=== PATIENT | female | born 1955 | race Caucasian/White ===

== ENCOUNTER 2018-03-11 10:48 | Outpatient (CLI) | payer MEDICAID, SELFPAY ==
[2018-03-11 13:22] LABS: ALT 48 U/L (12-78); AST 29 U/L (15-37); Albumin 3.9 g/dL (3.4-5.0); Alkaline Phosphatase 67 U/L (46-116); Anion Gap 8.2 mmol/L (3-11); BUN 26 mg/dL (7-18); CO2 27.8 mmol/L (21.0-32.0); CREATININE 0.97 mg/dL (0.55-1.02); Calcium 8.5 mg/dL (8.5-10.1); Chloride 104 mmol/L (98-107); Cholesterol 226 mg/dL (50-200); Estimated GFR 58.19 (mL/min/1.73m2); Glucose 86 mg/dL (70-100); HDL Cholesterol 65 mg/dL (40-60); LDL CHOLESTEROL 137 mg/dL (<100); Potassium 4.7 mmol/L (3.5-5.1); Sodium 140 mmol/L (136-145); TSH (W/Ref FT4) 4.64 uIU/mL (0.358-3.74); Total Protein 6.9 g/dL (6.4-8.2); Triglyceride 186 mg/dL (30-150)
[2018-03-11 14:02] LABS: Hemoglobin A1C 5.4 % (4.5-6.2)
== END 2018-03-11 11:08 ==
PROVIDERS: PCP Family Medicine; Visit Provider Family Medicine
DX: I10 Essential (primary) hypertension (principal); E03.9 Hypothyroidism, unspecified; E06.9 Thyroiditis, unspecified
CPT/HCPCS: 36415; 80053; 80061; 83721; 83036; 84439; 84443

== ENCOUNTER 2018-03-20 01:02 | Outpatient (CLI) | payer MEDICAID, SELFPAY ==
[2018-03-20 12:48] LABS: Abs Immature Grans 0.03 k/cumm (0.0-0.09); Absolute Basophil Count 0.07 k/cumm (0.0-0.2); Absolute Eosinophil Count 0.48 k/cumm (0.0-0.7); Absolute Lymphocyte Count 3.12 k/cumm (1.2-3.4); Absolute Monocyte Count 0.99 k/cumm (0.11-0.7); Absolute Neutrophil Count 4.12 k/cumm (1.2-6.7); Basophils % 0.8; Eosinophils % 5.4; HCT 42.8 % (36.0-46.0); HGB 14.1 g/dL (12.0-15.5); Immature Grans % 0.3; Lymphocytes % 35.4; Mean Corp. HGB Concentration 32.9 g/dL (32.0-36.0); Mean Corpuscular Hemoglobin 31.9 pg (27.0-33.0); Mean Corpuscular Volume 96.8 fL (80-95); Mean Platelet Volume 9.9 fL (8.0-11.0); Monocytes % 11.2; Neutrophils % 46.9; Platelet Count 279 x1000/uL (130-400); RBC 4.42 m/cumm (4.00-5.20); RBC Distribution Width 13.1 % (11.7-14.6); White Blood Cell Count 8.81 k/cumm (4.4-10.8)
[2018-03-20 13:14] LABS: ALT 40 U/L (12-78); AST 28 U/L (15-37); Albumin 3.7 g/dL (3.4-5.0); Alkaline Phosphatase 68 U/L (46-116); CREATININE 0.97 mg/dL (0.55-1.02); Cholesterol 192 mg/dL (50-200); Estimated GFR 58.19 (mL/min/1.73m2); HDL Cholesterol 60 mg/dL (40-60); LDL CHOLESTEROL 113 mg/dL (<100); Triglyceride 123 mg/dL (30-150)
[2018-03-20 13:33] LABS: C-Reactive Protein 1.27 mg/dL (0.0-0.3)
[2018-03-20 14:48] LABS: Anion Gap 13.1 mmol/L (3-11); BUN 27 mg/dL (7-18); Bilirubin, Total 0.5 mg/dL (0.2-1.0); CO2 22.9 mmol/L (21.0-32.0); Calcium 8.8 mg/dL (8.5-10.1); Chloride 106 mmol/L (98-107); Glucose 93 mg/dL (70-100); Potassium 4.4 mmol/L (3.5-5.1); Sodium 142 mmol/L (136-145); Total Protein 6.7 g/dL (6.4-8.2)
== END 2018-03-20 01:22 ==
PROVIDERS: PCP Family Medicine; Visit Provider Internal Medicine Rheumatology
DX: Z79.899 Other long term (current) drug therapy (principal); Z13.220 Encounter for screening for lipoid disorders; M06.9 Rheumatoid arthritis, unspecified; I10 Essential (primary) hypertension; M17.11 Unilateral primary osteoarthritis, right knee; Z01.812 Encounter for preprocedural laboratory examination
CPT/HCPCS: 36415; 80053; 80061; 83721; 82040; 82565; 84075; 84450; 84460; 85025; 86140

== ENCOUNTER 2018-03-20 12:56 | Outpatient (CLI) | payer MEDICAID, SELFPAY ==
--- NOTE | 2018-03-20 13:53 | W.PREOPHP ---
Assessment and Plan (1) Arthritis of right knee: Current visit: Yes Status: Chronic Plan: Used knee models to review surgery including surgical technique, pertinent anatomy, and recovery process. Benefits and risks including but not limited to risk of infection, damage to soft tissue/nerve/blood vessels were discussed with patient in detail. After discussion and understanding the associated risks of the procedure patient wishes to proceed with surgery. Patient had opportunity to have questions answered to her satisfaction. Patient had discontinued tocilizumab approximately 4 weeks ago as per pre-surgical recommendation from Dr. Vicente and Dr. Marie. Patient will contact office if any issues arise. She will be scheduled for right total knee replacement with Dr. Vicente. History of Present Illness Chief Complaint: Pre-op for my Right knee replacement Narrative: Ms. Koch is a 63-year-old female who presents to clinic for preoperative visit for right total knee replacement with Dr. Vicente. Patient reports she has been experiencing bilateral knee pain for greater than 10 years. Patient's left knee had been worse than her right until she had a left TKA done on July 31, 2017. Patient reports since she has had her left knee replaced her right knee pain has been more aggravated. Patient is able to identify right knee pain as located in the medial aspect with occasional pain surrounding the patella. Patient describes pain as feeling weak and achy with occasional muscle spasms. Prior to receiving her left TKA patient received bilateral knee injections which provided pain relief, following her left TKA patient received a right knee injection on October 29, 2017 which provided slight pain relief but lasted less than 1 month. Pain is aggravated by going up and especially down stairs, getting in and out of her 's truck, and with squatting to garden. Patient reports she is unable to do several activities she used to enjoy due to her knee pain including yoga, snowshoeing and volleyball. X-rays of her right knee from May 2017 reveal significantly decreased medial joint space with near [id number] articulation seen in weightbearing films, periarticular spurring and degenerative changes of the patellofemoral joint consistent with severe DJD of the right knee. Pertinent Surgical Information Past medical history of hypertension, environmental allergies with associated asthma, rheumatoid arthritis, hypothyroidism Patient reports she only experiences asthma when she has significant environmental allergies. Reports rare episodes of asthma attacks, reports symptoms resolved with an inhaler. She states maximum of 2 episodes in the past year. Denies past medical history of: stroke, cardiac issues, angina, COPD, sleep apnea, renal issues, liver issues, hepatitis, gastrointestinal issues, ulcers, hyperlipidemia, bleeding disorders, seizures, migraines, anxiety, depression, diabetes Denies prior complications from surgery or anesthesia. Review of Systems Constitutional Denies fever(s), Denies frequent falls and Denies headache(s) Eyes Denies change in vision ENT Denies headache(s), Denies epistaxis, Denies nasal congestion, Denies nasal discharge and Denies sore throat Cardiovascular Denies chest pain, Denies rapid heart rate, Denies irregular heart rhythm, Denies dyspnea, Denies dyspnea on exertion and Denies slow heart rate Respiratory Denies dyspnea, Denies dyspnea on exertion and Denies wheezing Gastrointestinal Denies abdominal pain, Denies melena, Denies hematochezia, Denies constipation, Denies diarrhea, Denies nausea and Denies vomiting Genitourinary Denies hematuria, Denies dysuria and Reports urinary urgency Comments: Has history of urinary urgency which is unchanged in recent months Musculoskeletal Reports as per HPI, Denies numbness and Denies tingling Neurologic Denies frequent falls, Denies headache(s), Denies numbness and Denies tingling Psychiatric Denies anxiety and Denies depression Allergic/Immunologic Denies wheezing PFSH Family History Mother Heart disease Osteoarthritis Father Stroke Brother Heart disease Brother No problems noted. Sister No problems noted. Sister No problems noted. Other Diabetes Family history of breast cancer Family history of colon cancer Personal history of malignant neoplasm Medical History Thrombophlebitis (Chronic 05/20/13) Rheumatoid arthritis (Chronic) Primary osteoarthritis of both knees (Chronic 05/15/17) Increased BMI (Chronic) Hypothyroidism (Chronic 03/20/11) Family history of breast cancer (Chronic 10/26/15) Essential hypertension (Chronic 03/14/13) Asthma due to environmental allergies (Chronic) Environmental allergies (Chronic) Hypertension Hypothyroidism Rheumatoid arthritis Social History marital status: current occupational status: other details: 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 replace frequency: 1-2 times per week duration: 15-30 minutes/day Smoking/Tobacco Use Status: Former Tobacco Use quit date: 01/13/14 how long ago did patient quit smokin YRS AGO 01/13/14 (former use: 1/2 ppd for 25 years) alcohol intake: current alcohol intake frequency: holidays/special occasions only Alcohol type: beer and wine substance use type: does not use seatbelt use: always Surgical History Presence of tooth-root and mandibular implants (Chronic) Colonoscopy - IV Sedation (02/09/16) Replacement of total knee joint Meds Home Medications Medication Instructions Recorded Confirmed Type hydroxychloroquine [Plaquenil] 400 mg PO HS 11/15/12 03/20/18 History methotrexate sodium 4 tab PO Q WEEK #36 11/15/12 03/20/18 History albuterol sulfate [Ventolin HFA] 2 puff INHALATION QID PRN #1 ea 05/11/15 03/20/18 History D-Mulsion 5 drp PO DAILY 01/09/17 03/20/18 History Thyrocson 1 cap PO DAILY 01/09/17 03/20/18 History Viracon 1 cap PO DAILY 01/09/17 03/20/18 History Zinc Ag 2 cap PO BID 01/09/17 03/20/18 History Ostinol 5x 1 tab PO DAILY 07/27/17 03/20/18 History levothyroxine 125 mcg PO DAILY #90 tab-cap 08/14/17 03/20/18 Rx aspirin 81 mg PO DAILY tab-cap 09/18/17 03/20/18 History tocilizumab [Actemra] 162 mg SQ qWeek 09/18/17 03/20/18 History atenolol 50 mg PO HS 03/20/18 03/20/18 History loratadine [Claritin] 10 mg PO DAILY PRN 03/20/18 03/20/18 History Allergies Allergy/AdvReac Type Severity Reaction Status Date / Time shellfish derived Allergy Severe Anaphylaxsi Unverified 03/20/18 18:18 s adalimumab [From Humira] AdvReac Intermediate Cold Unverified 03/20/18 18:18 sores/vomiting, lips swelled lisinopril AdvReac Intermediate ELEVATED Unverified 03/20/18 18:18 CREATINE SHRIMP Allergy Severe Anaphylaxsi Uncoded 03/20/18 18:18 s lobster Allergy Intermediate Nausea Uncoded 03/20/18 18:18 Exam Const General: cooperative and no acute distress HENMT Head: normal to inspection, normocephalic and atraumatic Ears: external ears normal General nose exam: external nose normal and no nasal discharge Face and sinus: face symmetric Mouth: oral mucosae normal, lip normal, tongue normal and moist mucous membranes Teeth and gingiva: dentition normal Throat: posterior oropharynx normal Eyes General: appearance normal, both eyes and all related structures Pupils: PERRL EOM: EOM intact bilaterally Neck Neck: trachea midline Carotids: normal carotid upstroke Lymphatic: no lymphadenopathy noted Resp Effort & Inspection: normal respiratory effort and able to speak in complete sentences Auscultation: clear to auscultation bilaterally, no rales, no rhonchi and no wheezes Cardio Heart Sounds: S1 normal, S2 normal, no murmurs, no rubs and no other Pulses: radial pulses present bilaterally GI Palpation: soft, no hepatosplenomegaly and nontender Auscultation: normal bowel sounds Skin General skin exam: no rashes or lesions noted Extrem Other: Right knee examination: Skin is intact without areas of erythema, edema, lesions or rashes. Tenderness to palpation along medial aspect of joint and slight tenderness at lateral aspect with palpation. Active range of motion reveals flexion contracture of approximately 5 degrees and has flexion of 110 degrees. Passive range of motion yields flexion of 120 degrees with pain elicited at end of range of motion. Knee is stable to valgus and varus stress with slight tenderness elicited along the medial aspect with knee stress. No patellar apprehension is noted. Muscle strength testing result resisted flexion and extension was 5 out of 5 and did not elicit pain. Results Labs : 03/20/18 13:30 03/20/18 13:30 Laboratory Results - last 24 hr 03/20/18 13:30 WBC 9.47 RBC 4.44 Hgb 14.3 Hct 42.8 MCV 96.4 H MCH 32.2 MCHC 33.4 RDW 13.0 Plt Count 267 MPV 9.3
== END 2018-03-20 13:16 ==
PROVIDERS: PCP Family Medicine; Visit Provider Student in an Organized Health Care Education/Training Program
DX: R69 Illness, unspecified (principal)
CPT/HCPCS: 36415; 80048; 85027; NC

== ENCOUNTER 2018-03-26 08:01 | Inpatient (IN) | payer MEDICAID, SELFPAY ==
[2018-03-26] VITALS (12 sets, daily range): BP systolic 93–148; BP diastolic 51–116; PULSE 56–74; RESP 13–21; TEMP 36.4–36.6; O2SAT 93–98
[2018-03-26] MEDS: Celecoxib 200 MG CAP 400 MG PO (09:11)
[2018-03-26] MEDS: Gabapentin 300 MG CAP PO ×2 (09:11→21:20)
[2018-03-26] MEDS: Acetaminophen 500 MG TAB 1000 MG PO ×3 (09:12→19:22)
[2018-03-26] MEDS: Lactated Ringers 1,000 ML 80 ML IV ×3 (09:13→23:07)
[2018-03-26] MEDS: oxyCODONE-CR 10 MG TABCR PO (09:13)
[2018-03-26] MEDS: Bupivacaine 0.25% Pres-Free 10 ML VIAL (10:15)
[2018-03-26] MEDS: Bupivacaine LIPOSOME/PF 133 MG/10 ML VIAL IJ ×2 (10:15→12:40)
[2018-03-26] MEDS: Bupivacaine 0.25% Pres-Free 30 ML VIAL (12:40)
[2018-03-26] MEDS: Ketorolac 30 MG/ML VIAL (12:40)
--- NOTE | 2018-03-26 15:01 | PT.INNT ---
Date of service: 03/26/18 Time of Service: 15:01 PT Notes PHYSICAL THERAPY NOTE 03/26/18 PT consult received, chart reviewed. Pt not yet on unit to be evaluated. Nina Nayak PT
--- NOTE | 2018-03-26 15:08 | PDOC.ANES ---
Note pt had intra op emesis coffee colored liquid while sedated under spinal anesthesia. Doubt pulmonary aspiration but observe for signs: dyspnea, congestion,fever, wheezing. See anesthesia record under comments. Suctioned mouth, no material found on deep suctioning. Lung sounds clear, saturation good, pt reactive. Quick exam with [place] scope showed no material at cords. In further discussion with patient in PACU, she has been having gastric issues with arthritis meds including vomiting what she thought was coffee. Dr. Vicente aware and has her on PPI.Advised her to follow up with her specialist regarding her gastric issues.
--- NOTE | 2018-03-26 15:11 | ANES_ITS ---
Note pt had intra op emesis coffee colored liquid while sedated under spinal anesthesia. Doubt pulmonary aspiration but observe for signs: dyspnea, congestion,fever, wheezing. See anesthesia record under comments. Suctioned mouth, no material found on deep suctioning. Lung sounds clear, saturation good , pt reactive. Quick exam with [place] scope showed no material at cords. In further discussion with patient in PACU, she has been having gastric issues with arthritis meds including vomiting what she thought was coffee. Dr. Vicente aware and has her on PPI.Advised her to follow up with her specialist regarding her gastric issues.
[2018-03-26] MEDS: Celecoxib 100 MG CAP 200 MG PO (19:22)
[2018-03-26] MEDS: Aspirin 81 MG CHEW PO (19:22)
[2018-03-26] MEDS: Atenolol 50 MG TAB PO (21:20)
[2018-03-26] MEDS: Hydroxychloroquine 200 MG TAB 400 MG PO (21:20)
[2018-03-27] MEDS: Levothyroxine 125 MCG TAB PO (05:56)
--- NOTE | 2018-03-27 06:39 | W.PM.OP ---
Date of service: 03/26/18 Time of Service: 12:39 Operative Note DATE OF PROCEDURE: 03/26/18 PRE-OP DIAGNOSIS: Right knee osteoarthritis POST-OP DIAGNOSIS: same PROCEDURE: Right Total Knee Replacement SURGEON: Sage Vicente PATIENT TRANSPORTATION DRIVER: Ubaldo Mead ANESTHESIA: regional and spinal ESTIMATED BLOOD LOSS: 300 PATHOLOGY: none sent TOURNIQUET TIME: 35 COMPLICATIONS: None Patient was transported to: PACU Patient's condition: stable Implants: 1. Depuy Attune Posterior Stabilized Femoral Component, Size 6 2. Depuy Attune Fixed Platform Tibial Component, Size 4 3. Depuy Attune 6 x 7 mm fixed, Stabilized Poly 4. Depuy Attune Patellar Component, Size 35 mm Indications: I have seen Ela in clinic for symptoms of RIGHT knee arthritis, confirmed with radiographic findings. Ela has exhausted nonoperative methods and was having significant limitations in daily function and desired better function and less pain. I discussed the technical details of a knee replacement. I explained the risks of the procedure to include, but not limited to, bleeding, infection, pain, stiffness, fracture, damage to nerves and vessels, damage to muscles and tendons, loosening, need for repeat procedure, blood clot and cardiopulmonary demise. Despite these risks, she elected to proceed. Findings: There was significant signs of arthritis throughout the knee. There is also significant synovitis seen throughout the knee which was debrided. Procedure Description: Ela was greeted in the preoperative holding area where the correct side was identified and marked. The consent was reviewed with the patient and signed. The history and physical was updated. All questions were answered. Preoperative mediacations were administered: Acetaminophen 1000mg, Celebrex 400mg, Gabapentin 300mg, and Oxycontin 10mg. An adductor canal block was then administered by the anesthesia team in the PACU. Ela was taken back to the operating room. A spinal anesthestic was then administered. The patient was placed into the supine position on the operating room table. A nonsterile tourniquet was placed high onto the leg but only used for cementing. Posts were placed for positioning during the procedure. All bony prominences were well padded. Prophylactic antibiotics in the form of cefazolin were administered. 1g of Tranxemic Acid was given intravenously within 30 minutes of incision. The right leg was then prepped with Chloraprep and draped in a standard fashion with impervious stockinette and extremity drape with Iodine impregnated skin protection. A timeout to confirm correct identity, side and site, procedure, allergies, anesthesia, and medical concerns was performed. With the knee in some flexion, a midline incision was made overlying the knee. Full thickness skin flaps were raised once the extensor mechanism was encountered. These were raised medially and laterally. Any bleeding was controlled with electrocautery. Once the extensor mechanism was fully exposed, a medial parapatellar arthrotomy was performed in a flexed position. All bleeding from the arthrotomy and the geniculate arteries was coagulated. A medial subperiosteal peel was performed with electrocautery to the midcoronal plane. Due to the significant varus deformity the entire medial tibial plateau was exposed. The fat pad was removed while keeping the patellar tendon protected. The anterior distal femur synovium was removed for later visualization. The ACL and PCL were resected and the anterior horn of the lateral meniscus was transected. The knee was then flexed with the patella everted. Large osteophytes from the tibia were removed. Large osteophytes from the femur were removed. Hypertrophic synovium from within the knee was also removed sharply. Using a step drill, and based on preoperative templating, the femoral canal was entered. This was done with a step drill without any difficulty. The intramedullary distal femoral cut guide was inserted, set to a 5 degree valgus cut and 10mm cut thickness. There was some hypoplasia of the lateral femoral condyle and any remnant cartilage of the medial femoral condyle was removed for appropriate thickness. The distal femoral cut guide was then held in position and pinned. With the soft tissues protected, the distal cut was performed. This was passed over a few times to ensure a planar cut. I then turned attention to the tibia. The extramedullary guide was placed onto the leg. The distal aspect was slid medial to adjust for position of center of ankle and stay in line with shaft of the tibia. Approximately 3-5 degrees of posterior slope was kept in the proximal cutting guide. The center of the guide was aligned with the PCL. The stylus was used to assess cut thickness. The medial side, most involved side, was set for a 4mm cut. This was then held in position and pinned into place with 2 additional pins and a cross pin for stability. The medial and lateral collateral ligaments were protected and the cut was performed. With this completed, it was assessed and noted to be of appropriate dimensions. The guide was removed. A spacer block was inserted and the knee was brought into extension. The 6mm spacer block provided full extension, without hyperextension and with stability of both the medial and lateral collateral ligaments was assessed. The pins from the femur and the tibia were then removed. The distal femur was then sized. The anterior stylus was placed onto the lateral ridge of the anterior femur. This indicated a size 6 femur. The external rotation of the guide was adjusted to 5 degrees to match the epicondylar axis, perpendicular to Iza?s line. The 4-in-1 cutting guide was the placed. The posterior medial femur cut was evaluated and appeared of good thickness. The spacer block was inserted underneath the cutting guide and stability was confirmed in 90 degrees of flexion. An hernandez wing was used to confirm appropriate position of the anterior cut to avoid notching. This cutting guide was ensured to be flush on the cut surface and then pinned into place with headed pins. While protecting the soft tissues, quad tendon, and collateral ligaments, the anterior and posterior cuts were performed with a saw. The central two pins were removed and the posterior and anterior chamfers were cut next. The notch-cutting guide was placed. This was pinned to lateralize the femoral component as much as possible while keeping it flush on the cut surface. This was then pinned into position. A reciprocating saw was used to make the notch cut. A rasp smoothed the cut surfaces. A trial posterior stabilized femoral component was then inserted, impacted down to the cut surfaces, and the lug holes were drilled. A provisional trial tibial component was placed and the knee was brought through range of motion. The polyethylene was trialed until there was good flexion and extension with excellent stability to the medial and lateral collaterals. The patella was tracking without thumbs. The tibial cut surface was fully exposed. The medial and lateral menisci were removed. The tibia was then sized as a 4. The tibia had been previously marked during trialing to correspond to the center of the tibial component to help with rotation. The trial was aligned to this ubaldo, approximately rotated to the medial 1/3rd of the tibial tubercle. The trial was pinned into place. The tibia was prepared with a reamer and a keel punch. The knee was then brought into extension and the patella was measured as 27 mm. Using the patellar clamp and cut guide, this was resected to a flat surface with at least 13mm of thickness remaining. The size 35 mm patella fit the best. This was oriented and then clamped into position. The lugs were drilled. The trial components were removed. The final components, except for the polyethylene were opened on the back table. The periosteal and capsular tissues, especially posteriorly, around the knee were then systematically injected with a periarticular cocktail consisting of 50cc 0.25% Marcaine, 30mg Ketorolac, 20cc of Exparal and 50cc of injectable saline. The tourniquet was then inflated to 275mmHg. The knee was thoroughly irrigated with a pulse lavage and dried. On the back table, with the implants opened, the cement was mixed. 2 batches of antibiotic laden cement were prepared with vacuum assistance. After the cement was ready a small amount was placed on to the back side of the tibial component at the keel. A small amount was placed onto the posterior flange of the femur. Cement was manual pressurized and impregnated into the cut surface of the tibia. The tibial component was then inserted into the cut surface and impacted into position. Excess cement was removed and the component was reimpacted. Again, excess cement was removed and our attention was then turned to the femur. The femoral cut surface was once again dried and cement was manually impacted into the cut surface. The femoral component was lined with the lug holes and impacted. Excess cement was removed. It was ensured to be down against the cut surface. The trial polyethylene was then inserted and the leg was brought out into full extension for the duration of the cement curing process, approximately 15min. Cement was lastly manually impacted into the cut surface of the patella and the patellar button was clamped into position and held. During this process attention was turned to the gutters of the knee and for all interfaces for any excess cement. After the cement had finally cured, approximately 15min, the clamp was removed from the patella and the knee was taken through range of motion. A size 7 mm polyethylene component provided the best range of motion and stability with less than 2mm gapping with medial and lateral stress and full extension without significant hyperextension. The patella was tracking with a no-thumbs technique. The trial poly was removed and once again the knee was checked for any loose, excess, or errant cement. The poly component was then inserted and impacted into position after cleaning and drying the tibial tray. The capsule was then reapproximated with a No. 1 Vicryl at multiple locations. The capsule was finally closed with a No. 2 Stratafix, barbed suture. The tourniquet was then released and the arthrotomy appeared watertight without significant bleeding. The second dosing of 1g TXA was started. Deep tissues were then reapproximated with 0 Vicryl and 2-0 Vicryl. The skin was closed with a running 3-0 Monocryl in a subcuticular fashion. This was reinforced with skin glue. A Mepilex silver dressing was applied along with a advv-wa-pioix DANIKA wrap. A CryoCuff was applied. Ela was transferred to the hospital bed without difficulty an suffering no apparent complication. Ela has a good prognosis. Physical therapy will start today and without restrictions, weight-bearing as tolerated. Aspirin 81mg BID will be used for DVT prophylaxis.
[2018-03-27 07:15] VITALS: BP 145/86; PULSE 63; RESP 18; TEMP 36.6; O2SAT 96
--- NOTE | 2018-03-27 08:04 | PDOC.CMIN ---
- If Service Date Differs Date of service: 03/27/18 Time of Service: 13:03 Care Management Initial Assess REASON FOR HOSPITALIZATION:: (R) Knee DJD PAST MEDICAL HISTORY/PAST SURGICAL HISTORY:: Thrombophlebitis (Chronic 05/20/13). Rheumatoid arthritis (Chronic). Primary osteoarthritis of both knees (Chronic 05/15/17). Increased BMI (Chronic). Hypothyroidism (Chronic 03/20/11). Family history of breast cancer (Chronic 10/26/15). Essential hypertension (Chronic 03/14/13). 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 Environmental allergies (Chronic). Hypertension. Hypothyroidism. Rheumatoid arthritis. Presence of tooth-root and mandibular implants (Chronic). Colonoscopy - IV Sedation (02/09/16). Replacement of total knee joint PREVIOUS FUNCTIONAL STATUS/SOCIAL/FAMILY SUPPORTS:: Ela resides with her [facility] in [facility] CURRENT FUNCTIONAL STATUS:: Currently Ela is sitting up in her recliner when this program writer visits this morning. She is pleasant and open to discussion. ADVANCE DIRECTIVES:: On file - [employer] Koch is agent. Son Fredo Koch is alternate Has patient been provided with information about the portal?: Yes Did the patient sign up for the portal?: No CODE STATUS:: Full Code INSURANCE COVERAGE / FINANCIAL ISSUES:: Medicaid CURRENT HOME/COMMUNITY SERVICES/EQUIPMENT:: Currently Ela has a cane and FWW at home. She has no home services. PRIMARY CARE PHYSICIAN:: Dr. Meredith POTENTIAL DISCHARGE NEEDS:: F/U appointment with Dr. Vicente PATIENT/FAMILY EDUCATION NEEDS:: Review DC instructions, any limitations, and ongoing DC planning discussion. Discuss Ask Me Three ANTICIPATED BARRIERS TO DISCHARGE:: None identified at this time TRANSPORTATION:: Via private vehicle with family PLAN:: Ela will return home with no services. She will F/U with Dr. Vicente and plan of care as prescribed. Ela's [employer] will transport when ready.
--- NOTE | 2018-03-27 08:07 | INITIAL_ITS ---
- If Service Date Differs Date of service: 03/27/18 Time of Service: 13:03 Care Management Initial Assess REASON FOR HOSPITALIZATION:: (R) Knee DJD PAST MEDICAL HISTORY/PAST SURGICAL HISTORY:: Thrombophlebitis (Chronic 05/20/13) . Rheumatoid arthritis (Chronic). Primary osteoarthritis of both knees ( Chronic 05/15/17). Increased BMI (Chronic). Hypothyroidism (Chronic 03/20/11) . Family history of breast cancer (Chronic 10/26/15). Essential hypertension ( Chronic 03/14/13). 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 Environmental allergies (Chronic). Hypertension. Hypothyroidism. Rheumatoid arthritis. Presence of tooth-root and mandibular implants (Chronic). Colonoscopy - IV Sedation (02/09/16). Replacement of total knee joint PREVIOUS FUNCTIONAL STATUS/SOCIAL/FAMILY SUPPORTS:: Ela resides with her [facility] in [facility] CURRENT FUNCTIONAL STATUS:: Currently Ela is sitting up in her recliner when this feature writer visits this morning. She is pleasant and open to discussion. ADVANCE DIRECTIVES:: On file - [facility] Koch is agent. Son Fredo Koch is alternate Has patient been provided with information about the portal?: Yes Did the patient sign up for the portal?: No CODE STATUS:: Full Code INSURANCE COVERAGE / FINANCIAL ISSUES:: Medicaid CURRENT HOME/COMMUNITY SERVICES/EQUIPMENT:: Currently Ela has a cane and FWW at home. She has no home services. PRIMARY CARE PHYSICIAN:: Dr. Meredith POTENTIAL DISCHARGE NEEDS:: F/U appointment with Dr. Vicente PATIENT/FAMILY EDUCATION NEEDS:: Review DC instructions, any limitations, and ongoing DC planning discussion. Discuss Ask Me Three ANTICIPATED BARRIERS TO DISCHARGE:: None identified at this time TRANSPORTATION:: Via private vehicle with family PLAN:: Ela will return home with no services. She will F/U with Dr. Vicente and plan of care as prescribed. Ela's [facility] will transport when ready.
[2018-03-27] MEDS: Celecoxib 100 MG CAP 200 MG PO (09:34)
[2018-03-27] MEDS: Acetaminophen 500 MG TAB 1000 MG PO ×2 (09:35→13:28)
[2018-03-27] MEDS: Aspirin 81 MG CHEW PO (09:35)
[2018-03-27] MEDS: Pantoprazole 40 MG TABCR PO (09:35)
--- NOTE | 2018-03-27 09:38 | IN_ITS ---
Date of service: 03/27/18 Time of Service: 09:30 PT Notes Date: 03/27/18 Referring Doctor: Sage Vicente PT Orders: Pt Consult: s/p R TKA Precautions: WBAT R LE PATIENT PROFILE/ADMITTING DIAGNOSIS: Pt is a 62 year old female s/p R TKA by Dr. Vicente on 03/27/18. PMHX: s/p L TKA by Dr. Vicente on 07/31/17, osteoarthritis B knees L>R, rheumatoid arthritis, hypertension, asthma, hypothyroidism Social History/Home Situation: Lives in a house with with 6 stairs with railing to enter. Baseline mobility independent with mobility and ADLs. Equipment owned/DME: cane, FWW SUBJECTIVE: Pt lying in bed, alert and agreeable to PT consult. States she feels good and is hoping to go home this afternoon. OBJECTIVE: General Observation: IV L UE, Ren catheter, cryocuff R LE Mental Status: A & O x3 Pain: no c/o pain BED MOBILITY/TRANSFERS: Supine-Sit: independent Sit-Stand: independent with FWW Bed-chair: independent with FWW Stand-Sit: independent GAIT: FWW WBAT R LE, independent 250ft step through gait pattern STAIRS: Pt able to ascend/descend 10 steps with left railing and cane, WBAT R LE independently THEREX: Performed ankle pumps, quad sets, glute sets 20 reps each- has issued home exercise program BALANCE: Static sitting: normal Dynamic Sitting: normal Static Standing: fair Dynamic Standing: fair Basic Mobility Short Form: aw score 20, standardized score 47.67 CMS score 35.83% CMS modifier CJ ASSESSMENT: Pt is a 62 year old female s/p L TKA by Dr. Vicente on 07/31/17 in setting of R TKA, osteoarthritis B knees L>R, rheumatoid arthritis, hypertension , asthma, hypothyroidism. Patient presents with the following impariment level findings: weakness right quad post operatively, decreased standing balance requiring FWW for gait stabiilty post op. Pt was independent with transfers this morning, independent with gait using FWW and independent on stairs. She is ready for discharge to home setting when medically cleared. GOALS not applicable PLAN OF CARE/TREATMENT PLAN: PT eval only- ready for discharge to home DISCHARGE RECOMMENDATIONS Home, has FWW TREATMENT TIME/MINUTES/CODES 26min 9:26 LIVE Nayak PT
--- NOTE | 2018-03-27 10:55 | DSE_ITS ---
Date of service: 03/27/18 Time of Service: 07:53 DS: Diagnosis Discharge Diagnosis (1) Arthritis of right knee: Status: Chronic Discharge Plan Disposition Patient Disposition: HOME Condition: Good Discharge Details Reason For Visit: RIGHT KNEE DJD Admit Date/Time: 03/26/18 08:01 Admit Provider: Sage Vicente Attending Provider: Sage Vicente Primary Care Provider: Deanne Meredith [facility] Course Hospital Course: Patient was admitted to the medical/surgical floor following the procedure. It was tolerated well without any notable medical, surgical, or anesthetic complications. Mobilization began postoperatively. The pelayo catheter was removed and voiding spontaneously. Vitals were stable. Physical therapy worked with the patient and was cleared for discharge home. No acute medical issues. Home Meds and New Rx's Prescriptions: New polyethylene glycol 3350 17 gram Powder In Packet 17 g PO BID PRN PRN (Reason: Constipation) Qty: 0 RF: 0 pantoprazole 40 mg Tablet,Delayed Release (Dr/Ec) 40 mg PO DAILY@0730 Qty: 30 RF: 1 docusate sodium [Colace] 100 mg Capsule 100 mg PO BID PRN PRN (Reason: Constipation) Qty: 0 RF: 0 gabapentin 300 mg Capsule 300 mg PO HS Qty: 7 RF: 0 celecoxib [Celebrex] 100 mg Capsule 100 mg PO BID Qty: 60 RF: 0 acetaminophen 500 mg capsule 1,000 mg PO Q8H PRN (Reason: pain) Qty: 90 RF: 0 oxycodone 5 mg tablet 5 mg PO Q4H Qty: 12 RF: 0 Continue methotrexate sodium 2.5 MG tablet 4 tab PO Q WEEK Qty: 36 RF: 4 hydroxychloroquine [Plaquenil] 200 MG tablet 400 mg PO HS RF: 0 albuterol sulfate [Ventolin HFA] 8 GM HFA aerosol inhaler 2 puff Inhalation QID PRNQty: 1 RF: 4 d-mulsion 5 drp PO DAILY RF: 0 thyrocson 1 cap PO DAILY RF: 0 viracon 1 cap PO DAILY RF: 0 zinc ag 2 cap PO BID RF: 0 levothyroxine 125 MCG tablet 125 mcg PO DAILY Qty: 90 RF: 12 Ostinol 5x 1 tab PO DAILY RF: 0 atenolol 50 MG tablet 50 mg PO HS RF: 0 loratadine [Claritin] 10 mg Tablet 10 mg PO DAILY PRNRF: 0 Changed aspirin 81 MG tablet,chewable 81 mg PO BID Qty: 80 RF: 0 tocilizumab [Actemra] 162 MG/0.9 ML syringe 162 mg subcut qWeek Qty: 0 RF: 0 Discharge Instructions Additional Instructions: Dr. Vicente?s Total Knee Discharge Instructions Activity: The most important activity is to walk. You should try to take short walks a few times a day. It is important that when resting you work on keeping the knee straight. Avoid putting a pillow behind the knee as this will encourage flexion. Work on range of motion exercises as provided by Physical Therapy. - Start outpatient physical therapy within 2 weeks. - You should wear the HEAVEN hose on both legs for 4 weeks. Dressing: Keep the surgical dressing in place for at least one week. After the first week it may be removed and replace with light gauze and tape or nothing. It may get wet after 3 days but avoid soaking the dressing. If it gets wet, just lightly pat dry. Medications: - You should take Tylenol and anti-inflammatory (Celebrex or Meloxicam) as your primary pain control medications - You have been prescribed a stronger pain medication (Oxycodone or Dilaudid) for breakthrough pain, take as needed as prescribed. - You will be taking Aspirin 81mg twice a day for DVT prevention unless instructed otherwise. - If you have constipation you should take Colace or Miralax (both over-the- counter). It takes most people 3-4 days to have a bowel movement. - You will take Protonix (Pantropazole) for stomach acid prevention Follow-up: 2 weeks Activity:: Activity as Tolerated Equipment/Supplies:: No Equipment Needed Diet:: Normal Diet Discharge Orders Discharge Orders: Discharge Order (Routine); Ordered 03/27/18 Ordered By: Sage Vicente DS: Data Vitals/I&O Vitals and I&O: Vital Signs Temperature 36.6 C 03/27/18 07:15 Temperature Source Tympanic 03/27/18 07:15 Pulse 63 03/27/18 07:15 Pulse Rhythm Regular 03/26/18 19:15 Respiratory Rate 18 03/27/18 07:15 Respiratory Effort 03/26/18 19:15 Respiratory Depth Normal 03/26/18 19:15 Respiratory Pattern Normal 03/26/18 19:15 Blood Pressure 145/86 H 03/27/18 07:15 Pulse Oximetry 96 03/27/18 07:15 Respiratory End-tidal CO2 38 03/26/18 14:15 Oxygen Delivery Method Room Air 03/27/18 07:15 Oxygen Flow Rate 0 03/27/18 07:15 Pain Level 2 03/27/18 09:35 Intake & Output 03/26/18 03/26/18 03/27/18 11:59 23:59 11:59 Intake Total 110 / 110 2031.333 / 2031.333 550 / 550 Output Total 500 / 500 3200 / 3200 Balance 110 / 110 1531.333 / 1531.333 -2650 / -2650 Weight 118 kg 118 kg Intake: IV 110 / 110 1791.333 / 1791.333 50 / 50 Oral 240 / 240 500 / 500 Output: Urine 200 / 200 3200 / 3200 Estimated Blood Loss 300 / 300 Other: Urine Color Yellow Yellow Pale Yellow Urine Appearance Clear Clear Clear Emesis Description None
[2018-03-27 11:05] VITALS: BP 123/69; PULSE 61; RESP 20; TEMP 36.6; O2SAT 93
--- NOTE | 2018-03-27 13:12 | PDOC.CMDIS ---
- If Service Date Differs Date of service: 03/27/18 Time of Service: 13:12 LACE Index Scoring Tool - Questions: Length of Stay (in days): 2 Acuity (Admit via E.D.?): No E.D. Visits: 0 - Answers: Total Score: 2 Risk of Readmission: Low Risk Care Management Discharge Reason for Hospitalization: (R) Knee DJD Discharge Plan: Ela will return home today with no services. She will F/U with Dr. Vicente and plan of care as prescribed. Ela's family will transport when ready. Patient/Family Education Needs: Review DC instructions, any limitations, and discuss Ask Me Three
== END 2018-03-27 13:33 | disposition home or self-care (01) | DRG 470 ==
LOC: PDS 08:04 → MS 15:45
PROVIDERS: Admitting Provider Student in an Organized Health Care Education/Training Program; PCP Family Medicine; Visit Provider Student in an Organized Health Care Education/Training Program
PROC: 0SRC0J9 Replacement of Right Knee Joint with Synthetic Substitute, Cemented, Open Approach (ICD-10-PCS; CPT 27447; principal; 2018-03-26 11:00)
DX: M17.11 Unilateral primary osteoarthritis, right knee (principal); K91.81 Other intraoperative complications of digestive system; Z96.651 Presence of right artificial knee joint; R11.10 Vomiting, unspecified; E03.9 Hypothyroidism, unspecified; I10 Essential (primary) hypertension; M06.9 Rheumatoid arthritis, unspecified; Z96.652 Presence of left artificial knee joint
CPT/HCPCS: 27447; 76942; 97161; NC; J0690; J1100; J1885; J2250; J2370; J2405; J8610

== ENCOUNTER 2018-04-10 10:10 | Outpatient (CLI) | payer MEDICAID, SELFPAY ==
--- NOTE | 2018-04-10 10:01 | DI.RAD_ITS ---
SYMPTOM/DIAGNOSIS: S/P RT TKA RIGHT KNEE AND LEG LENGTH STUDY: The left leg measures 89.5 cm. The right leg measures 89.3 cm. The patient is status post right and left TKR. The prostheses in good position. Surrounding bone intact. Images of the right knee reveal a right TKR. The prosthesis is intact and in good position. Surrounding bone well maintained.
== END 2018-04-10 10:30 ==
PROVIDERS: PCP Family Medicine; Visit Provider Student in an Organized Health Care Education/Training Program
DX: Z47.1 Aftercare following joint replacement surgery (principal); Z96.651 Presence of right artificial knee joint; Z96.652 Presence of left artificial knee joint
CPT/HCPCS: 73560; 77073

== ENCOUNTER 2018-07-24 02:03 | Outpatient (CLI) | payer MEDICAID, SELFPAY ==
[2018-07-24 12:43] LABS: Abs Immature Grans 0.01 k/cumm (0.0-0.09); Absolute Basophil Count 0.06 k/cumm (0.0-0.2); Absolute Eosinophil Count 0.33 k/cumm (0.0-0.7); Absolute Lymphocyte Count 2.59 k/cumm (1.2-3.4); Absolute Neutrophil Count 2.28 k/cumm (1.2-6.7); Eosinophils % 5.5; HCT 45.8 % (36.0-46.0); HGB 14.9 g/dL (12.0-15.5); Immature Grans % 0.2; Lymphocytes % 43.4; Mean Corp. HGB Concentration 32.5 g/dL (32.0-36.0); Mean Corpuscular Hemoglobin 30.8 pg (27.0-33.0); Mean Corpuscular Volume 94.8 fL (80-95); Mean Platelet Volume 10.7 fL (8.0-11.0); Monocytes % 11.7; Neutrophils % 38.2; Platelet Count 219 x1000/uL (130-400); RBC 4.83 m/cumm (4.00-5.20); White Blood Cell Count 5.97 k/cumm (4.4-10.8)
[2018-07-24 13:11] LABS: ALT 48 U/L (12-78); AST 30 U/L (15-37); Albumin 3.9 g/dL (3.4-5.0); Alkaline Phosphatase 68 U/L (46-116); BUN 21 mg/dL (7-18); C-Reactive Protein 0.05 mg/dL (0.0-0.3); CREATININE 1.09 mg/dL (0.55-1.02); Calcium 9.3 mg/dL (8.5-10.1); Chloride 106 mmol/L (98-107); Estimated GFR 50.86 (mL/min/1.73m2); Glucose 90 mg/dL (70-100); Potassium 4.5 mmol/L (3.5-5.1); Sodium 143 mmol/L (136-145); Total Protein 6.9 g/dL (6.4-8.2)
== END 2018-07-24 02:23 ==
PROVIDERS: PCP Family Medicine; Visit Provider Internal Medicine Rheumatology
DX: M06.9 Rheumatoid arthritis, unspecified (principal); Z79.899 Other long term (current) drug therapy
CPT/HCPCS: 36415; 80053; 85025; 86140

== ENCOUNTER 2018-09-10 11:16 | Outpatient (CLI) | payer MEDICAID, SELFPAY ==
[2018-09-10 15:13] LABS: TSH (W/Ref FT4) 2.09 uIU/mL (0.358-3.74)
== END 2018-09-10 11:36 ==
PROVIDERS: PCP Family Medicine; Visit Provider Family Medicine
DX: E03.9 Hypothyroidism, unspecified (principal)
CPT/HCPCS: 36415; 84443

== ENCOUNTER 2018-11-27 01:14 | Outpatient (CLI) | payer MEDICAID, SELFPAY ==
[2018-11-27 10:46] LABS: Abs Immature Grans 0.01 k/cumm (0.0-0.09); Absolute Basophil Count 0.09 k/cumm (0.0-0.2); Absolute Eosinophil Count 0.29 k/cumm (0.0-0.7); Absolute Lymphocyte Count 2.57 k/cumm (1.2-3.4); Absolute Monocyte Count 0.55 k/cumm (0.11-0.7); Absolute Neutrophil Count 1.92 k/cumm (1.2-6.7); Basophils % 1.7; Eosinophils % 5.3; HGB 14.7 g/dL (12.0-15.5); Immature Grans % 0.2; Lymphocytes % 47.3; Mean Corp. HGB Concentration 33.4 g/dL (32.0-36.0); Mean Corpuscular Volume 95.9 fL (80-95); Mean Platelet Volume 9.9 fL (8.0-11.0); Monocytes % 10.1; Neutrophils % 35.4; Platelet Count 177 x1000/uL (130-400); RBC 4.59 m/cumm (4.00-5.20); RBC Distribution Width 13.6 % (11.7-14.6); White Blood Cell Count 5.43 k/cumm (4.4-10.8)
[2018-11-27 11:07] LABS: ALT 44 U/L (12-78); AST 32 U/L (15-37); Albumin 3.7 g/dL (3.4-5.0); Alkaline Phosphatase 79 U/L (46-116); Anion Gap 9.1 mmol/L (3-11); BUN 24 mg/dL (7-18); Bilirubin, Total 0.7 mg/dL (0.2-1.0); C-Reactive Protein 0.07 mg/dL (0.0-0.3); CO2 25.9 mmol/L (21.0-32.0); CREATININE 0.78 mg/dL (0.55-1.02); Calcium 8.9 mg/dL (8.5-10.1); Chloride 107 mmol/L (98-107); Glucose 86 mg/dL (70-100); Potassium 5.1 mmol/L (3.5-5.1); Sodium 142 mmol/L (136-145); Total Protein 6.4 g/dL (6.4-8.2)
== END 2018-11-27 01:34 ==
PROVIDERS: PCP Family Medicine; Visit Provider Internal Medicine Rheumatology
DX: M06.9 Rheumatoid arthritis, unspecified (principal); Z79.899 Other long term (current) drug therapy
CPT/HCPCS: 36415; 80053; 85025; 86140

== ENCOUNTER 2018-12-03 12:20 | Outpatient (REF) | payer MEDICAID, SELFPAY ==
--- NOTE | 2018-12-03 11:00 | PAPFT_PTH ---
PATIENT: Ela Koch LOC: [facility] U#:[id number] AGE/SX: 63/F ROOM: RE12/03/[address]: JEANNETTE Wagner : 1955 BED: DIS: 12/03/2018 SPEC #: [id number] RECD: 12/03/18 12:53 STATUS: GT REAmena #: [id number] VANDANA: 12/03/18 11:[address]: Saira Joaquin DEPT: REPLACED BY [facility] Cytology RECD BY: Naomi Nolan ENTERED: 12/03/18 12:53 SP TYPE: PAPFT OTHR DR: Deanne Meredith MD, DC Tissues: 1 - CX/ENDOCX FOR PAP SMEARS Procedures: PAP THIN PREP/UVM Screening HPV DNA PROBE Comments: [id number]
== END 2018-12-03 12:40 ==
LOC: LBN 12:20
PROVIDERS: PCP Family Medicine; Visit Provider Nurse Practitioner Family
DX: Z12.4 Encounter for screening for malignant neoplasm of cervix (principal); Z11.51 Encounter for screening for human papillomavirus (HPV)
CPT/HCPCS: 88142; 87624

== ENCOUNTER 2018-12-10 01:11 | Outpatient (CLI) | payer MEDICAID, SELFPAY ==
--- NOTE | 2018-12-10 12:30 | DI.MAMMO_ITS ---
SYMPTOMS/DIAGNOSIS: SCREENING, Z12.31 MAMMOGRAM: Mammograms were interpreted according to the usual protocol including computer analysis with CAD system, tomosynthesis and C view imaging. Comparison is made with exams from 2012 through 2017. The breasts are composed of scattered fibroglandular densities, breast density Category B. No suspicious masses or suspicious microcalcifications are seen. There has been no significant change. IMPRESSION: Category I, negative mammogram. Yearly screening mammography is recommended. [facility] ASSESSMENT OF FINDINGS: Negative. Category 1. Patient will receive a letter notifying them of these results. BI-RADS category B. There are scattered areas of fibroglandular density.
== END 2018-12-10 01:31 ==
PROVIDERS: PCP Family Medicine; Visit Provider Nurse Practitioner Family
DX: Z12.31 Encounter for screening mammogram for malignant neoplasm of breast (principal)
CPT/HCPCS: 77063; 77067

== ENCOUNTER 2019-03-27 09:08 | Outpatient (CLI) | payer MEDICAID, SELFPAY ==
--- NOTE | 2019-03-27 08:49 | DI.RAD_ITS ---
EXAM: XR KNEE RT 2V AP,LAT INDICATION: ANNUAL F/U. COMPARISON: XR knee RT 1V from 04/10/2018 TECHNIQUE: 2D digital imaging was performed. FINDINGS: Has been no change in the total knee prosthesis or surrounding bone.. IMPRESSION:
--- NOTE | 2019-03-27 09:20 | DI.RAD_ITS ---
EXAM: XR LUMBAR SPINE AP, LAT INDICATION: ?spinal stenosis;b ankle pain;numb posterior thigh. COMPARISON: No exams were available for comparison TECHNIQUE: 2D digital imaging was performed. FINDINGS: No compression fractures are seen. There are small endplate osteophytes throughout. There is moder ate to severe narrowing of the L5-S1 disc space. The remaining disc spaces are well maintained. The re are prominent facet degenerative changes at L L3-4 through L5-S1. There are no spondylolysis. Th ere is mild mild spondylolisthesis at L4-5 secondary to facet degenerative changes. There is no scol iosis. There are degenerative changes of the left SI joint. IMPRESSION: . Degenerative disc changes at L5-S1. Prominent facet degenerative changes of the lower lumbar spin e.
== END 2019-03-27 09:28 ==
PROVIDERS: PCP Family Medicine; Visit Provider Student in an Organized Health Care Education/Training Program
DX: Z96.659 Presence of unspecified artificial knee joint; M25.571 Pain in right ankle and joints of right foot; M25.572 Pain in left ankle and joints of left foot; R20.0 Anesthesia of skin; M51.17 Intervertebral disc disorders with radiculopathy, lumbosacral region; M47.27 Other spondylosis with radiculopathy, lumbosacral region; Z47.1 Aftercare following joint replacement surgery
CPT/HCPCS: 72100; 73560

== ENCOUNTER 2019-04-03 00:56 | Outpatient (CLI) | payer MEDICAID, SELFPAY ==
--- NOTE | 2019-04-03 13:44 | DI.MRI_ITS ---
EXAM: MR LUMBAR SPINE WO CLINICAL HISTORY: spinal stenosis; bilateral ankle pain/swelling; M48.00, SPINAL STENOSIS. TECHNIQUE: Multiplanar multisequence MRI was performed. MR examination lumbosacral spine was perfor med according to the usual protocol. COMPARISON: No exams were available for comparison FINDINGS: There is loss of disc height and disc signal at L5-S1 consistent with disc degeneration. Peridiscal vertebral signal changes also noted at this level. Moderate multilevel loss of disc signal also seen throughout the visualized region consistent with disc degeneration. There are severe hypertrophic degenerative changes involving the facet joints at L3-4, L4-5, and L5-S 1 bilaterally. Moderate hypertrophic degenerative changes of the upper lumbar facet joints noted as well. There is a moderate disc bulge at L5-S1. Slight right lateral disc herniation may be present, this i s a questionable finding. There is bilateral neural foraminal narrowing noted at L5-S1. No significant findings at L4-5 apart from facet hypertrophy. No significant findings at L2-3 or L3-4 levels apart from facet hypertrophy. IMPRESSION: Severe multilevel facet arthropathy. No focal disc lesion aside from questioned slight right lateral disc herniation at L5-S1.
== END 2019-04-03 01:16 ==
PROVIDERS: PCP Family Medicine; Visit Provider Physician Assistant
DX: M48.061 Spinal stenosis, lumbar region without neurogenic claudication (principal); M25.571 Pain in right ankle and joints of right foot; M25.572 Pain in left ankle and joints of left foot; M79.89 Other specified soft tissue disorders; M51.37 Other intervertebral disc degeneration, lumbosacral region; M51.27 Other intervertebral disc displacement, lumbosacral region
CPT/HCPCS: 72148

== ENCOUNTER 2019-04-09 02:29 | Outpatient (CLI) | payer MEDICAID, SELFPAY ==
[2019-04-09 12:38] LABS: Abs Immature Grans 0.06 k/cumm (0.0-0.09); Absolute Basophil Count 0.08 k/cumm (0.0-0.2); Absolute Eosinophil Count 0.42 k/cumm (0.0-0.7); Absolute Lymphocyte Count 2.68 k/cumm (1.2-3.4); Absolute Monocyte Count 0.69 k/cumm (0.11-0.7); Absolute Neutrophil Count 2.83 k/cumm (1.2-6.7); Basophils % 1.2; Eosinophils % 6.2; HCT 43.5 % (36.0-46.0); HGB 14.2 g/dL (12.0-15.5); Immature Grans % 0.9; Lymphocytes % 39.6; Mean Corp. HGB Concentration 32.6 g/dL (32.0-36.0); Mean Corpuscular Hemoglobin 31.2 pg (27.0-33.0); Mean Corpuscular Volume 95.6 fL (80-95); Mean Platelet Volume 9.8 fL (8.0-11.0); Monocytes % 10.2; Neutrophils % 41.9; Platelet Count 244 x1000/uL (130-400); RBC 4.55 m/cumm (4.00-5.20); RBC Distribution Width 13.5 % (11.7-14.6); White Blood Cell Count 6.76 k/cumm (4.4-10.8)
[2019-04-09 13:30] LABS: ALT 41 U/L (14-59); AST 27 U/L (15-37); Albumin 4.1 g/dL (3.4-5.0); Alkaline Phosphatase 69 U/L (46-116); Anion Gap 9.7 mmol/L (3-11); BUN 18 mg/dL (7-18); Bilirubin, Total 0.8 mg/dL (0.2-1.0); C-Reactive Protein < 0.05 mg/dL (0.0-0.3); CO2 25.3 mmol/L (21.0-32.0); CREATININE 0.96 mg/dL (0.55-1.02); Calcium 8.8 mg/dL (8.5-10.1); Chloride 105 mmol/L (98-107); Glucose 88 mg/dL (70-100); Potassium 4.3 mmol/L (3.5-5.1); Sodium 140 mmol/L (136-145); Total Protein 6.8 g/dL (6.4-8.2)
[2019-04-10 11:34] LABS: Hepatitis C Ab w Rflx HCV PCR Negative (NEGAT)
== END 2019-04-09 02:49 ==
PROVIDERS: PCP Family Medicine; Visit Provider Internal Medicine Rheumatology
DX: E03.9 Hypothyroidism, unspecified (principal); Z11.59 Encounter for screening for other viral diseases; M06.9 Rheumatoid arthritis, unspecified; Z79.899 Other long term (current) drug therapy; Z00.00 Encounter for general adult medical examination without abnormal findings
CPT/HCPCS: 36415; 80053; 86803; 84443; 85025; 86140

== ENCOUNTER 2019-07-29 02:24 | Outpatient (CLI) | payer MEDICAID, SELFPAY ==
[2019-07-29 10:46] LABS: Abs Immature Grans 0.01 k/cumm (0.0-0.09); Absolute Basophil Count 0.04 k/cumm (0.0-0.2); Absolute Eosinophil Count 0.23 k/cumm (0.0-0.7); Absolute Monocyte Count 0.54 k/cumm (0.11-0.7); Absolute Neutrophil Count 2.64 k/cumm (1.2-6.7); Basophils % 0.8; Eosinophils % 4.5; HCT 44.6 % (36.0-46.0); HGB 14.6 g/dL (12.0-15.5); Immature Grans % 0.2 %; Lymphocytes % 32.9; Mean Corp. HGB Concentration 32.7 g/dL (32.0-36.0); Mean Corpuscular Hemoglobin 31.1 pg (27.0-33.0); Mean Corpuscular Volume 94.9 fL (80-95); Mean Platelet Volume 9.7 fL (8.0-11.0); Monocytes % 10.5; Neutrophils % 51.1; Platelet Count 238 x1000/uL (130-400); RBC Distribution Width 13.2 % (11.7-14.6); White Blood Cell Count 5.16 k/cumm (4.4-10.8)
[2019-07-29 10:56] LABS: ALT 37 U/L (14-59); AST 27 U/L (15-37); Albumin 3.9 g/dL (3.4-5.0); Alkaline Phosphatase 63 U/L (46-116); Anion Gap 10.1 mmol/L (3-11); BUN 16 mg/dL (7-18); CO2 24.9 mmol/L (21.0-32.0); CREATININE 0.95 mg/dL (0.55-1.02); Calcium 8.5 mg/dL (8.5-10.1); Chloride 108 mmol/L (98-107); Estimated GFR 59.41 (mL/min/1.73m2); Glucose 94 mg/dL (74-106); Potassium 4.5 mmol/L (3.5-5.1); Sodium 143 mmol/L (136-145); Total Protein 6.3 g/dL (6.4-8.2)
[2019-07-29 10:57] LABS: C-Reactive Protein < 0.05 mg/dL (0.0-0.3)
== END 2019-07-29 02:44 ==
PROVIDERS: PCP Family Medicine; Visit Provider Internal Medicine Rheumatology
DX: M06.9 Rheumatoid arthritis, unspecified (principal); Z79.899 Other long term (current) drug therapy
CPT/HCPCS: 36415; 80053; 85025; 86140

== ENCOUNTER 2020-04-01 02:23 | Outpatient (CLI) | payer BC, SELFPAY ==
--- NOTE | 2020-04-01 07:15 | DI.US_ITS ---
EXAM: US SOFT TISSUE HEAD OR NECK CLINICAL HISTORY: r neck mass - 1.5 yr,r22.1. TECHNIQUE: Ultrasound was performed using standard protocol. COMPARISON: No exams were available for comparison FINDINGS: Sonographic assessment utilizing grayscale and color Doppler imaging was performed and targeted to th e area of clinical concern. The palpable abnormality corresponds to a lymph node measuring 1.6 by 0.7 x 0.7 cm. Other smaller ly mph nodes are also seen. There are no suspicious findings. IMPRESSION: 1.6 centimeter lymph node corresponds to palpable abnormality in the right side of the neck. DATA REPOSITORY:
--- NOTE | 2020-04-01 11:30 | DI.MAMMO_ITS ---
EXAM: MAMMO SCREENING CLINICAL HISTORY: screening,z12.39 TECHNIQUE: Mammograms were interpreted according to the usual protocol including computer analysis w [employer] XO CAD system, tomosynthesis and C-view imaging. COMPARISON: 2010 through 2018 FINDINGS: The breasts are composed of scattered fibroglandular densities, Breast Density category B. No suspicious masses or suspicious microcalcifications are seen. Vascular calcifications are inciden tally noted. No skin thickening or abnormal axillary lymph nodes are seen. There has been no significant change from prior exams. IMPRESSION: BI-RADS Category 1, Negative mammogram Yearly screening mammography is recommended. Breast Density - Category B, scattered fibroglandular densities. A negative radiographic report should not delay biopsy if a dominant or clinically suspicious mass is present. Up to ten percent of cancers are not identified on mammography. A negative report may reinforce clinical impression. Adenosis and dense breasts may obscure an underlying neoplasm. False positive reports average 6 to 10%. Patient will receive a letter notifying them of these results.
== END 2020-04-01 02:43 ==
PROVIDERS: PCP Family Medicine; Visit Provider Family Medicine
DX: Z12.31 Encounter for screening mammogram for malignant neoplasm of breast (principal); R22.1 Localized swelling, mass and lump, neck
CPT/HCPCS: 76536; 77063; 77067

== ENCOUNTER 2020-05-03 03:52 | Outpatient (CLI) | payer BC, MEDICAID, SELFPAY ==
[2020-05-03 12:38] LABS: HCT 44.2 % (36.0-46.0); HGB 14.4 g/dL (11.2-15.7); MCH 31.2 pg (27.0-33.0); MCHC 32.6 % (32.0-36.0); MCV 95.7 fL (80-95); MPV 10.2 fL (8.0-11.0); Platelet Count 213 10^3/uL (130-400); RBC 4.62 10^6/uL (3.93-5.22); RDW 12.8 % (11.7-14.6); RDW-SD 45.1 fL; WBC 6.64 10^3/uL (4.4-10.8)
[2020-05-03 14:17] LABS: ALT 36 U/L (14-59); AST 26 U/L (15-37); Alkaline Phosphatase 72 U/L (46-116); Anion Gap 8.4 mmol/L (3-11); BUN 20 mg/dL (7-18); Bilirubin, Total 0.9 mg/dL (0.2-1.0); CO2 24.6 mmol/L (21.0-32.0); CREATININE 0.92 mg/dL (0.55-1.02); Calcium 8.6 mg/dL (8.5-10.1); Chloride 107 mmol/L (98-107); Glucose 90 mg/dL (74-106); Potassium 4.6 mmol/L (3.5-5.1); Sodium 140 mmol/L (136-145); TSH (W/Ref FT4) 1.42 uIU/mL (0.36-3.74); Total Protein 6.7 g/dL (6.4-8.2)
[2020-05-03 14:27] LABS: C-Reactive Protein < 0.05 mg/dL (0.0-0.3)
== END 2020-05-03 04:12 ==
PROVIDERS: PCP Family Medicine; Visit Provider Internal Medicine Rheumatology
DX: Z00.00 Encounter for general adult medical examination without abnormal findings (principal); E03.9 Hypothyroidism, unspecified; M06.9 Rheumatoid arthritis, unspecified; Z79.899 Other long term (current) drug therapy
CPT/HCPCS: 36415; 80053; 85027; 84443; 86140

== ENCOUNTER 2020-05-10 00:27 | Outpatient (CLI) | payer BC, MEDICAID, SELFPAY ==
[2020-05-10] MEDS: Normal Saline - Diluent 50 ML VIAL IV (14:01)
[2020-05-10] MEDS: Omnipaque 350 MG/ML 100 ML BTL IJ (14:02)
--- NOTE | 2020-05-10 14:10 | DI.CT_ITS ---
EXAM: CT NECK W CLINICAL HISTORY: NECK MASS, R22.1 TECHNIQUE: COMPARISON: No exams were available for comparison FINDINGS: CT examination of the cervical region was performed with intravenous infusion of 100 cc of Omnipaque 350. The lung apices are clear. 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 No other significant vascular abnorma lity identified in the cervical region. Patient reportedly has question of a right sided neck mass at mid to lower cervical level. No soft t issue mass is identified on the right. The thyroid is unremarkable in appearance. The tracheal jenny ngeal structures appear intact. There is no cervical adenopathy. The salivary glands are unremarkab le in appearance. There is asymmetric fat in the thoraco cervical junction region with increased fat to the left of the trachea as compared to the right, the findings could represent a left lipoma in a paratracheal locat ion at the thoracic inlet, transverse measurements of this lipomatous region measure about 42 x 26 mi llimeters in transaxial dimensions and about 70 millimeters in height.. The trachea is deviated mild ly to the right which could produce the affect of a an apparent right cervical mass. There is no maximino dence of enhancement in this region. Visualized intracranial structures appear intact. The orbital and temporal bone structures are unrem arkable. Paranasal sinuses and visualized mastoid air cells are appear clear. 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 Please correlate clinic ally. If additional evaluation is clinically appropriate, an MRI of cervical and upper thoracic vishal on could confirm that this is a lipoma. RADIATION DOSE DELIVERED: 597.39mGy.cm Total DLP
== END 2020-05-10 00:47 ==
PROVIDERS: PCP Family Medicine; Visit Provider Otolaryngology Otolaryngology/Facial Plastic Surgery
DX: D17.79 Benign lipomatous neoplasm of other sites (principal)
CPT/HCPCS: 70491; J3490

== ENCOUNTER 2020-06-07 01:16 | Outpatient (CLI) | payer BC, MEDICAID, SELFPAY ==
--- NOTE | 2020-06-07 | DI.MRI_ITS ---
EXAM: MR ORBIT FACIAL NECK WO/W CLINICAL HISTORY: NECK MASS, RHEUMATOID ARTHRITIS, R22.1, M06.9 TECHNIQUE: Multiplanar multisequence MRI was performed. CONTRAST MATERIAL: IV Contrast: 20 mL of Magnevist contrast administered. COMPARISON: CT CT NECK W from 05/10/2020 FINDINGS: The exam is somewhat limited by motion and patient body habitus. The fatty attenuation lesion seen at the left thoracic inlet follows fatty signal by MRI. There are no abnormal areas of enhancement. 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 Again causes mild de viation of the trachea toward the right. No additional masses are identified. 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 Parotids/submandibular/thyroid gland: Normal. Lymphadenopathy: There is scattered lymph nodes seen along the level one to level three all measurin g less than 8 mm in short axis diameter which are physiologic in nature. . . IMPRESSION: Lesion seen at the left thoracic inlet on CT is consistent with a simple lipoma by MRI. No additiona l masses are seen. DATA REPOSITORY:
[2020-06-07] MEDS: Normal Saline Flush 10 ML SYR IVP (09:24)
[2020-06-07] MEDS: Gadoterate meglumine 20 ML VIAL IVP (09:25)
== END 2020-06-07 01:36 ==
PROVIDERS: PCP Family Medicine; Visit Provider Physician Assistant
DX: R22.1 Localized swelling, mass and lump, neck (principal); M06.9 Rheumatoid arthritis, unspecified
CPT/HCPCS: 70543

== ENCOUNTER 2020-12-31 02:16 | Outpatient (CLI) | payer MEDICARE, SELFPAY ==
[2020-12-31 12:43] LABS: Abs Immature Grans 0.01 10^3/uL (0.0-0.06); Absolute Basophil Count 0.06 10^3/uL (0.0-0.2); Absolute Lymphocyte Count 2.18 10^3/uL (1.2-3.4); Absolute Monocyte Count 0.71 10^3/uL (0.1-0.8); Basophils % 1.2; Eosinophils % 5.8; HCT 43.8 % (36.0-46.0); HGB 14.4 g/dL (11.2-15.7); Immature Grans % 0.2; Lymphocytes % 42.2; MCH 30.6 pg (27.0-33.0); MCHC 32.9 % (32.0-36.0); MPV 10.5 fL (8.0-11.0); Monocytes % 13.8; Neutrophils % 36.8; Nucleated RBC 0 %; Platelet Count 215 10^3/uL (130-400); RBC 4.71 10^6/uL (3.93-5.22); RDW 12.5 % (11.7-14.6); WBC 5.16 10^3/uL (4.4-10.8)
[2020-12-31 13:27] LABS: ALT 36 U/L (14-59); AST 30 U/L (15-37); Albumin 4.1 g/dL (3.4-5.0); Alkaline Phosphatase 63 U/L (46-116); BUN 30 mg/dL (7-18); Calcium 9.1 mg/dL (8.5-10.1); Calculated LDL 130 mg/dL (<100); Chloride 103 mmol/L (98-107); Cholesterol 205 mg/dL (<200); Estimated GFR 55.82 (mL/min/1.73m2); Glucose 102 mg/dL (74-106); HDL Cholesterol 64 mg/dL (40-60); Potassium 3.3 mmol/L (3.5-5.1); Sodium 142 mmol/L (136-145); TSH (W/Ref FT4) 0.42 uIU/mL (0.36-3.74); Total Protein 6.7 g/dL (6.4-8.2); Triglyceride 55 mg/dL (<150)
[2021-01-03 05:05] LABS: Vitamin D 25 Total 29.9 ng/mL (30-100)
== END 2020-12-31 02:17 | disposition home or self-care (01) ==
LOC: LOS 02:16
PROVIDERS: PCP Family Medicine; Visit Provider Family Medicine
DX: Z00.00 Encounter for general adult medical examination without abnormal findings (principal); I10 Essential (primary) hypertension; E03.9 Hypothyroidism, unspecified; M06.9 Rheumatoid arthritis, unspecified; R63.8 Other symptoms and signs concerning food and fluid intake; E55.9 Vitamin D deficiency, unspecified
CPT/HCPCS: 36415; 80053; 80061; 82306; 84443; 85025

== ENCOUNTER 2021-01-10 01:55 | Outpatient (RCR) | payer MEDICARE, SELFPAY ==
[2021-01-10] MEDS: Normal Saline Flush 10 ML SYR IVP (13:02)
== END 2021-02-08 23:59 | disposition home or self-care (01) ==
LOC: INF 01:55
PROVIDERS: PCP Family Medicine; Visit Provider Internal Medicine
DX: M05.9 Rheumatoid arthritis with rheumatoid factor, unspecified (principal)
CPT/HCPCS: 96365; J3262

== ENCOUNTER 2021-04-04 01:07 | Outpatient (CLI) | payer MEDICARE, SELFPAY ==
[2021-04-04 12:23] LABS: Abs Immature Grans 0.02 10^3/uL (0.0-0.06); Absolute Basophil Count 0.08 10^3/uL (0.0-0.2); Absolute Eosinophil Count 0.43 10^3/uL (0.0-0.7); Absolute Lymphocyte Count 2.36 10^3/uL (1.2-3.4); Absolute Monocyte Count 0.53 10^3/uL (0.1-0.8); Absolute Neutrophil Count 3.12 10^3/uL (1.2-6.7); Basophils % 1.2; Eosinophils % 6.6; HCT 45.9 % (36.0-46.0); HGB 14.6 g/dL (11.2-15.7); Immature Grans % 0.3; Lymphocytes % 36.1; MCH 30.4 pg (27.0-33.0); MCHC 31.8 % (32.0-36.0); MCV 95.6 fL (80-95); MPV 10.3 fL (8.0-11.0); Monocytes % 8.1; Neutrophils % 47.7; Nucleated RBC 0 %; Platelet Count 246 10^3/uL (130-400); RDW 13.1 % (11.7-14.6); RDW-SD 46.2 fL; WBC 6.54 10^3/uL (4.4-10.8)
[2021-04-04 12:51] LABS: ALT 37 U/L (14-59); AST 26 U/L (15-37); Albumin 3.8 g/dL (3.4-5.0); Alkaline Phosphatase 80 U/L (46-116); Anion Gap 7.9 mmol/L (3-11); BUN 17 mg/dL (7-18); Bilirubin, Total 0.9 mg/dL (0.2-1.0); CO2 28.1 mmol/L (21.0-32.0); Calcium 8.8 mg/dL (8.5-10.1); Chloride 108 mmol/L (98-107); Estimated GFR 55.64 (mL/min/1.73m2); Glucose 95 mg/dL (74-106); Potassium 4.3 mmol/L (3.5-5.1); Sodium 144 mmol/L (136-145); Total Protein 6.5 g/dL (6.4-8.2)
[2021-04-04 12:53] LABS: C-Reactive Protein < 0.05 mg/dL (0.0-0.3)
== END 2021-04-04 01:08 | disposition home or self-care (01) ==
LOC: LOS 01:08
PROVIDERS: PCP Family Medicine; Visit Provider Internal Medicine Rheumatology
DX: M06.09 Rheumatoid arthritis without rheumatoid factor, multiple sites (principal); Z79.899 Other long term (current) drug therapy
CPT/HCPCS: 36415; 80053; 85025; 86140

== ENCOUNTER 2021-04-06 09:31 | Outpatient (CLI) | payer MEDICARE, SELFPAY ==
--- NOTE | 2021-04-06 09:00 | DI.US_ITS ---
Exam(s) US LOWER EXTREMITY VENOUS LT EXAM: US LOWER EXTREMITY VENOUS LT CLINICAL HISTORY: l leg swelling, M79.89 TECHNIQUE: Grayscale, color, and doppler imaging of the deep venous system of the lower extremity w as performed. COMPARISON: US US SOFT TISSUE HEAD OR NECK from 04/01/2020 FINDINGS: Images are submitted for interpretation There is no evidence of intraluminal thrombus and there is normal compression and augmentation demons trated within the common femoral vein, femoral vein, and popliteal vein. In the ipsilateral calf the interrogated veins also exhibit normal compression/ augmentation properti es. There is thrombus in the greater saphenous vein extends for distance of approximately 18 cm. IMPRESSION: 1. No evidence of DVT in the left lower extremity. 2. However, there is extensive thrombus in the left greater saphenous vein. DATA REPOSITORY:
--- NOTE | 2021-04-06 09:00 | DI.RAD_ITS ---
Exam(s) XR CHEST 2V PA LATERAL EXAM: XR CHEST 2V PA LATERAL CLINICAL HISTORY: cough, R05.9. TECHNIQUE: 2D digital imaging was performed. COMPARISON: No exams were available for comparison FINDINGS: Heart size is normal. The mediastinum is not widened. Lungs are clear. No infiltrates nor pleural effusions. IMPRESSION: No acute pulmonary findings.No significant change compared to 06/17/2015 DATA REPOSITORY: RADIATION DOSE DELIVERED:
--- NOTE | 2021-04-06 09:00 | DI.CT_ITS ---
Exam(s) CT SINUS WO EXAM: CT SINUS WO CLINICAL HISTORY: r side sinusitis J32.9. TECHNIQUE: Imaging Protocol: Axial computed tomography images with coronal and sagittal reformatted images were created and reviewed. No IV Contrast COMPARISON: CT HEAD WITHOUT CONTRAST from 04/02/2015 FINDINGS: MAXILLARY SINUSES: No significant mucosal thickening nor fluid levels. There is no evidence of bone dehiscence. OSTIOMEATAL UNITS: Patent bilaterally ETHMOIDAL AIR CELLS: Well aerated. No mucosal thickening nor fluid levels. SPHENOID SINUSES: Well aerated. No mucosal thickening nor fluid levels. FRONTAL SINUSES: Well aerated. No mucosal thickening nor fluid levels. NASAL SEPTUM AND TURBINATES:Nasal septum slightly deviated towards the right side. There is no promi nent nasal septal spur. There is no evidence of susan bullosa. Visualized orbits appear unremarkable. IMPRESSION: 1. No significant focal findings in the paranasal sinuses. 2. Nasal septum is slightly deviated towards the right side. RADIATION DOSE DELIVERED: 115.62mGy.cm Total DLP DATA REPOSITORY: All CT scans at this facility are submitted to the National Radiology Data Registry (NRDR) Dose Index Registry (DIR) with the [employer] ([employer]). RADIATION OPTIMIZATION: All CT scans at this facility use at least one of these dose optimization te chniques: automated exposure control; mA and/or kV adjustment per patient size (includes targeted exa ms where dose is matched to clinical indication); or iterative reconstruction.
--- NOTE | 2021-04-06 18:14 | DI.VRAD_ITS ---
PROCEDURE INFORMATION: Exam: US Duplex Left Lower Extremity Veins, Limited Exam date and time: 04/06/2021 3:05 PM Age: 66 years old Clinical indication: Swelling (edema) of limb; Lower extremity, left TECHNIQUE: Imaging protocol: Real-time Duplex ultrasound of the Left Lower Extremity with 2-D denson scale, color Doppler flow and spectral waveform analysis with image documentation. Limited exam focused on the left lower extremity veins. COMPARISON: No relevant prior studies available. FINDINGS: Left deep veins: The visualized common femoral, deep femoral, femoral, and popliteal veins are patent without thrombus. Normal compressibility and waveforms. No thrombus in the visualized posterior tibial vein. Left superficial veins: There is occlusive and nonocclusive thrombus seen in the greater saphenous vein extending approximately 18 cm. Soft tissues: Unremarkable. IMPRESSION: 1. No evidence of DVT in the left lower extremity. 2. Thrombus in the left greater saphenous vein. Dictated and Authenticated by: Juan Amos MD. Ordering:LEONEL Alicea MD
== END 2021-04-06 09:51 ==
PROVIDERS: PCP Family Medicine; Visit Provider Family Medicine
DX: R05.8 Other specified cough (principal); J32.9 Chronic sinusitis, unspecified; M79.89 Other specified soft tissue disorders; I82.812 Embolism and thrombosis of superficial veins of left lower extremity; J34.2 Deviated nasal septum
CPT/HCPCS: 70486; 71046; 93971

== ENCOUNTER 2021-06-07 18:55 | Outpatient (REF) | payer MEDICARE, SELFPAY ==
[2021-06-09 16:16] LABS: COVID-19 RT-PCR UVMMC Result Negative (Negative)
== END 2021-06-07 18:56 | disposition home or self-care (01) ==
LOC: LBN 18:55
PROVIDERS: PCP Family Medicine; Visit Provider Family Medicine
DX: N39.0 Urinary tract infection, site not specified (principal); R05.9 Cough, unspecified; Z20.822 Contact with and (suspected) exposure to COVID-19
CPT/HCPCS: 87077; U0003; 87086; 87186

== ENCOUNTER 2021-06-28 16:27 | Outpatient (REF) | payer MEDICARE, SELFPAY ==
[2021-06-28 22:13] LABS: Bilirubin Negative (Negative); Blood Trace-intact (Negative); Clarity Sl Cloudy (Clear); Glucose Negative (Negative); Ketones Negative (Negative); Leukocyte Esterase Small (Negative); Nitrite Negative (Negative); Specific Gravity 1.025 (1.005-1.025); Urobilinogen 0.2 EU/dL (Up TO 0.2); pH 5.5 (5-8)
[2021-06-28 22:19] LABS: Epithelial Cells Negative HPF (Negative); RBC Negative HPF (0-2); WBC >50 HPF (0-5)
[2021-06-28 22:20] LABS: Bacteria Many HPF (Negative); C & S Indicated? Yes; Casts Negative LPF (Negative); Crystals Negative HPF (Negative); Mucus Negative (Negative)
== END 2021-06-28 16:28 | disposition home or self-care (01) ==
LOC: LBN 16:27
PROVIDERS: PCP Family Medicine; Visit Provider Family Medicine
DX: R35.0 Frequency of micturition (principal); R39.89 Other symptoms and signs involving the genitourinary system
CPT/HCPCS: 87077; 81003; 81015; 87086; 87186

== ENCOUNTER 2021-07-07 01:08 | Outpatient (CLI) | payer MEDICARE, SELFPAY ==
--- NOTE | 2021-07-07 08:15 | DI.MAMMO_ITS ---
Exam(s) MAMMO SCREENING EXAM: MAMMO SCREENING CLINICAL HISTORY: screening,z12.39 TECHNIQUE: Bilateral full field digital CC and MLO mammographic images were obtained with 3D tomosyn thesis and utilizing computer aided detection (CAD). COMPARISON: Available for comparison. FINDINGS: Masses/Architectural Distortion: None seen. Microcalcifications: No suspicious pleomorphic-type are seen. Skin Thickening/Nipple Retraction: None. IMPRESSION: 1. No significant interval change with no specific features of malignancy noted. 2. Unless there is more urgent need, screening mammography is recommended, as per [employer] guidelines. BI-RADS Category 1 - Negative Breast Density - Category B - Scattered areas of fibroglandular density Breast density category C or D implies that the patient has dense breast tissue. Dense breast tissue is very common and is not abnormal but dense breast tissue can make it harder to find cancer on a ma mmogram. Also, dense breast tissue may increase their breast cancer risk. This information about the result of the mammogram report was provided to the patient to raise their awareness. Use this report when you speak with the patient about their risks for breast cancer, which includes their family hist ory. At that time, you may recommend for more screening tests (Ultrasound or MRI) as they might be us eful based on their risk. A negative radiographic report should not delay biopsy if a dominant or clinically suspicious mass is present. Up to ten percent of cancers are not identified on mammography. A negative report may reinforce clinical impression. Adenosis and dense breasts may obscure an underlying neoplasm. False positive reports average 6 to 10%. Patient will receive a letter notifying them of these results.
--- NOTE | 2021-07-07 08:27 | DI.DEXA_ITS ---
Exam(s) XR DEXA BONE DENSITY W/WO YUVAL EXAM: XR DEXA BONE DENSITY W/WO YUVAL CLINICAL HISTORY: osteoporosis,m81.0 TECHNIQUE: COMPARISON: No exams were available for comparison FINDINGS: Lateral Spine Image: Unremarkable. No compression deformities identified. Left hip: Total T-Score: -0.7. The T-score in the femoral neck is -2.7 consistent with osteoporosis. Total Z-Score: 0.5 T- and Z-scores: Osteoporosis in the left femoral neck. Lumbar Spine: Total T-Score: 0.8 Total Z-Score: 2.5 T- and Z-scores: Within normal limits. IMPRESSION: Osteoporosis in the left femoral neck.
== END 2021-07-07 01:28 ==
PROVIDERS: PCP Family Medicine; Visit Provider Family Medicine
DX: Z12.31 Encounter for screening mammogram for malignant neoplasm of breast (principal); M81.0 Age-related osteoporosis without current pathological fracture
CPT/HCPCS: 77063; 77067; 77080

== ENCOUNTER 2021-07-27 02:14 | Outpatient (RCR) | payer MEDICARE, SELFPAY ==
[2021-07-27] MEDS: Normal Saline Flush 10 ML SYR IVP (07:36)
== END 2021-08-08 23:59 | disposition home or self-care (01) ==
LOC: INF 02:14
PROVIDERS: PCP Family Medicine; Visit Provider Nurse Practitioner Acute Care
DX: M05.9 Rheumatoid arthritis with rheumatoid factor, unspecified (principal)
CPT/HCPCS: 96365; J3262

== ENCOUNTER 2021-10-10 13:28 | Outpatient (REF) | payer MEDICARE, SELFPAY ==
--- NOTE | 2021-10-10 13:10 | PAPFT_PTH ---
PATIENT: Ela Koch LOC: [facility] U#:[id number] AGE/SX: 66/F ROOM: RE10/10/[address]: JEANNETTE Wagner : 1955 BED: DIS: 10/10/2021 SPEC #: [id number] RECD: 10/10/21 17:52 STATUS: GT REQ #: [id number] VANDANA: 10/10/21 13:[address]: Saira Joaquin DEPT: [facility] Cytology RECD BY: Naomi Nolan ENTERED: 10/10/21 17:53 SP TYPE: PAPFT OTHR DR: Deanne Meredith MD, DC Tissues: 1 - CX/ENDOCX FOR PAP SMEARS Procedures: PAP THIN PREP/UVM Screening HPV DNA PROBE Comments: [id number]
== END 2021-10-10 13:29 | disposition home or self-care (01) ==
LOC: LBN 13:28
PROVIDERS: PCP Family Medicine; Visit Provider Nurse Practitioner Family
DX: R30.0 Dysuria (principal); Z12.4 Encounter for screening for malignant neoplasm of cervix; Z11.51 Encounter for screening for human papillomavirus (HPV)
CPT/HCPCS: 88142; 87086; 87624

== ENCOUNTER 2021-10-18 02:11 | Outpatient (CLI) | payer MEDICARE, SELFPAY ==
[2021-10-18 12:51] LABS: ALT 37 U/L (14-59); AST 29 U/L (15-37); Albumin 4.3 g/dL (3.4-5.0); Alkaline Phosphatase 76 U/L (46-116); Anion Gap 10.4 mmol/L (3-11); BUN 34 mg/dL (7-18); CO2 25.6 mmol/L (21.0-32.0); CREATININE 1.2 mg/dL (0.55-1.02); Calcium 8.8 mg/dL (8.5-10.1); Chloride 107 mmol/L (98-107); Estimated GFR 45.09 (mL/min/1.73m2); Glucose 90 mg/dL (74-106); Potassium 4.4 mmol/L (3.5-5.1); Sodium 143 mmol/L (136-145); Total Protein 6.8 g/dL (6.4-8.2)
[2021-10-18 13:01] LABS: Hemoglobin A1C 5.6 % (<5.7)
== END 2021-10-18 02:12 | disposition home or self-care (01) ==
LOC: LOS 02:11
PROVIDERS: PCP Family Medicine; Visit Provider Family Medicine
DX: I10 Essential (primary) hypertension (principal); E11.9 Type 2 diabetes mellitus without complications
CPT/HCPCS: 36415; 80053; 83036

== ENCOUNTER 2021-10-28 18:45 | Outpatient (REF) | payer MEDICARE, SELFPAY ==
[2021-10-30 14:34] LABS: COVID-19 RT-PCR UVMMC Result Negative (Negative)
== END 2021-10-28 18:46 | disposition home or self-care (01) ==
LOC: LBN 18:45
PROVIDERS: PCP Family Medicine; Visit Provider Family Medicine
DX: Z20.822 Contact with and (suspected) exposure to COVID-19 (principal); R09.89 Other specified symptoms and signs involving the circulatory and respiratory systems
CPT/HCPCS: U0003

== ENCOUNTER 2021-11-16 03:18 | Outpatient (RCR) | payer MEDICARE, SELFPAY ==
[2021-11-16] MEDS: TOCILIZUMAB 800 MG in Normal Saline 60 ML 100 MG IVPB (11:35)
[2021-11-16] MEDS: Normal Saline Flush 10 ML SYR IVP (11:35)
== END 2021-12-08 23:59 | disposition home or self-care (01) ==
LOC: INF 03:18
PROVIDERS: PCP Family Medicine; Visit Provider Nurse Practitioner Family
DX: M05.9 Rheumatoid arthritis with rheumatoid factor, unspecified (principal)
CPT/HCPCS: 96365; J3262

== ENCOUNTER 2021-12-15 02:48 | Outpatient (RCR) | payer MEDICARE, SELFPAY ==
[2021-12-15] MEDS: TOCILIZUMAB 800 MG in Normal Saline 60 ML 100 MG IVPB (07:54)
[2021-12-15] MEDS: Normal Saline Flush 10 ML SYR IVP (07:55)
== END 2022-01-08 23:59 | disposition home or self-care (01) ==
LOC: INF 02:48
PROVIDERS: PCP Family Medicine; Visit Provider Nurse Practitioner Family
DX: M05.9 Rheumatoid arthritis with rheumatoid factor, unspecified (principal)
CPT/HCPCS: 96365; J3262

== ENCOUNTER 2022-01-06 01:05 | Outpatient (CLI) | payer MEDICARE, SELFPAY ==
[2022-01-06 13:02] LABS: ALT 39 U/L (14-59); AST 28 U/L (15-37); Albumin 4.1 g/dL (3.4-5.0); Alkaline Phosphatase 66 U/L (46-116); Anion Gap 9.4 mmol/L (3-11); BUN 27 mg/dL (7-18); Bilirubin, Total 1.2 mg/dL (0.2-1.0); CO2 26.6 mmol/L (21.0-32.0); COMMENT (LAB VIEW ONLY) 124.16 mg/dL; CREATININE 1.2 mg/dL (0.55-1.02); Calcium 8.8 mg/dL (8.5-10.1); Chloride 104 mmol/L (98-107); Estimated GFR 44.95 (mL/min/1.73m2); Glucose 93 mg/dL (74-106); Microalb ug/mg Crea 4.3 ug/mg Cr; Potassium 4.3 mmol/L (3.5-5.1); Sodium 140 mmol/L (136-145); Total Protein 6.8 g/dL (6.4-8.2)
== END 2022-01-06 01:06 | disposition home or self-care (01) ==
LOC: LOS 01:06
PROVIDERS: PCP Family Medicine; Visit Provider Family Medicine
DX: E11.9 Type 2 diabetes mellitus without complications (principal); R79.89 Other specified abnormal findings of blood chemistry
CPT/HCPCS: 36415; 80053; 82043; 82570

== ENCOUNTER 2022-01-12 02:42 | Outpatient (RCR) | payer MEDICARE, SELFPAY ==
[2022-01-12 07:49] VITALS: BP 113/75; PULSE 53; RESP 16; TEMP 36.5; O2SAT 94
[2022-01-12] MEDS: Normal Saline Flush 10 ML SYR IVP (07:53)
[2022-01-12] MEDS: TOCILIZUMAB 800 MG in Normal Saline 60 ML 100 MG IVPB (07:54)
== END 2022-02-08 23:59 | disposition home or self-care (01) ==
LOC: INF 02:42
PROVIDERS: PCP Family Medicine; Visit Provider Nurse Practitioner Family
DX: M05.9 Rheumatoid arthritis with rheumatoid factor, unspecified (principal)
CPT/HCPCS: 96365; J3262

== ENCOUNTER 2022-03-09 03:53 | Outpatient (RCR) | payer MEDICARE, SELFPAY ==
[2022-02-09 00:03] VITALS: BP 113/75; PULSE 53; RESP 16; TEMP 36.5
[2022-02-09] MEDS: Normal Saline Flush 10 ML SYR IVP (07:47)
[2022-02-09] MEDS: TOCILIZUMAB 800 MG in Normal Saline 60 ML 100 MG IVPB (07:55)
[2022-02-09 08:07] LABS: Abs Immature Grans 0.02 10^3/uL (0.0-0.06); Absolute Basophil Count 0.06 10^3/uL (0.0-0.2); Absolute Eosinophil Count 0.55 10^3/uL (0.0-0.7); Absolute Lymphocyte Count 2.35 10^3/uL (1.2-3.4); Absolute Monocyte Count 0.75 10^3/uL (0.1-0.8); Absolute Neutrophil Count 2.98 10^3/uL (1.2-6.7); Basophils % 0.9; Eosinophils % 8.2; HCT 43.1 % (36.0-46.0); HGB 14.6 g/dL (11.2-15.7); Immature Grans % 0.3; MCH 31.3 pg (27.0-33.0); MCHC 33.9 % (32.0-36.0); MCV 92 fL (80-95); Monocytes % 11.2; Neutrophils % 44.4; Platelet Count 232 10^3/uL (130-400); RBC 4.67 10^6/uL (3.93-5.22); RDW 13.3 % (11.7-14.6); RDW-SD 45.4 fL; WBC 6.71 10^3/uL (4.4-10.8)
[2022-02-09 08:14] LABS: ALT 40 U/L (14-59); AST 27 U/L (15-37); Albumin 3.9 g/dL (3.4-5.0); Alkaline Phosphatase 65 U/L (46-116); Anion Gap 8.4 mmol/L (3-11); BUN 27 mg/dL (7-18); Bilirubin, Total 0.9 mg/dL (0.2-1.0); CO2 25.6 mmol/L (21.0-32.0); CREATININE 1.1 mg/dL (0.55-1.02); Calcium 8.5 mg/dL (8.5-10.1); Chloride 105 mmol/L (98-107); Estimated GFR 55.42 (mL/min/1.73m2); Glucose 112 mg/dL (74-106); Potassium 4.1 mmol/L (3.5-5.1); Sodium 139 mmol/L (136-145); Total Protein 6.9 g/dL (6.4-8.2)
[2022-02-09 08:15] LABS: C-Reactive Protein < 0.05 mg/dL (0.0-0.3)
[2022-03-09] MEDS: TOCILIZUMAB 800 MG in Normal Saline 60 ML 100 MG IVPB (07:47)
[2022-03-09] MEDS: Normal Saline Flush 10 ML SYR IVP (07:52)
== END 2022-03-10 23:59 | disposition home or self-care (01) ==
LOC: INF 03:53
PROVIDERS: PCP Family Medicine; Visit Provider Nurse Practitioner Family
DX: M05.9 Rheumatoid arthritis with rheumatoid factor, unspecified (principal)
CPT/HCPCS: 80053; 96365; 85025; 86140; J3262

== ENCOUNTER 2022-04-06 03:41 | Outpatient (RCR) | payer MEDICARE, SELFPAY ==
[2022-03-11 00:04] VITALS: BP 113/75; PULSE 53; RESP 16; TEMP 36.5
[2022-04-06] MEDS: Normal Saline Flush 10 ML SYR IVP (07:37)
[2022-04-06] MEDS: TOCILIZUMAB 800 MG in Normal Saline 60 ML 100 MG IVPB (07:46)
== END 2022-04-10 23:59 | disposition home or self-care (01) ==
LOC: INF 03:41
PROVIDERS: PCP Family Medicine; Visit Provider Nurse Practitioner Family
DX: M05.9 Rheumatoid arthritis with rheumatoid factor, unspecified (principal)
CPT/HCPCS: 96365; J3262

== ENCOUNTER 2022-05-03 02:22 | Outpatient (RCR) | payer MEDICARE, SELFPAY ==
[2022-04-11 00:03] VITALS: BP 113/75; PULSE 53; RESP 16; TEMP 36.5
[2022-05-03 07:37] VITALS: BP 120/82; PULSE 64; RESP 16; TEMP 36.6; O2SAT 96
[2022-05-03] MEDS: Normal Saline Flush 10 ML SYR IVP (07:40)
[2022-05-03] MEDS: TOCILIZUMAB 800 MG in Normal Saline 60 ML 100 MG IVPB (07:46)
== END 2022-05-10 23:59 | disposition home or self-care (01) ==
LOC: INF 02:22
PROVIDERS: PCP Family Medicine; Visit Provider Nurse Practitioner Family
DX: M05.9 Rheumatoid arthritis with rheumatoid factor, unspecified (principal)
CPT/HCPCS: 96365; J3262

== ENCOUNTER 2022-05-11 03:41 | Outpatient (CLI) | payer MEDICARE, SELFPAY ==
[2022-05-11 13:18] LABS: ALT 35 U/L (14-59); AST 26 U/L (15-37); Albumin 4.2 g/dL (3.4-5.0); Alkaline Phosphatase 67 U/L (46-116); Anion Gap 8.5 mmol/L (3-11); BUN 27 mg/dL (7-18); CO2 28.5 mmol/L (21.0-32.0); CREATININE 1.1 mg/dL (0.55-1.02); Calcium 9.2 mg/dL (8.5-10.1); Calculated LDL 142 mg/dL (<100); Chloride 103 mmol/L (98-107); Cholesterol 236 mg/dL (<200); Estimated GFR 55.42 (mL/min/1.73m2); Glucose 89 mg/dL (74-106); HDL Cholesterol 71 mg/dL (40-60); Potassium 4.3 mmol/L (3.5-5.1); Sodium 140 mmol/L (136-145); Total Protein 7.1 g/dL (6.4-8.2); Triglyceride 116 mg/dL (<150)
== END 2022-05-11 03:42 | disposition home or self-care (01) ==
LOC: LOS 03:41
PROVIDERS: PCP Family Medicine; Visit Provider Family Medicine
DX: E03.9 Hypothyroidism, unspecified (principal); I10 Essential (primary) hypertension; M06.9 Rheumatoid arthritis, unspecified; R79.89 Other specified abnormal findings of blood chemistry
CPT/HCPCS: 36415; 80053; 80061; 84443

== ENCOUNTER → 2022-05-24 01:01 | Outpatient (CLI) | payer MEDICARE, SELFPAY ==
--- NOTE | 2022-05-24 07:15 | DI.US_ITS ---
Exam(s) US LOWER EXTREMITY VENOUS LT EXAM: US LOWER EXTREMITY VENOUS LT CLINICAL HISTORY: left saphanoeus vs thrombus,elevated creatinine,r79.89,i82.90 TECHNIQUE: Left lower extremity venous ultrasound performed using grayscale, color-flow, and spectra l Doppler analysis. COMPARISON: US US LOWER EXTREMITY VENOUS LT from 04/06/2021 FINDINGS: The left common femoral, femoral and popliteal veins demonstrate normal compressibility, augmentation , and color Doppler. The posterior tibial veins are patent. The saphenofemoral junction is unremarka ble. The greater saphenous vein is patent. There is no evidence of a Dominguez cyst. The soft tissues are unremarkable. IMPRESSION: No evidence of a left lower extremity DVT or superficial thrombophlebitis. DATA REPOSITORY:
== END ==
PROVIDERS: PCP Family Medicine; Visit Provider Family Medicine
DX: R79.89 Other specified abnormal findings of blood chemistry
CPT/HCPCS: 93971

== ENCOUNTER 2022-06-01 02:03 | Outpatient (RCR) | payer MEDICARE, SELFPAY ==
[2022-05-11 00:13] VITALS: BP 120/82; PULSE 64; RESP 16; TEMP 36.6
[2022-06-01] MEDS: TOCILIZUMAB 800 MG in Normal Saline 60 ML 100 MG IVPB (08:04)
[2022-06-01] MEDS: Normal Saline Flush 10 ML SYR IVP (08:04)
== END 2022-06-10 23:59 | disposition home or self-care (01) ==
LOC: INF 02:03
PROVIDERS: PCP Family Medicine; Visit Provider Nurse Practitioner Family
DX: M05.9 Rheumatoid arthritis with rheumatoid factor, unspecified (principal)
CPT/HCPCS: 96365; J3262

== ENCOUNTER 2022-06-29 03:48 | Outpatient (RCR) | payer MEDICARE, SELFPAY ==
[2022-06-11 00:20] VITALS: BP 120/82; PULSE 64; RESP 16; TEMP 36.6
[2022-06-29] MEDS: TOCILIZUMAB 800 MG in Normal Saline 60 ML 100 MG IVPB (07:52)
[2022-06-29] MEDS: Normal Saline Flush 10 ML SYR IVP (07:56)
[2022-06-29 08:01] LABS: Abs Immature Grans 0.02 10^3/uL (0.0-0.06); Absolute Basophil Count 0.12 10^3/uL (0.0-0.2); Absolute Eosinophil Count 0.58 10^3/uL (0.0-0.7); Absolute Lymphocyte Count 3.33 10^3/uL (1.2-3.4); Absolute Monocyte Count 0.69 10^3/uL (0.1-0.8); Absolute Neutrophil Count 2.74 10^3/uL (1.2-6.7); Basophils % 1.6; Eosinophils % 7.8; HCT 46.6 % (36.0-46.0); HGB 15.2 g/dL (11.2-15.7); Immature Grans % 0.3; Lymphocytes % 44.5; MCH 30.8 pg (27.0-33.0); MCHC 32.6 % (32.0-36.0); MCV 95 fL (80-95); MPV 9.4 fL (8.0-11.0); Monocytes % 9.2; Neutrophils % 36.6; Platelet Count 251 10^3/uL (130-400); RBC 4.93 10^6/uL (3.93-5.22); RDW 12.6 % (11.7-14.6); RDW-SD 44.1 fL; WBC 7.48 10^3/uL (4.4-10.8)
[2022-06-29 08:11] LABS: ALT 33 U/L (14-59); AST 24 U/L (15-37); Albumin 4.2 g/dL (3.4-5.0); Alkaline Phosphatase 67 U/L (46-116); Anion Gap 8.9 mmol/L (3-11); BUN 24 mg/dL (7-18); Bilirubin, Total 1.2 mg/dL (0.2-1.0); CO2 28.1 mmol/L (21.0-32.0); CREATININE 1.1 mg/dL (0.55-1.02); Calcium 9.1 mg/dL (8.5-10.1); Chloride 103 mmol/L (98-107); Estimated GFR 55.42 (mL/min/1.73m2); Glucose 98 mg/dL (74-106); Potassium 4.1 mmol/L (3.5-5.1); Sodium 140 mmol/L (136-145); Total Protein 7.4 g/dL (6.4-8.2)
[2022-06-29 08:12] LABS: C-Reactive Protein < 0.05 mg/dL (0.0-0.3)
== END 2022-07-11 23:59 | disposition home or self-care (01) ==
LOC: INF 03:48
PROVIDERS: PCP Family Medicine; Visit Provider Nurse Practitioner Family
DX: M05.9 Rheumatoid arthritis with rheumatoid factor, unspecified (principal)
CPT/HCPCS: 36415; 80053; 96365; 85025; 86140; J3262

== ENCOUNTER 2022-07-27 01:23 | Outpatient (RCR) | payer MEDICARE, SELFPAY ==
[2022-07-12 00:17] VITALS: BP 120/82; PULSE 64; RESP 16; TEMP 36.6
[2022-07-27] MEDS: Normal Saline Flush 10 ML SYR IVP (07:52)
[2022-07-27] MEDS: TOCILIZUMAB 800 MG in Normal Saline 60 ML 100 MG IVPB (07:52)
== END 2022-08-08 23:59 | disposition home or self-care (01) ==
LOC: INF 01:23
PROVIDERS: PCP Family Medicine; Visit Provider Nurse Practitioner Family
DX: M05.9 Rheumatoid arthritis with rheumatoid factor, unspecified (principal)
CPT/HCPCS: 96365; J3262

== ENCOUNTER 2022-08-04 12:44 | Outpatient (CLI) | payer MEDICARE, SELFPAY ==
[2022-08-04 13:05] LABS: Hemoglobin A1C 5.3 % (<5.7)
[2022-08-04 13:47] LABS: Vitamin B12 1164 pg/mL (193-986)
== END 2022-08-04 12:45 | disposition home or self-care (01) ==
LOC: LOS 12:45
PROVIDERS: PCP Family Medicine; Visit Provider Family Medicine
DX: E11.9 Type 2 diabetes mellitus without complications (principal); E53.8 Deficiency of other specified B group vitamins; G57.92 Unspecified mononeuropathy of left lower limb
CPT/HCPCS: 36415; 82607; 83036

== ENCOUNTER 2022-08-24 01:41 | Outpatient (RCR) | payer MEDICARE, SELFPAY ==
[2022-08-09 00:15] VITALS: BP 120/82; PULSE 64; RESP 16; TEMP 36.6
[2022-08-24] MEDS: TOCILIZUMAB 800 MG in Normal Saline 60 ML 100 MG IVPB (07:54)
[2022-08-24] MEDS: Normal Saline Flush 10 ML SYR IVP (09:04)
== END 2022-09-08 23:59 | disposition home or self-care (01) ==
LOC: INF 01:41
PROVIDERS: PCP Family Medicine; Visit Provider Nurse Practitioner Family
DX: M05.9 Rheumatoid arthritis with rheumatoid factor, unspecified (principal)
CPT/HCPCS: 96365; J3262

== ENCOUNTER → 2022-09-05 08:13 | Outpatient (BNVA) | payer MEDICARE, SELFPAY | PROVIDERS: PCP Family Medicine; Referring Provider Family Medicine; Visit Provider Psychiatry & Neurology Neurology | DX: M79.671 Pain in right foot (principal); M79.672 Pain in left foot | CPT/HCPCS: 99214 ==

== ENCOUNTER 2022-09-21 01:15 | Outpatient (RCR) | payer MEDICARE, SELFPAY ==
[2022-09-09 00:08] VITALS: BP 120/82; PULSE 64; RESP 16; TEMP 36.6
[2022-09-21] MEDS: TOCILIZUMAB 800 MG in Normal Saline 60 ML 100 MG IVPB (07:50)
[2022-09-21] MEDS: Normal Saline Flush 10 ML SYR IVP (08:33)
== END 2022-10-08 23:59 | disposition home or self-care (01) ==
LOC: INF 01:15
PROVIDERS: PCP Family Medicine; Visit Provider Nurse Practitioner Family
DX: M05.9 Rheumatoid arthritis with rheumatoid factor, unspecified (principal)
CPT/HCPCS: 96365; J3262

== ENCOUNTER 2022-10-06 00:20 | Outpatient (CLI) | payer MEDICARE, SELFPAY ==
--- NOTE | 2022-10-06 08:10 | DI.RAD_ITS ---
Exam(s) XR CHEST 2V PA LATERAL EXAM: XR CHEST 2V PA LATERAL CLINICAL HISTORY: cough,R05.9 TECHNIQUE: 2D digital imaging was performed. COMPARISON: 06 April 2021 FINDINGS: HEART: Normal size. Aorta: Not dilated. PULMONARY VASCULATURE: Normal. LUNGS: Clear. PLEURAL SPACE: No pleural effusion or pneumothorax. BONE:Unremarkable for age. IMPRESSION: No acute abnormality. DATA REPOSITORY: RADIATION DOSE DELIVERED:
== END 2022-10-06 00:40 ==
LOC: DI 00:21
PROVIDERS: PCP Family Medicine; Visit Provider Family Medicine
DX: R05.9 Cough, unspecified (principal)
CPT/HCPCS: 71046

== ENCOUNTER 2022-10-19 01:08 | Outpatient (CLI) | payer MEDICARE, SELFPAY ==
--- NOTE | 2022-10-19 07:30 | DI.CT_ITS ---
Exam(s) CT NECK W EXAM: CT NECK W INDICATION: neck mass, dysphagia,COUGH,R05.9,R22.1. COMPARISON: CT CT NECK W from 05/10/2020 TECHNIQUE: FINDINGS: VISUALIZED PARANASAL SINUSES: Unremarkable. NASOPHARYNX: Unremarkable ORODENTAL: Difficult to assess because of abundant beam hardening artifact from dental fillings. No obvious findings. OROPHARYNX: Calcified tonsilliths but no evidence of tonsillar abscess. No prevertebral swelling in the retropharyngeal space. HYPOPHARYNX: Unremarkable. Valleculae and epiglottis and aryepiglottic folds appear normal. VOCAL CORDS: Unremarkable. No masses evident. Subglottic airway appears unremarkable. THYROID GLAND: Both lobes are miniscule SALIVARY GLANDS: Unremarkable. No significant findings in the parotid and submandibular glands. LYMPH NODES: There is no adenopathy evident in the neck and supraclavicular regions. OTHER: There is variant anatomy of the aortic arch. There is an aberrant right subclavian artery. T his is attains the right-side bypassing between the posterior wall of the esophagus and the adjacent thoracic vertebral body VISUALIZED LUNG APICES: No significant findings. VASCULAR: There is some calcified plaque at the origin of both internal carotid arteries. No critica l stenosis. IMPRESSION: 1. No evidence of significant mass nor lymphadenopathy in the neck. 2. Some calcified plaque is noted in the proximal internal carotid arteries on both sides the neck. If clinically indicated further study with Doppler ultrasound can be performed. 3. Both thyroid lobes are small. RADIATION DOSE DELIVERED: 511.97mGy.cm Total DLP DATA REPOSITORY: All CT scans at this facility are submitted to the National Radiology Data Registry (NRDR) Dose Index Registry (DIR) with the [employer] ([employer]). RADIATION OPTIMIZATION: All CT scans at this facility use at least one of these dose optimization te chniques: automated exposure control; mA and/or kV adjustment per patient size (includes targeted exa ms where dose is matched to clinical indication); or iterative reconstruction.
[2022-10-19] MEDS: Omnipaque 350 MG/ML 500 ML BTL-Imaging package IJ (10:33)
[2022-10-19] MEDS: Normal Saline - Diluent 50 ML VIAL IJ (10:36)
== END 2022-10-19 01:28 ==
LOC: DI 01:09
PROVIDERS: PCP Family Medicine; Visit Provider Family Medicine
DX: R22.1 Localized swelling, mass and lump, neck (principal); R05.1 Acute cough
CPT/HCPCS: 36415; 70491; 80053; 96365; 85025; 86140; J3262

== ENCOUNTER 2022-10-19 02:15 | Outpatient (RCR) | payer MEDICARE, SELFPAY ==
[2022-10-09 00:05] VITALS: BP 120/82; PULSE 64; RESP 16; TEMP 36.6
[2022-10-19 07:57] LABS: Abs Immature Grans 0.04 10^3/uL (0.0-0.06); Absolute Basophil Count 0.09 10^3/uL (0.0-0.2); Absolute Eosinophil Count 0.68 10^3/uL (0.0-0.7); Absolute Lymphocyte Count 2.29 10^3/uL (1.2-3.4); Absolute Monocyte Count 0.82 10^3/uL (0.1-0.8); Absolute Neutrophil Count 2.61 10^3/uL (1.2-6.7); Basophils % 1.4; Eosinophils % 10.4; HCT 45.3 % (36.0-46.0); Immature Grans % 0.6; Lymphocytes % 35.1; MCH 31.2 pg (27.0-33.0); MCHC 33.1 % (32.0-36.0); MCV 94 fL (80-95); MPV 9.5 fL (8.0-11.0); Monocytes % 12.6; Neutrophils % 39.9; Platelet Count 228 10^3/uL (130-400); RBC 4.81 10^6/uL (3.93-5.22); RDW 13.2 % (11.7-14.6); RDW-SD 45.4 fL; WBC 6.53 10^3/uL (4.4-10.8)
[2022-10-19] MEDS: Normal Saline Flush 10 ML SYR IVP (07:57)
[2022-10-19] MEDS: TOCILIZUMAB 800 MG in Normal Saline 60 ML 100 MG IVPB (07:57)
[2022-10-19 08:13] LABS: ALT 39 U/L (14-59); AST 29 U/L (15-37); Albumin 3.9 g/dL (3.4-5.0); Alkaline Phosphatase 66 U/L (46-116); Anion Gap 7.3 mmol/L (3-11); BUN 23 mg/dL (7-18); Bilirubin, Total 0.8 mg/dL (0.2-1.0); CO2 26.7 mmol/L (21.0-32.0); CREATININE 1.1 mg/dL (0.55-1.02); Calcium 9.1 mg/dL (8.5-10.1); Chloride 105 mmol/L (98-107); Estimated GFR 55.42 (mL/min/1.73m2); Glucose 103 mg/dL (74-106); Sodium 139 mmol/L (136-145); Total Protein 6.7 g/dL (6.4-8.2)
[2022-10-19 08:15] LABS: C-Reactive Protein < 0.05 mg/dL (0.0-0.3)
== END 2022-11-08 23:59 | disposition home or self-care (01) ==
LOC: INF 02:15
PROVIDERS: PCP Family Medicine; Visit Provider Nurse Practitioner Family
DX: M05.9 Rheumatoid arthritis with rheumatoid factor, unspecified (principal)
CPT/HCPCS: 36415; 80053; 96365; 85025; 86140; J3262

== ENCOUNTER 2022-11-16 02:46 | Outpatient (RCR) | payer MEDICARE, SELFPAY ==
[2022-11-09 00:04] VITALS: BP 120/82; PULSE 64; RESP 16; TEMP 36.6
[2022-11-16] MEDS: Normal Saline Flush 10 ML SYR IVP (07:46)
[2022-11-16] MEDS: TOCILIZUMAB 800 MG in Normal Saline 60 ML 100 MG IVPB (07:46)
== END 2022-12-08 23:59 | disposition home or self-care (01) ==
LOC: INF 02:46
PROVIDERS: PCP Family Medicine; Visit Provider Nurse Practitioner Family
DX: M05.9 Rheumatoid arthritis with rheumatoid factor, unspecified (principal)
CPT/HCPCS: 96365; J3262

== ENCOUNTER 2022-12-11 02:57 | Outpatient (CLI) | payer MEDICARE, SELFPAY ==
[2022-12-12 10:55] LABS: Lyme Ab w Rflx to Lyme Confirm Negative (Negative)
[2022-12-16 17:19] LABS: Anaplasma phagocytophilum Negative (Negative); B. miyamotoi PCR Negative (Negative); Babesia divergens/MO-1 Negative (Negative); Babesia duncani Negative (Negative); Babesia microti Negative (Negative); Ehrlichia chaffeensis Negative (Negative); Ehrlichia ewingii/canis Negative (Negative); Ehrlichia muris eauclairensis Negative (Negative)
== END 2022-12-11 02:58 | disposition home or self-care (01) ==
LOC: LOS 02:57
PROVIDERS: PCP Family Medicine; Visit Provider Physician Assistant
DX: T14.8XXA Other injury of unspecified body region, initial encounter (principal); W57.XXXA Bitten or stung by nonvenomous insect and other nonvenomous arthropods, initial encounter
CPT/HCPCS: 36415; 87798; 86618

== ENCOUNTER 2022-12-13 02:18 | Outpatient (RCR) | payer MEDICARE, SELFPAY ==
[2022-12-09 00:13] VITALS: BP 120/82; PULSE 64; RESP 16; TEMP 36.6
[2022-12-13] MEDS: TOCILIZUMAB 800 MG in Normal Saline 60 ML 100 MG IVPB (08:00)
[2022-12-13] MEDS: Normal Saline Flush 10 ML SYR IVP (08:01)
== END 2023-01-08 23:59 | disposition home or self-care (01) ==
LOC: INF 02:18
PROVIDERS: PCP Family Medicine; Visit Provider Nurse Practitioner Family
DX: M05.9 Rheumatoid arthritis with rheumatoid factor, unspecified (principal)
CPT/HCPCS: 96365; J3262

== ENCOUNTER 2023-02-07 01:24 | Outpatient (RCR) | payer MEDICARE, SELFPAY ==
[2023-01-09 00:05] VITALS: BP 120/82; PULSE 64; RESP 16; TEMP 36.6
[2023-01-10] MEDS: Normal Saline Flush 10 ML SYR IVP (07:51)
[2023-01-10] MEDS: TOCILIZUMAB 800 MG in Normal Saline 60 ML 100 MG IVPB (07:51)
[2023-02-07] MEDS: Normal Saline Flush 10 ML SYR IVP (08:03)
[2023-02-07] MEDS: TOCILIZUMAB 800 MG in Normal Saline 60 ML 100 MG IVPB (08:03)
== END 2023-02-08 23:59 | disposition home or self-care (01) ==
LOC: INF 01:24
PROVIDERS: PCP Family Medicine; Visit Provider Nurse Practitioner Family
DX: M05.9 Rheumatoid arthritis with rheumatoid factor, unspecified (principal)
CPT/HCPCS: 96365; J3262

== ENCOUNTER 2023-02-27 03:54 | Outpatient (CLI) | payer MEDICARE, SELFPAY ==
[2023-02-27] MEDS: Methacholine 100 MG VIAL IH (14:58)
[2023-02-27] MEDS: Inhaler, Assist Device 1 EACH MC (14:59)
[2023-02-27] MEDS: Albuterol HFA 18 GM 200 PUFF INH IH (14:59)
--- NOTE | 2023-03-01 07:18 | PFT_ITS ---
Date of service: 02/27/23 Time of Service: 13:22 Pulmonary Function Test Result Indications: Chronic cough Interpretation Spirometry: There is no airflow limitation at baseline. There was a 22% decrease in FEV1 wi th administration of 1.0mg/mL methacholine. Lung Volumes: Normal lung volumes Diffusion Capacity: Normal diffusion Airway Pressure: Normal airways resistance Impression Normal pulmonary function testing with a positive methacholine challenge Clinical Correlation therefore is recommended.
== END 2023-02-27 03:55 | disposition home or self-care (01) ==
PROVIDERS: PCP Family Medicine; Visit Provider Student in an Organized Health Care Education/Training Program
DX: R05.3 Chronic cough (principal)
CPT/HCPCS: 94060; 94070; 94726; 94729; 94010; J7674

== ENCOUNTER 2023-03-07 01:59 | Outpatient (RCR) | payer MEDICARE, SELFPAY ==
[2023-02-09 00:15] VITALS: BP 120/82; PULSE 64; RESP 16; TEMP 36.6
[2023-03-07] MEDS: Normal Saline Flush 10 ML SYR IVP (08:00)
[2023-03-07] MEDS: TOCILIZUMAB 800 MG in Normal Saline 60 ML 100 MG IVPB (08:00)
[2023-03-07 08:02] LABS: Abs Immature Grans 0.02 10^3/uL (0.0-0.06); Absolute Eosinophil Count 0.33 10^3/uL (0.0-0.7); Absolute Lymphocyte Count 2.23 10^3/uL (1.2-3.4); Absolute Monocyte Count 0.67 10^3/uL (0.1-0.8); Basophils % 1.8; Eosinophils % 5.8; HCT 43.2 % (36.0-46.0); HGB 14.5 g/dL (11.2-15.7); Immature Grans % 0.4; Lymphocytes % 39.5; MCH 31.5 pg (27.0-33.0); MCHC 33.6 % (32.0-36.0); MCV 94 fL (80-95); MPV 9.7 fL (8.0-11.0); Monocytes % 11.9; Neutrophils % 40.6; Platelet Count 207 10^3/uL (130-400); RDW 12.9 % (11.7-14.6); RDW-SD 44.4 fL; WBC 5.65 10^3/uL (4.4-10.8)
[2023-03-07 08:21] LABS: ALT 31 U/L (14-59); AST 27 U/L (15-37); Albumin 3.9 g/dL (3.4-5.0); Alkaline Phosphatase 70 U/L (46-116); Anion Gap 10.7 mmol/L (3-11); BUN 28 mg/dL (7-18); Bilirubin, Total 1.2 mg/dL (0.2-1.0); C-Reactive Protein 0.11 mg/dL (0.0-0.3); CO2 25.3 mmol/L (21.0-32.0); Calcium 9.1 mg/dL (8.5-10.1); Chloride 104 mmol/L (98-107); Estimated GFR 61.75 (mL/min/1.73m2); Glucose 98 mg/dL (74-106); Potassium 3.7 mmol/L (3.5-5.1); Sodium 140 mmol/L (136-145); Total Protein 6.9 g/dL (6.4-8.2)
== END 2023-03-10 23:59 | disposition home or self-care (01) ==
LOC: INF 01:59
PROVIDERS: PCP Family Medicine; Visit Provider Nurse Practitioner Family
DX: M05.9 Rheumatoid arthritis with rheumatoid factor, unspecified (principal)
CPT/HCPCS: 36415; 80053; 96365; 85025; 86140; J3262

== ENCOUNTER 2023-04-04 03:17 | Outpatient (RCR) | payer MEDICARE, SELFPAY ==
[2023-03-11 00:15] VITALS: BP 120/82; PULSE 64; RESP 16; TEMP 36.6
[2023-04-04] MEDS: TOCILIZUMAB 800 MG in Normal Saline 60 ML 100 MG IVPB (08:03)
[2023-04-04] MEDS: Normal Saline Flush 10 ML SYR IVP (08:03)
== END 2023-04-10 23:59 | disposition home or self-care (01) ==
LOC: INF 03:17
PROVIDERS: PCP Family Medicine; Visit Provider Nurse Practitioner Family
DX: M06.9 Rheumatoid arthritis, unspecified (principal)
CPT/HCPCS: 96365; J3262

== ENCOUNTER 2023-04-19 12:51 | Outpatient (CLI) | payer MEDICARE, SELFPAY ==
[2023-04-19 11:10] LABS: Calculated LDL 164 mg/dL (<100); Cholesterol 262 mg/dL (<200); HDL Cholesterol 76 mg/dL (40-60); TSH (W/Ref FT4) 2.25 uIU/mL (0.36-3.74); Triglyceride 110 mg/dL (<150)
[2023-04-19 12:24] LABS: Hemoglobin A1C 5.3 % (<5.7)
== END 2023-04-19 12:52 | disposition home or self-care (01) ==
LOC: LBO 12:51
PROVIDERS: PCP Family Medicine; Visit Provider Family Medicine
DX: E03.9 Hypothyroidism, unspecified (principal); I10 Essential (primary) hypertension; E11.9 Type 2 diabetes mellitus without complications
CPT/HCPCS: 36415; 80061; 83036; 84443

== ENCOUNTER 2023-05-02 03:11 | Outpatient (RCR) | payer MEDICARE, SELFPAY ==
[2023-04-11 00:20] VITALS: BP 120/82; PULSE 64; RESP 16; TEMP 36.6
[2023-05-02] MEDS: TOCILIZUMAB 800 MG in Normal Saline 60 ML 100 MG IVPB (08:03)
== END 2023-05-10 23:59 | disposition home or self-care (01) ==
LOC: INF 03:11
PROVIDERS: PCP Family Medicine; Visit Provider Nurse Practitioner Family
DX: M05.9 Rheumatoid arthritis with rheumatoid factor, unspecified (principal)
CPT/HCPCS: 96365; J3262

== ENCOUNTER → 2023-05-17 09:48 | Outpatient (BNVA) | payer MEDICARE, SELFPAY | PROVIDERS: PCP Family Medicine; Referring Provider Family Medicine; Visit Provider Physician Assistant Surgical | DX: R05.9 Cough, unspecified (principal); Z87.891 Personal history of nicotine dependence | CPT/HCPCS: 99213 ==

== ENCOUNTER 2023-05-30 03:46 | Outpatient (RCR) | payer MEDICARE, SELFPAY ==
[2023-05-11 00:24] VITALS: BP 120/82; PULSE 64; RESP 16; TEMP 36.6
[2023-05-30] MEDS: TOCILIZUMAB 800 MG in Normal Saline 60 ML 100 MG IVPB (10:28)
[2023-05-30] MEDS: Normal Saline Flush 10 ML SYR IVP (10:28)
== END 2023-06-10 23:59 | disposition home or self-care (01) ==
LOC: INF 03:46
PROVIDERS: PCP Family Medicine; Visit Provider Nurse Practitioner Family
DX: M05.9 Rheumatoid arthritis with rheumatoid factor, unspecified (principal)
CPT/HCPCS: 96365; J3262

== ENCOUNTER 2023-06-27 02:32 | Outpatient (RCR) | payer MEDICARE, SELFPAY ==
[2023-06-11 00:23] VITALS: BP 120/82; PULSE 64; RESP 16; TEMP 36.6
[2023-06-27] MEDS: TOCILIZUMAB 800 MG in Normal Saline 60 ML 100 MG IVPB (07:48)
[2023-06-27] MEDS: Normal Saline Flush 10 ML SYR IVP (07:48)
[2023-06-27 07:55] LABS: Abs Immature Grans 0.03 10^3/uL (0.0-0.06); Absolute Lymphocyte Count 2.23 10^3/uL (1.2-3.4); Absolute Monocyte Count 0.55 10^3/uL (0.1-0.8); Absolute Neutrophil Count 2.36 10^3/uL (1.2-6.7); Basophils % 1.7; Eosinophils % 10.2; HCT 42.4 % (36.0-46.0); HGB 14.1 g/dL (11.2-15.7); Immature Grans % 0.5; MCH 31.1 pg (27.0-33.0); MCHC 33.3 % (32.0-36.0); MCV 93 fL (80-95); MPV 9.5 fL (8.0-11.0); Monocytes % 9.4; Neutrophils % 40.2; Platelet Count 232 10^3/uL (130-400); RBC 4.54 10^6/uL (3.93-5.22); RDW 13.1 % (11.7-14.6); RDW-SD 45.1 fL; WBC 5.87 10^3/uL (4.4-10.8)
[2023-06-27 08:10] LABS: ALT 33 U/L (14-59); AST 22 U/L (15-37); Albumin 3.7 g/dL (3.4-5.0); Alkaline Phosphatase 61 U/L (46-116); BUN 21 mg/dL (7-18); Bilirubin, Total 0.8 mg/dL (0.2-1.0); CREATININE 1.1 mg/dL (0.55-1.02); Calcium 8.9 mg/dL (8.5-10.1); Chloride 106 mmol/L (98-107); Estimated GFR 55.07 (mL/min/1.73m2); Glucose 102 mg/dL (74-106); Potassium 3.9 mmol/L (3.5-5.1); Sodium 138 mmol/L (136-145); Total Protein 6.5 g/dL (6.4-8.2)
== END 2023-07-11 23:59 | disposition home or self-care (01) ==
LOC: INF 02:32
PROVIDERS: PCP Family Medicine; Visit Provider Nurse Practitioner Family
DX: M05.9 Rheumatoid arthritis with rheumatoid factor, unspecified (principal)
CPT/HCPCS: 36415; 80053; 96365; 85025; J3262

== ENCOUNTER 2023-07-25 02:25 | Outpatient (RCR) | payer MEDICARE, SELFPAY ==
[2023-07-12 00:26] VITALS: BP 120/82; PULSE 64; RESP 16; TEMP 36.6
[2023-07-25] MEDS: TOCILIZUMAB 800 MG in Normal Saline 60 ML 100 MG IVPB (08:40)
[2023-07-25] MEDS: Normal Saline Flush 10 ML SYR IVP (08:40)
== END 2023-08-09 23:59 | disposition home or self-care (01) ==
LOC: INF 02:25
PROVIDERS: PCP Family Medicine; Visit Provider Nurse Practitioner Family
DX: M05.9 Rheumatoid arthritis with rheumatoid factor, unspecified (principal)
CPT/HCPCS: 96365; J3262

== ENCOUNTER → 2023-07-30 01:26 | Outpatient (CLI) | payer MEDICARE, SELFPAY ==
--- NOTE | 2023-07-30 07:30 | DI.MAMMO_ITS ---
Exam(s) MAMMO SCREENING EXAM: MAMMO SCREENING CLINICAL HISTORY: screening,z12.39 TECHNIQUE: Bilateral full field digital CC and MLO mammographic images were obtained with 3D tomosyn thesis and utilizing computer aided detection (CAD). COMPARISON: Available for comparison. FINDINGS: Masses/Architectural Distortion: None seen. Microcalcifications: No suspicious pleomorphic-type are seen. Skin Thickening/Nipple Retraction: None. IMPRESSION: 1. No significant interval change with no specific features of malignancy noted. 2. Unless there is more urgent need, screening mammography is recommended, as per [place] guidelines. BI-RADS Category 1 - Negative Breast Density - Category B - Scattered areas of fibroglandular density Breast density category C or D implies that the patient has dense breast tissue. Dense breast tissue is very common and is not abnormal but dense breast tissue can make it harder to find cancer on a ma mmogram. Also, dense breast tissue may increase their breast cancer risk. This information about the result of the mammogram report was provided to the patient to raise their awareness. Use this report when you speak with the patient about their risks for breast cancer, which includes their family hist ory. At that time, you may recommend for more screening tests (Ultrasound or MRI) as they might be us eful based on their risk. A negative radiographic report should not delay biopsy if a dominant or clinically suspicious mass is present. Up to ten percent of cancers are not identified on mammography. A negative report may reinforce clinical impression. Adenosis and dense breasts may obscure an underlying neoplasm. False positive reports average 6 to 10%. Patient will receive a letter notifying them of these results.
== END ==
PROVIDERS: PCP Family Medicine; Visit Provider Family Medicine
DX: Z12.31 Encounter for screening mammogram for malignant neoplasm of breast (principal)
CPT/HCPCS: 77063; 77067

== ENCOUNTER → 2023-08-17 09:09 | Outpatient (BNVA) | payer MEDICARE, SELFPAY | PROVIDERS: PCP Family Medicine; Referring Provider Family Medicine; Visit Provider Student in an Organized Health Care Education/Training Program | DX: J45.909 Unspecified asthma, uncomplicated (principal) | CPT/HCPCS: 99214 ==

== ENCOUNTER 2023-08-22 03:38 | Outpatient (RCR) | payer MEDICARE, SELFPAY ==
[2023-08-10 00:24] VITALS: BP 120/82; PULSE 64; RESP 16; TEMP 36.6
[2023-08-22] MEDS: TOCILIZUMAB 800 MG in Normal Saline 60 ML 100 MG IVPB (07:57)
[2023-08-22] MEDS: Normal Saline Flush 10 ML SYR IVP (07:57)
== END 2023-09-09 23:59 | disposition home or self-care (01) ==
LOC: INF 03:38
PROVIDERS: PCP Family Medicine; Visit Provider Nurse Practitioner Family
DX: M05.9 Rheumatoid arthritis with rheumatoid factor, unspecified (principal)
CPT/HCPCS: 96365; J3262

== ENCOUNTER → 2023-08-28 08:27 | Outpatient (BNVA) | payer MEDICARE, SELFPAY | PROVIDERS: PCP Family Medicine; Referring Provider Family Medicine; Visit Provider Podiatrist | DX: M67.472 Ganglion, left ankle and foot (principal); L72.9 Follicular cyst of the skin and subcutaneous tissue, unspecified; M79.672 Pain in left foot; D17.9 Benign lipomatous neoplasm, unspecified | CPT/HCPCS: 20550; 99214; J0702 ==

== ENCOUNTER 2023-09-19 05:25 | Outpatient (RCR) | payer MEDICARE, SELFPAY ==
[2023-09-10 00:20] VITALS: BP 120/82; PULSE 64; RESP 16; TEMP 36.6
[2023-09-19] MEDS: TOCILIZUMAB 800 MG in Normal Saline 60 ML 100 MG IVPB (08:02)
[2023-09-19] MEDS: Normal Saline Flush 10 ML SYR IVP (08:07)
== END 2023-10-09 23:59 | disposition home or self-care (01) ==
LOC: INF 05:25
PROVIDERS: PCP Family Medicine; Visit Provider Nurse Practitioner Family
DX: M05.9 Rheumatoid arthritis with rheumatoid factor, unspecified (principal)
CPT/HCPCS: 96365; J3262

== ENCOUNTER → 2023-09-25 08:45 | Outpatient (BNVA) | payer MEDICARE, SELFPAY | PROVIDERS: PCP Family Medicine; Referring Provider Family Medicine; Visit Provider Podiatrist | DX: M67.472 Ganglion, left ankle and foot; L72.9 Follicular cyst of the skin and subcutaneous tissue, unspecified; M79.672 Pain in left foot; D17.9 Benign lipomatous neoplasm, unspecified; I87.2 Venous insufficiency (chronic) (peripheral) | CPT/HCPCS: 99212 ==

== ENCOUNTER 2023-10-17 05:03 | Outpatient (RCR) | payer MEDICARE, SELFPAY ==
[2023-10-10 00:10] VITALS: BP 120/82; PULSE 64; RESP 16; TEMP 36.6
[2023-10-17] MEDS: TOCILIZUMAB 800 MG in Normal Saline 60 ML 100 MG IVPB (07:48)
[2023-10-17] MEDS: Normal Saline Flush 10 ML SYR IVP (07:48)
[2023-10-17 08:12] LABS: Abs Immature Grans 0.02 10^3/uL (0.0-0.06); Absolute Basophil Count 0.11 10^3/uL (0.0-0.2); Absolute Eosinophil Count 0.57 10^3/uL (0.0-0.7); Absolute Lymphocyte Count 2.06 10^3/uL (1.2-3.4); Absolute Monocyte Count 0.62 10^3/uL (0.1-0.8); Absolute Neutrophil Count 2.03 10^3/uL (1.2-6.7); Eosinophils % 10.5 %; HCT 43.8 % (36.0-46.0); HGB 14.9 g/dL (11.2-15.7); Immature Grans % 0.4 %; Lymphocytes % 38.1 %; MCH 31.6 pg (27.0-33.0); MCV 93 fL (80-95); Monocytes % 11.5 %; Neutrophils % 37.5 %; Platelet Count 228 10^3/uL (130-400); RBC 4.72 10^6/uL (3.93-5.22); RDW 12.8 % (11.7-14.6); WBC 5.41 10^3/uL (4.4-10.8)
[2023-10-17 08:30] LABS: ALT 37 U/L (14-59); AST 29 U/L (15-37); Albumin 3.9 g/dL (3.4-5.0); Alkaline Phosphatase 59 U/L (46-116); Anion Gap 11.1 mmol/L (3-11); BUN 25 mg/dL (7-18); Bilirubin, Total 1.5 mg/dL (0.2-1.0); CO2 26.9 mmol/L (21.0-32.0); CREATININE 1.1 mg/dL (0.55-1.02); Calcium 8.7 mg/dL (8.5-10.1); Chloride 107 mmol/L (98-107); Estimated GFR 55.07 (mL/min/1.73m2); Glucose 100 mg/dL (74-106); Potassium 3.7 mmol/L (3.5-5.1); Sodium 145 mmol/L (136-145); Total Protein 6.5 g/dL (6.4-8.2)
[2023-10-17 08:31] LABS: C-Reactive Protein < 0.50 mg/dL (<or=0.5)
== END 2023-11-09 23:59 | disposition home or self-care (01) ==
LOC: INF 05:03
PROVIDERS: Nurse Practitioner Family; PCP Family Medicine; Visit Provider Family Medicine
DX: M05.9 Rheumatoid arthritis with rheumatoid factor, unspecified (principal)
CPT/HCPCS: 36415; 80053; 96365; 85025; 86140; J3262

== ENCOUNTER 2023-11-14 05:10 | Outpatient (RCR) | payer MEDICARE, SELFPAY ==
[2023-11-10 00:21] VITALS: BP 120/82; PULSE 64; RESP 16; TEMP 36.6
[2023-11-14] MEDS: TOCILIZUMAB 800 MG in Normal Saline 60 ML 100 MG IVPB (07:57)
[2023-11-14] MEDS: Normal Saline Flush 10 ML SYR IVP (07:57)
== END 2023-12-09 23:59 | disposition home or self-care (01) ==
LOC: INF 05:10
PROVIDERS: PCP Family Medicine; Visit Provider Family Medicine
DX: M05.79 Rheumatoid arthritis with rheumatoid factor of multiple sites without organ or systems involvement (principal)
CPT/HCPCS: 96365; J3262

== ENCOUNTER → 2023-11-26 02:13 | Outpatient (CLI) | payer MEDICARE, SELFPAY ==
--- NOTE | 2023-11-26 06:15 | DI.US_ITS ---
Exam(s) US ABDOMEN EXAM: US ABDOMEN CLINICAL HISTORY: elevated bilirubin,unspecified jaundice,r17 TECHNIQUE: Ultrasound abdomen performed using standard protocol. COMPARISON: No exams were available for comparison FINDINGS: LIVER: Normal size. Mildly increased echogenicity could moderate steatosis. No focal liver lesions are seen. GALLBLADDER: No evidence of cholelithiasis. No evidence of wall thickening. No pericholecystic fluid identified. ROBERSON'S SIGN: Negative. BILIARY SYSTEM: No intrahepatic or extrahepatic biliary ductal dilation. KIDNEYS: Kidneys are symmetric in size. No evidence of renal calculi. No evidence of hydronephrosis. No renal mass or cyst identified. PANCREAS: Normal where visualized. SPLEEN: Not enlarged. ABDOMINAL AORTA AND IVC: Visualized portions normal caliber. ASCITES: None seen. IMPRESSION: Mild hepatic steatosis. No gallstones or biliary dilatation. DATA REPOSITORY:
== END ==
PROVIDERS: PCP Family Medicine; Visit Provider Family Medicine
DX: K76.0 Fatty (change of) liver, not elsewhere classified (principal)
CPT/HCPCS: 76700

== ENCOUNTER 2024-01-09 01:36 | Outpatient (RCR) | payer MEDICARE, SELFPAY ==
[2023-12-10 00:23] VITALS: BP 120/82; PULSE 64; RESP 16; TEMP 36.6
[2023-12-12] MEDS: TOCILIZUMAB 800 MG in Normal Saline 60 ML 100 MG IVPB (07:59)
[2023-12-12] MEDS: Normal Saline Flush 10 ML SYR IVP (07:59)
[2024-01-09] MEDS: TOCILIZUMAB 800 MG in Normal Saline 60 ML 100 MG IVPB (08:03)
[2024-01-09] MEDS: Normal Saline Flush 10 ML SYR IVP (08:03)
== END 2024-01-09 23:59 | disposition home or self-care (01) ==
LOC: INF 01:36
PROVIDERS: PCP Family Medicine; Visit Provider Family Medicine
DX: M06.9 Rheumatoid arthritis, unspecified (principal)
CPT/HCPCS: 96365; J3262

== ENCOUNTER 2024-02-07 03:17 | Outpatient (RCR) | payer MEDICARE, SELFPAY ==
[2024-01-10 00:14] VITALS: BP 120/82; PULSE 64; RESP 16; TEMP 36.6
[2024-02-07] MEDS: TOCILIZUMAB 800 MG in Normal Saline 60 ML 100 MG IVPB (08:09)
[2024-02-07] MEDS: Normal Saline Flush 10 ML SYR IVP (08:10)
[2024-02-07 08:20] LABS: Abs Immature Grans 0.02 10^3/uL (0.0-0.06); Absolute Basophil Count 0.09 10^3/uL (0.0-0.2); Absolute Lymphocyte Count 2.13 10^3/uL (1.2-3.4); Absolute Monocyte Count 0.64 10^3/uL (0.1-0.8); Basophils % 1.5 %; Eosinophils % 6.8 %; HCT 42.7 % (36.0-46.0); HGB 14.5 g/dL (11.2-15.7); Immature Grans % 0.3 %; Lymphocytes % 36.2 %; MCH 31.7 pg (27.0-33.0); MCV 93 fL (80-95); MPV 9.7 fL (8.0-11.0); Monocytes % 10.9 %; Neutrophils % 44.3 %; Platelet Count 211 10^3/uL (130-400); RBC 4.57 10^6/uL (3.93-5.22); RDW 13.2 % (11.7-14.6); RDW-SD 45.2 fL; WBC 5.88 10^3/uL (4.4-10.8)
[2024-02-07 08:55] LABS: ALT 33 U/L (14-59); AST 24 U/L (15-37); Albumin 3.8 g/dL (3.4-5.0); Alkaline Phosphatase 71 U/L (46-116); Anion Gap 10.2 mmol/L (3-11); BUN 19 mg/dL (7-18); Bilirubin, Total 0.79 mg/dL (0.2-1.0); CO2 25.8 mmol/L (21.0-32.0); CREATININE 1.1 mg/dL (0.55-1.02); Calcium 9.4 mg/dL (8.5-10.1); Chloride 104 mmol/L (98-107); Estimated GFR 54.73 (mL/min/1.73m2); Glucose 93 mg/dL (74-106); Potassium 3.9 mmol/L (3.5-5.1); Sodium 140 mmol/L (136-145); Total Protein 6.7 g/dL (6.4-8.2)
[2024-02-07 08:56] LABS: C-Reactive Protein < 0.50 mg/dL (<or=0.5)
== END 2024-02-09 23:59 | disposition home or self-care (01) ==
LOC: INF 03:17
PROVIDERS: PCP Family Medicine; Visit Provider Family Medicine
DX: M05.79 Rheumatoid arthritis with rheumatoid factor of multiple sites without organ or systems involvement (principal)
CPT/HCPCS: 80053; 96365; 85025; 86140; J3262

== ENCOUNTER → 2024-02-14 09:11 | Outpatient (BNVA) | payer MEDICARE, SELFPAY | PROVIDERS: PCP Family Medicine; Referring Provider Family Medicine; Visit Provider Physician Assistant Surgical | DX: J45.909 Unspecified asthma, uncomplicated (principal) | CPT/HCPCS: 99214 ==

== ENCOUNTER 2024-03-05 02:15 | Outpatient (RCR) | payer MEDICARE, SELFPAY ==
[2024-02-10 00:24] VITALS: BP 120/82; PULSE 64; RESP 16; TEMP 36.6
[2024-03-05] MEDS: TOCILIZUMAB 800 MG in Normal Saline 60 ML 100 MG IVPB (08:11)
[2024-03-05] MEDS: Normal Saline Flush 10 ML SYR IVP (08:12)
== END 2024-03-10 23:59 | disposition home or self-care (01) ==
LOC: INF 02:15
PROVIDERS: PCP Family Medicine; Visit Provider Family Medicine
DX: M05.79 Rheumatoid arthritis with rheumatoid factor of multiple sites without organ or systems involvement (principal)
CPT/HCPCS: 96365; J3262

== ENCOUNTER 2024-04-02 03:13 | Outpatient (RCR) | payer MEDICARE, SELFPAY ==
[2024-03-11 00:12] VITALS: BP 120/82; PULSE 64; RESP 16; TEMP 36.6
[2024-04-02] MEDS: Normal Saline Flush 10 ML SYR IVP (07:59)
[2024-04-02] MEDS: TOCILIZUMAB 800 MG in Normal Saline 60 ML 100 MG IVPB (07:59)
== END 2024-04-10 23:59 | disposition home or self-care (01) ==
LOC: INF 03:13
PROVIDERS: PCP Family Medicine; Visit Provider Family Medicine
DX: M05.79 Rheumatoid arthritis with rheumatoid factor of multiple sites without organ or systems involvement (principal)
CPT/HCPCS: 96365; J3262

== ENCOUNTER 2024-04-30 02:10 | Outpatient (RCR) | payer MEDICARE, SELFPAY ==
[2024-04-11 00:08] VITALS: BP 120/82; PULSE 64; RESP 16; TEMP 36.6
[2024-04-30] MEDS: Normal Saline Flush 10 ML SYR IVP (07:58)
[2024-04-30] MEDS: TOCILIZUMAB 800 MG in Normal Saline 60 ML 100 MG IVPB (07:58)
== END 2024-05-10 23:59 | disposition home or self-care (01) ==
LOC: INF 02:10
PROVIDERS: PCP Family Medicine; Visit Provider Family Medicine
DX: M05.79 Rheumatoid arthritis with rheumatoid factor of multiple sites without organ or systems involvement (principal)
CPT/HCPCS: 20600; 96365; J3262

== ENCOUNTER → 2024-04-30 10:16 | Outpatient (BNVA) | payer MEDICARE, SELFPAY | PROVIDERS: PCP Family Medicine; Referring Provider Family Medicine; Visit Provider Podiatrist | DX: M67.472 Ganglion, left ankle and foot (principal); L72.9 Follicular cyst of the skin and subcutaneous tissue, unspecified; M79.672 Pain in left foot; D17.39 Benign lipomatous neoplasm of skin and subcutaneous tissue of other sites; I87.2 Venous insufficiency (chronic) (peripheral); G57.92 Unspecified mononeuropathy of left lower limb | CPT/HCPCS: 20600; 96365; J0702; J1100; J3262 ==

== ENCOUNTER 2024-05-28 04:06 | Outpatient (RCR) | payer MEDICARE, SELFPAY ==
[2024-05-11 00:20] VITALS: BP 120/82; PULSE 64; RESP 16; TEMP 36.6
[2024-05-28] MEDS: Normal Saline Flush 10 ML SYR IVP (08:14)
[2024-05-28] MEDS: TOCILIZUMAB 800 MG in Normal Saline 60 ML 100 MG IVPB (08:14)
[2024-05-28 08:17] LABS: Abs Immature Grans 0.03 10^3/uL (0.0-0.06); Absolute Basophil Count 0.09 10^3/uL (0.0-0.2); Absolute Eosinophil Count 0.37 10^3/uL (0.0-0.7); Absolute Lymphocyte Count 1.93 10^3/uL (1.2-3.4); Absolute Monocyte Count 0.57 10^3/uL (0.1-0.8); Absolute Neutrophil Count 2.75 10^3/uL (1.2-6.7); Basophils % 1.6 %; Eosinophils % 6.4 %; HGB 14.9 g/dL (11.2-15.7); Immature Grans % 0.5 %; Lymphocytes % 33.6 %; MCH 31.4 pg (27.0-33.0); MCHC 33.1 % (32.0-36.0); MCV 95 fL (80-95); MPV 9.5 fL (8.0-11.0); Monocytes % 9.9 %; Platelet Count 218 10^3/uL (130-400); RBC 4.75 10^6/uL (3.93-5.22); RDW 12.9 % (11.7-14.6); RDW-SD 45.5 fL; WBC 5.74 10^3/uL (4.4-10.8)
[2024-05-28 08:37] LABS: ALT 31 U/L (14-59); AST 23 U/L (15-37); Albumin 3.8 g/dL (3.4-5.0); Alkaline Phosphatase 81 U/L (46-116); BUN 23 mg/dL (7-18); Bilirubin, Total 1.02 mg/dL (0.2-1.0); CREATININE 1.1 mg/dL (0.55-1.02); Calcium 8.6 mg/dL (8.5-10.1); Chloride 108 mmol/L (98-107); Estimated GFR 54.73 (mL/min/1.73m2); Glucose 95 mg/dL (74-106); Potassium 4.3 mmol/L (3.5-5.1); Sodium 143 mmol/L (136-145); Total Protein 6.6 g/dL (6.4-8.2)
[2024-05-28 08:38] LABS: C-Reactive Protein < 0.50 mg/dL (<or=0.5)
== END 2024-06-10 23:59 | disposition home or self-care (01) ==
LOC: INF 04:06
PROVIDERS: Internal Medicine Rheumatology; PCP Family Medicine; Visit Provider Family Medicine
DX: M05.79 Rheumatoid arthritis with rheumatoid factor of multiple sites without organ or systems involvement (principal)
CPT/HCPCS: 80053; 96365; 85025; 86140; J3262

== ENCOUNTER → 2024-05-29 09:21 | Outpatient (BNVA) | payer MEDICARE, SELFPAY | PROVIDERS: PCP Family Medicine; Visit Provider Podiatrist | DX: M67.472 Ganglion, left ankle and foot (principal); M79.672 Pain in left foot; D17.39 Benign lipomatous neoplasm of skin and subcutaneous tissue of other sites; I87.2 Venous insufficiency (chronic) (peripheral); G57.92 Unspecified mononeuropathy of left lower limb; M20.41 Other hammer toe(s) (acquired), right foot; M79.671 Pain in right foot | CPT/HCPCS: 99213 ==

== ENCOUNTER 2024-07-08 02:52 | Outpatient (RCR) | payer MEDICARE, SELFPAY ==
[2024-06-11 00:25] VITALS: BP 120/82; PULSE 64; RESP 16; TEMP 36.6
[2024-07-08] MEDS: TOCILIZUMAB 800 MG in Normal Saline 60 ML 100 MG IVPB (07:53)
[2024-07-08] MEDS: Normal Saline Flush 10 ML SYR IVP (07:54)
== END 2024-07-11 23:59 | disposition home or self-care (01) ==
LOC: INF 02:52
PROVIDERS: PCP Family Medicine; Visit Provider Family Medicine
DX: M05.79 Rheumatoid arthritis with rheumatoid factor of multiple sites without organ or systems involvement (principal)
CPT/HCPCS: 96365; J3262

== ENCOUNTER 2024-07-29 15:26 | Outpatient (REF) | payer MEDICARE, SELFPAY | END 2024-07-29 15:27 | disposition home or self-care (01) | LOC: LBN 15:26 | PROVIDERS: PCP Family Medicine; Visit Provider Physician Assistant | DX: N39.0 Urinary tract infection, site not specified (principal); J02.9 Acute pharyngitis, unspecified; J22 Unspecified acute lower respiratory infection | CPT/HCPCS: 87086 ==

== ENCOUNTER 2024-08-05 02:23 | Outpatient (RCR) | payer MEDICARE, SELFPAY ==
[2024-08-05] MEDS: Normal Saline Flush 5 ML SYR IVP (08:09)
[2024-08-05] MEDS: TOCILIZUMAB 800 MG in Normal Saline 60 ML 100 MG IVPB (08:09)
== END 2024-08-08 23:59 | disposition home or self-care (01) ==
LOC: INF 02:23
PROVIDERS: PCP Family Medicine; Visit Provider Family Medicine
DX: M05.79 Rheumatoid arthritis with rheumatoid factor of multiple sites without organ or systems involvement (principal)
CPT/HCPCS: 96365; J3262

== ENCOUNTER 2024-09-02 01:45 | Outpatient (RCR) | payer MEDICARE, SELFPAY ==
[2024-09-02] MEDS: Normal Saline Flush 5 ML SYR IVP (08:09)
[2024-09-02] MEDS: TOCILIZUMAB 800 MG in Normal Saline 60 ML 100 MG IVPB (08:09)
== END 2024-09-08 23:59 | disposition home or self-care (01) ==
LOC: INF 01:45
PROVIDERS: PCP Family Medicine; Visit Provider Family Medicine
DX: M05.79 Rheumatoid arthritis with rheumatoid factor of multiple sites without organ or systems involvement (principal)
CPT/HCPCS: 96365; J3262

== ENCOUNTER → 2024-09-10 09:37 | Outpatient (BNVA) | payer MEDICARE, SELFPAY | PROVIDERS: PCP Family Medicine; Referring Provider Family Medicine; Visit Provider Physician Assistant Surgical | DX: J45.909 Unspecified asthma, uncomplicated (principal) | CPT/HCPCS: 99214 ==

== ENCOUNTER 2024-09-22 09:05 | Outpatient (CLI) | payer MEDICARE, SELFPAY ==
[2024-09-22 12:35] LABS: Hemoglobin A1C 5.5 % (<5.7)
[2024-09-22 12:56] LABS: ALT 40 U/L (14-59); AST 27 U/L (15-37); Alkaline Phosphatase 74 U/L (46-116); Anion Gap 10.6 mmol/L (3-11); BUN 21 mg/dL (7-18); Bilirubin, Total 1.1 mg/dL (0.2-1.0); CO2 24.4 mmol/L (21.0-32.0); Calcium 9.2 mg/dL (8.5-10.1); Calculated LDL 104 mg/dL (<100); Chloride 110 mmol/L (98-107); Cholesterol 192 mg/dL (<200); Estimated GFR 61.36 (mL/min/1.73m2); Glucose 93 mg/dL (74-106); HDL Cholesterol 73 mg/dL (>or=50); Potassium 4.1 mmol/L (3.5-5.1); Sodium 145 mmol/L (136-145); Total Protein 6.7 g/dL (6.4-8.2); Triglyceride 78 mg/dL (<150); Vitamin B12 515 pg/mL (193-986)
== END 2024-09-22 09:06 | disposition home or self-care (01) ==
LOC: LOS 09:05
PROVIDERS: PCP Family Medicine; Referring Provider Family Medicine; Visit Provider Family Medicine
DX: E11.9 Type 2 diabetes mellitus without complications (principal); I10 Essential (primary) hypertension; E03.9 Hypothyroidism, unspecified; G62.9 Polyneuropathy, unspecified
CPT/HCPCS: 36415; 80053; 80061; 82607; 83036; 84443

== ENCOUNTER 2024-09-30 03:14 | Outpatient (RCR) | payer MEDICARE, SELFPAY ==
[2024-09-30] MEDS: Normal Saline Flush 5 ML SYR IVP (07:57)
[2024-09-30] MEDS: TOCILIZUMAB 800 MG in Normal Saline 60 ML 100 MG IVPB (07:57)
== END 2024-10-08 23:59 | disposition home or self-care (01) ==
LOC: INF 03:14
PROVIDERS: PCP Family Medicine; Visit Provider Family Medicine
DX: M05.79 Rheumatoid arthritis with rheumatoid factor of multiple sites without organ or systems involvement (principal)
CPT/HCPCS: 96365; J3262

== ENCOUNTER 2024-10-27 02:32 | Outpatient (CLI) | payer MEDICARE, SELFPAY ==
--- NOTE | 2024-10-27 08:10 | DI.MAMMO_ITS ---
Exam(s) MAMMO SCREENING EXAM: MAMMO SCREENING CLINICAL HISTORY: screening,z12.39 TECHNIQUE: Mammograms were interpreted according to the usual protocol including computer analysis w [employer] CAD system, tomosynthesis and C-view imaging. COMPARISON: 2015 through 2023 FINDINGS: The breasts are composed of scattered fibroglandular densities, Breast Density category B. No suspicious masses or suspicious microcalcifications are seen. No skin thickening or abnormal axillary lymph nodes are seen. There has been no significant change from prior exams. IMPRESSION: BI-RADS Category 1, Negative mammogram Yearly screening mammography is recommended. Breast Density - Category B, scattered fibroglandular densities. Breast density Category C or D implies that the patient has dense breast tissue. Dense breast tissue can make it harder to find cancer on a mammogram. Dense breast tissue is also associated with an incr eased risk of breast cancer. This information about the result of the mammogram report was provided to the patient to raise their awareness. Use this report when you speak with the patient about their risks for breast cancer, which includes their family history. At that time, you may recommend additional screening tests (Ultrasoun d or MRI) as these tests may add significant information. A negative radiographic report should not delay biopsy if a dominant or clinically suspicious mass is present. Up to ten percent of cancers are not identified on mammography. A negative report may reinforce clinical impression. Adenosis and dense breasts may obscure an underlying neoplasm. False positive reports average 6 to 10%. Patient will receive a letter notifying them of these results.
== END 2024-10-27 02:52 ==
LOC: DI 02:33
PROVIDERS: PCP Family Medicine; Visit Provider Family Medicine
DX: Z12.31 Encounter for screening mammogram for malignant neoplasm of breast (principal); R92.323 Mammographic fibroglandular density, bilateral breasts
CPT/HCPCS: 77063; 77067

== ENCOUNTER 2024-10-28 01:58 | Outpatient (RCR) | payer MEDICARE, SELFPAY ==
[2024-10-28] MEDS: TOCILIZUMAB 800 MG in Normal Saline 60 ML 100 MG IVPB (08:09)
[2024-10-28] MEDS: Normal Saline Flush 10 ML SYR IVP (08:09)
[2024-10-28 08:11] LABS: Abs Immature Grans 0.02 10^3/uL (0.0-0.06); Absolute Basophil Count 0.09 10^3/uL (0.0-0.2); Absolute Eosinophil Count 0.46 10^3/uL (0.0-0.7); Absolute Lymphocyte Count 1.68 10^3/uL (1.2-3.4); Absolute Monocyte Count 0.66 10^3/uL (0.1-0.8); Absolute Neutrophil Count 2.15 10^3/uL (1.2-6.7); Basophils % 1.8 %; Eosinophils % 9.1 %; HCT 45.1 % (36.0-46.0); HGB 14.5 g/dL (11.2-15.7); Immature Grans % 0.4 %; Lymphocytes % 33.2 %; MCH 31.1 pg (27.0-33.0); MCHC 32.2 % (32.0-36.0); MCV 97 fL (80-95); MPV 10.1 fL (8.0-11.0); Neutrophils % 42.5 %; Platelet Count 206 10^3/uL (130-400); RBC 4.66 10^6/uL (3.93-5.22); RDW 13.2 % (11.7-14.6); RDW-SD 46.9 fL; WBC 5.06 10^3/uL (4.4-10.8)
[2024-10-28 08:35] LABS: ALT 35 U/L (14-59); AST 27 U/L (15-37); Albumin 3.8 g/dL (3.4-5.0); Alkaline Phosphatase 83 U/L (46-116); Anion Gap 8.6 mmol/L (3-11); BUN 18 mg/dL (7-18); Bilirubin, Total 0.9 mg/dL (0.2-1.0); CO2 26.4 mmol/L (21.0-32.0); Calcium 8.7 mg/dL (8.5-10.1); Chloride 108 mmol/L (98-107); Estimated GFR 61.36 (mL/min/1.73m2); Glucose 97 mg/dL (74-106); Potassium 4.2 mmol/L (3.5-5.1); Sodium 143 mmol/L (136-145); Total Protein 6.4 g/dL (6.4-8.2)
[2024-10-28 08:39] LABS: C-Reactive Protein < 0.50 mg/dL (<or=0.5)
== END 2024-11-08 23:59 | disposition home or self-care (01) ==
LOC: INF 01:58
PROVIDERS: Internal Medicine Rheumatology; PCP Family Medicine; Visit Provider Family Medicine
DX: M05.79 Rheumatoid arthritis with rheumatoid factor of multiple sites without organ or systems involvement (principal)
CPT/HCPCS: 36415; 80053; 96365; 85025; 86140; J3262

== ENCOUNTER → 2024-11-11 07:54 | Outpatient (BNVA) | payer MEDICARE, SELFPAY | PROVIDERS: PCP Family Medicine; Referring Provider Family Medicine; Visit Provider Podiatrist | DX: M67.472 Ganglion, left ankle and foot (principal); I87.2 Venous insufficiency (chronic) (peripheral); G57.92 Unspecified mononeuropathy of left lower limb; M76.812 Anterior tibial syndrome, left leg; M20.41 Other hammer toe(s) (acquired), right foot | CPT/HCPCS: 20612; 64455 ==

== ENCOUNTER 2024-11-25 03:18 | Outpatient (RCR) | payer MEDICARE, SELFPAY ==
[2024-11-25] MEDS: Normal Saline Flush 10 ML SYR IVP (08:07)
[2024-11-25] MEDS: TOCILIZUMAB 800 MG in Normal Saline 60 ML 100 MG IVPB (08:07)
== END 2024-12-08 23:59 | disposition home or self-care (01) ==
LOC: INF 03:18
PROVIDERS: PCP Family Medicine; Visit Provider Family Medicine
DX: M05.9 Rheumatoid arthritis with rheumatoid factor, unspecified (principal)
CPT/HCPCS: 96365; J3262

== ENCOUNTER → 2024-12-09 08:14 | Outpatient (BNVA) | payer MEDICARE, SELFPAY | PROVIDERS: PCP Family Medicine; Referring Provider Family Medicine; Visit Provider Podiatrist | DX: M67.472 Ganglion, left ankle and foot (principal); L72.9 Follicular cyst of the skin and subcutaneous tissue, unspecified; M79.672 Pain in left foot; D17.39 Benign lipomatous neoplasm of skin and subcutaneous tissue of other sites; I87.2 Venous insufficiency (chronic) (peripheral); G57.92 Unspecified mononeuropathy of left lower limb; M20.41 Other hammer toe(s) (acquired), right foot; M76.812 Anterior tibial syndrome, left leg | CPT/HCPCS: 99213 ==

== ENCOUNTER → 2024-12-10 08:20 | Outpatient (BNVA) | payer MEDICARE, SELFPAY | PROVIDERS: PCP Family Medicine; Referring Provider Family Medicine; Visit Provider Physician Assistant Surgical | DX: J45.909 Unspecified asthma, uncomplicated (principal) | CPT/HCPCS: 99214 ==

== ENCOUNTER 2024-12-23 03:28 | Outpatient (RCR) | payer MEDICARE, SELFPAY ==
[2024-12-23] MEDS: TOCILIZUMAB 800 MG in Normal Saline 60 ML 100 MG IVPB (08:01)
[2024-12-23] MEDS: Normal Saline Flush 10 ML SYR IVP (09:33)
== END 2025-01-08 23:59 | disposition home or self-care (01) ==
LOC: INF 03:28
PROVIDERS: PCP Family Medicine; Visit Provider Family Medicine
DX: M05.79 Rheumatoid arthritis with rheumatoid factor of multiple sites without organ or systems involvement (principal)
CPT/HCPCS: 96365; J3262

== ENCOUNTER → 2025-01-13 09:04 | Outpatient (BNVA) | payer MEDICARE, SELFPAY | PROVIDERS: PCP Family Medicine; Referring Provider Family Medicine; Visit Provider Podiatrist | DX: M67.472 Ganglion, left ankle and foot (principal); G57.92 Unspecified mononeuropathy of left lower limb; M79.672 Pain in left foot; I87.2 Venous insufficiency (chronic) (peripheral); M20.41 Other hammer toe(s) (acquired), right foot; M76.812 Anterior tibial syndrome, left leg | CPT/HCPCS: 20600; J0702; J1100 ==

== ENCOUNTER 2025-01-20 02:13 | Outpatient (RCR) | payer MEDICARE, SELFPAY ==
[2025-01-20] MEDS: Normal Saline Flush 10 ML SYR IVP (07:48)
[2025-01-20] MEDS: TOCILIZUMAB 800 MG in Normal Saline 60 ML 100 MG IVPB (08:29)
== END 2025-02-08 23:59 | disposition home or self-care (01) ==
LOC: INF 02:13
PROVIDERS: PCP Family Medicine; Visit Provider Family Medicine
DX: M05.79 Rheumatoid arthritis with rheumatoid factor of multiple sites without organ or systems involvement (principal)
CPT/HCPCS: 96365; J3262

== ENCOUNTER → 2025-01-21 08:22 | Outpatient (BNVA) | payer MEDICARE, SELFPAY | PROVIDERS: PCP Family Medicine; Referring Provider Family Medicine; Visit Provider Physician Assistant Surgical | DX: J45.909 Unspecified asthma, uncomplicated (principal); Z87.891 Personal history of nicotine dependence | CPT/HCPCS: 99214 ==

== ENCOUNTER 2025-02-17 02:35 | Outpatient (CLI) | payer MEDICARE, SELFPAY ==
[2025-02-17] MEDS: TOCILIZUMAB 800 MG in Normal Saline 60 ML 100 MG IVPB (08:17)
[2025-02-17] MEDS: Normal Saline Flush 10 ML SYR IVP (08:18)
== END 2025-02-17 02:36 | disposition home or self-care (01) ==
LOC: INF 02:35
PROVIDERS: PCP Family Medicine; Visit Provider Family Medicine
DX: M05.79 Rheumatoid arthritis with rheumatoid factor of multiple sites without organ or systems involvement (principal)
CPT/HCPCS: 96365; J3262

== ENCOUNTER 2025-02-20 15:04 | Outpatient (CLI) | payer MEDICARE, SELFPAY ==
--- NOTE | 2025-02-20 10:00 | DI.RAD_ITS ---
Exam(s) XR WRIST LT COMPLETE EXAM: XR WRIST LT COMPLETE CLINICAL HISTORY: evaluate pathology, PAIN IN L WRIST M25.532. TECHNIQUE: 2D digital imaging was performed. COMPARISON: No exams were available for comparison FINDINGS: 3 views No evidence of fracture or dislocation nor significant ulnar variance. Scaphoid and scapholunate distance are normal. There are advanced degenerative changes in the 1st carpometacarpal joint, this being the articulation between the thumb metacarpal and the trapezium of the distal carpal row. No osseous lesions. No radiopaque foreign bodies. IMPRESSION: Advanced degenerative changes in the 1st carpometacarpal joint. No fractures. DATA REPOSITORY: RADIATION DOSE DELIVERED:
== END 2025-02-20 15:24 ==
LOC: DI 15:04
PROVIDERS: PCP Family Medicine; Visit Provider Nurse Practitioner Family
DX: M25.532 Pain in left wrist (principal); M18.9 Osteoarthritis of first carpometacarpal joint, unspecified
CPT/HCPCS: 73110

== ENCOUNTER 2025-03-11 10:39 | Outpatient (CLI) | payer MEDICARE, SELFPAY ==
[2025-03-11 10:46] LABS: Abs Immature Grans 0.09 10^3/uL (0.0-0.06); ESR 2 mm/hr (0-30); HCT 42.0 % (36.0-46.0); HGB 13.6 g/dL (11.2-15.7); Immature Grans % 1.0 %; MCH 30.8 pg (27.0-33.0); MCHC 32.4 % (32.0-36.0); MCV 95 fL (80-95); MPV 9.1 fL (8.0-11.0); Platelet Count 264 10^3/uL (130-400); RBC 4.41 10^6/uL (3.93-5.22); RDW 13.9 % (11.7-14.6); RDW-SD 48.5 fL; WBC 9.18 10^3/uL (4.4-10.8)
[2025-03-11 11:34] LABS: TSH (W/Ref FT4) 1.81 uIU/mL (0.36-3.74)
[2025-03-11 11:35] LABS: C-Reactive Protein < 0.50 mg/dL (<or=0.5)
[2025-03-12 11:43] LABS: Lyme Ab w Rflx to Lyme Confirm Negative (Negative)
[2025-03-14 14:46] LABS: B. miyamotoi PCR Negative (Negative); Babesia divergens/MO-1 Negative (Negative); Ehrlichia muris eauclairensis Negative (Negative)
== END 2025-03-11 10:40 | disposition home or self-care (01) ==
LOC: LBO 10:39
PROVIDERS: Physician Assistant Surgical; PCP Family Medicine; Visit Provider Nurse Practitioner Family
DX: M06.9 Rheumatoid arthritis, unspecified (principal); E03.9 Hypothyroidism, unspecified; J45.909 Unspecified asthma, uncomplicated
CPT/HCPCS: 36415; 85652; 87798; 71046; 82785; 84443; 85025; 86140; 86618

== ENCOUNTER 2025-03-17 03:09 | Outpatient (CLI) | payer MEDICARE, SELFPAY ==
[2025-03-17] MEDS: Normal Saline Flush 10 ML SYR IVP (07:38)
[2025-03-17] MEDS: TOCILIZUMAB 800 MG in Normal Saline 60 ML 100 MG IVPB (08:28)
[2025-03-17 08:39] LABS: Abs Immature Grans 0.08 10^3/uL (0.0-0.06); HCT 41.9 % (36.0-46.0); HGB 13.4 g/dL (11.2-15.7); Immature Grans % 0.9 %; MCH 30.9 pg (27.0-33.0); MCHC 32.0 % (32.0-36.0); MCV 97 fL (80-95); MPV 9.7 fL (8.0-11.0); Platelet Count 244 10^3/uL (130-400); RBC 4.34 10^6/uL (3.93-5.22); RDW 14.1 % (11.7-14.6); RDW-SD 50.2 fL; WBC 9.19 10^3/uL (4.4-10.8)
[2025-03-17 09:09] LABS: ALT 29 U/L (14-59); AST 24 U/L (15-37); Albumin 3.9 g/dL (3.4-5.0); Alkaline Phosphatase 70 U/L (46-116); Anion Gap 8.2 mmol/L (3-11); BUN 28 mg/dL (7-18); Bilirubin, Total 1.1 mg/dL (0.2-1.0); CO2 26.8 mmol/L (21.0-32.0); Calcium 8.5 mg/dL (8.5-10.1); Chloride 107 mmol/L (98-107); Estimated GFR 60.98 (mL/min/1.73m2); Glucose 99 mg/dL (74-106); Potassium 4.3 mmol/L (3.5-5.1); Sodium 142 mmol/L (136-145); Total Protein 6.5 g/dL (6.4-8.2)
[2025-03-17 09:24] LABS: C-Reactive Protein < 0.50 mg/dL (<or=0.5)
== END 2025-03-17 03:10 | disposition home or self-care (01) ==
PROVIDERS: Internal Medicine Rheumatology; PCP Family Medicine; Visit Provider Family Medicine
DX: M05.79 Rheumatoid arthritis with rheumatoid factor of multiple sites without organ or systems involvement (principal)
CPT/HCPCS: 36415; 80053; 96365; 85025; 86140; J3262

== ENCOUNTER 2025-04-03 10:44 | Day surgery (SDC) | payer MEDICARE, SELFPAY ==
[2025-04-03 10:55] VITALS: PULSE 67; RESP 16; TEMP 36; O2SAT 97
[2025-04-03] MEDS: Tropicam./Phenyleph. (1/2.5%) 5 ML BTL OD ×3 (11:09→11:20)
--- NOTE | 2025-04-03 11:11 | W.ANESPRE ---
General Info Date of Service Date Performed: 04/03/25 Height: 5 ft 4.5 in Weight: 121.5 kg Body Mass Index (BMI): 45.2 Surgical Procedure: Operation Date: 04/03/25 12:25 Proposed Procedure Side Surgeon p Cataract Extraction with IOL Implant Right Gilberto Smith MD Meds Allergies and Home Medications Allergies Allergy/AdvReac Type Severity Reaction Status Date / Time shellfish derived Allergy Severe Anaphylaxsi Verified 04/03/25 11:00 s atorvastatin Allergy rash Verified 04/03/25 11:00 hydrochlorothiazide Allergy Rash Verified 04/03/25 11:00 adalimumab (From Humira) AdvReac Intermediate Cold Verified 04/03/25 11:00 sores/vomiting, lips swelled lisinopril AdvReac Intermediate ELEVATED Verified 04/03/25 11:00 CREATINE valsartan AdvReac Intermediate GI Verified 04/03/25 11:00 SHRIMP Allergy Severe Anaphylaxsi Uncoded 04/03/25 11:00 s lobster Allergy Intermediate Anaphylaxis Uncoded 04/03/25 11:00 Home Medication ?Medication ?Instructions ?Recorded D-Mulsion 5 drp PO DAILY 01/09/17 acetaminophen 500 mg capsule 1,000 mg (2 x 500 mg) PO Q8H PRN 03/27/18 pain #90 caps magnesium 30 mg tablet 50 mg PO DAILY 09/07/20 omega-3 fatty acids 500 mg capsule 500 mg PO BID 09/07/20 hydroxychloroquine 200 mg tablet 200 mg PO HS 12/27/20 (Plaquenil) turmeric root extract 500 mg 1,000 mg PO DAILY 07/03/22 capsule tocilizumab 200 mg/10 mL (20 200 mg IV Q4W 09/05/22 mg/mL) intravenous solution vitamins A and D oral emulsion ml PO 08/17/23 levothyroxine 125 mcg tablet 125 mcg PO DAILY #90 tab-caps 08/12/24 atenolol 50 mg tablet 50 mg PO HS #90 tabs 08/19/24 budesonide-formoterol HFA 160 2 puff inhalation BID #10.2 grams 09/10/24 mcg-4.5 mcg/actuation aerosol inhaler (Symbicort) montelukast 10 mg tablet 10 mg PO DAILY #90 tabs 12/10/24 tiotropium bromide 2.5 2 puff inhalation DAILY #4 grams 12/10/24 mcg/actuation mist for inhalation (Spiriva Respimat) amlodipine 10 mg tablet 10 mg PO DAILY #90 tabs 03/23/25 Current Visit Medications: Current Medications Generic Name Dose Route Start Last Admin Trade Name Freq PRN Reason Stop Dose Admin Acetaminophen 1,000 mg 04/03/25 06:00 Acetaminophen 500 Mg Tab PO 05/03/25 05:59 Q4H PRN PRN Balanced Salt Solution 500 ml 04/03/25 06:00 Balanced Salt Soln.-Plus 500 Ml Bag OP 05/03/25 05:59 DIRECTED TEA Miscellaneous Medication 0 ml 04/03/25 06:00 Prednisolone 1%, Moxifloxacin 0.5%, Bromfenac 0.09% 5.6ml Btl OD 05/03/25 05:59 DIRECTED TEA Miscellaneous Medication 0 ml 04/03/25 06:00 Tropicam./Phenyleph. (1/2.5%) 5 Ml Btl OD 05/03/25 05:59 DIRECTED TEA Tetracaine HCl 0 ml 04/03/25 06:00 Tetracaine 0.5% 4 Ml Btl OD 05/03/25 05:59 DIRECTED TEA PFSH Active Problems Active Problems: Problem Status Onset Code Posterior subcapsular age-related cataract, right eye Acute H25.041 Cortical age-related cataract, right eye Acute H25.011 Nuclear age-related cataract, right eye Acute H25.11 Productive cough Acute R05.8 Anterior tibialis tendinitis of left leg Acute M76.812 Neuropathy Acute G62.9 Hammertoe of right foot Acute M20.41 Neuritis of left foot Acute G57.92 Nodular dermatitis Acute ~11/07/23 L30.8 Elevated bilirubin Acute R17 Venous insufficiency Acute I87.2 Lipoma Acute D17.9 Pain in left foot Acute M79.672 Ganglion cyst of left foot Acute M67.472 Asthma Chronic J45.909 Toe anomaly Acute 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 Skin lesion Acute L98.9 Submuscular lipoma of chest Acute D17.1 Cough Acute R05.9 Bilateral foot pain Acute M79.671, M79.672 Anterior tibialis tendinitis Acute M76.819 Equinus contracture of ankle Acute M24.573 Metatarsalgia of both feet Acute M77.41, M77.42 Neuritis Acute M79.2 Elevated serum creatinine Acute R79.89 Neck mass Acute R22.1 Annual physical exam Acute Z00.00 Asthma due to environmental allergies Chronic J45.909 Rheumatoid arthritis Chronic M06.9 Increased BMI Chronic R63.8 Hypothyroidism Chronic 03/20/11 E03.9 Essential hypertension Chronic 03/14/13 I10 Medical History Medical History Pain, foot Neuropathy of left foot Thrombus Cough Welcome to Medicare preventive visit Vitamin D deficiency disease 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 Vicente Presence of tooth-root and mandibular implants Replacement of total knee joint 07/31/17 LEFT KNEE Colonoscopy - IV Sedation (02/09/16) Tobacco Smoking/Tobacco Use Status: Former Tobacco Use Passive smoking exposure: Yes Second hand exposure: Yes Alcohol Alcohol Intake: current Alcohol intake frequency: holidays/special occasions only Alcohol type: beer and hard liquor Substance Use Substance use type: does not use Prental History History 2 Para 2 Hx # Term Pregnancies Multiple births Hx # Pregnancies Ectopic pregnancies AB induced Hx Number of Living Children AB spontaneous Vital Signs and Lab Results Vital Signs Most Recent Vital Signs in EMR: Most Recent Vital Signs Temp Pulse Resp Pulse Ox 36 C L 67 16 97 04/03/25 10:55 04/03/25 10:55 04/03/25 10:55 04/03/25 10:55 Lab Results Complete Blood Count: WBC, (4.4-10.8) 9.19 10^3/uL 03/17/25, 07:30 RBC, (3.93-5.22) 4.34 10^6/uL 03/17/25, 07:30 Hgb, (11.2-15.7) 13.4 g/dL 03/17/25, 07:30 Hct, (36.0-46.0) 41.9 % 03/17/25, 07:30 Plt Count, (130-400) 244 10^3/uL 03/17/25, 07:30 Complete Metabolic Panel: Sodium, (136-145) 142 mmol/L 03/17/25, 07:30 Potassium, (3.5-5.1) 4.3 mmol/L 03/17/25, 07:30 Chloride, (98-107) 107 mmol/L 03/17/25, 07:30 Carbon Dioxide, (21.0-32.0) 26.8 mmol/L 03/17/25, 07:30 BUN, (7-18) 28 mg/dL H 03/17/25, 07:30 Creatinine, (0.55-1.02) 1.0 mg/dL 03/17/25, 07:30 Est GFR (CKD-EPI 2020), (mL/min/1.73m2) 60.98 03/17/25, 07:30 Calcium, (8.5-10.1) 8.5 mg/dL 03/17/25, 07:30 Albumin, (3.4-5.0) 3.9 g/dL 03/17/25, 07:30 Glucose, (74-106) 99 mg/dL 03/17/25, 07:30 C-Reactive Protein, (<or=0.5) < 0.50 mg/dL 03/17/25, 07:30 Liver Function Panel: ALT, (14-59) 29 U/L 03/17/25, 07:30 AST, (15-37) 24 U/L 03/17/25, 07:30 Thyroid Panel: TSH, (0.36-3.74) 1.81 uIU/mL 03/11/25, 10:35 Anesthesia Assessment and Plan Anesthesia History Personal History: No History of Anesthesia Complications Family History: No Family History of Anesthesia Complications Exercise Tolerance Exercise Tolerance: Metabolic Equivalents>4 Pertinent Negatives Pertinent Negatives: No Symptoms of GERD Cardiac & Pulmonary Exam Cardiac Exam: Normal S1/S2 Heart Sounds Pulmonary Exam: Clear Bilateral Breath Sounds Implantable Cardiac Device Does patient have a Pacemaker or an ICD?: No Airway Exam Known Difficult Airway: No Mallampati Class: 2 Mouth Opening: Normal (> 3cm) Thyromental Distance: Greater than 3 cm Neck Range of Motion: Full ROM Neck Circumference: Normal Teeth Condition: Normal Dentition ASA Classification ASA Score: ASA 3 Emergency Case?: No NPO Status NPO Status: NPO Clears >2 hours, Solids >8 hours Anesthesia Plan Resuscitation Status: Full Code Anesthesia Technique: MAC Anesthesia Airway Planned: Natural Airway Monitors Used: Standard Monitors
[2025-04-03 11:12] VITALS: BMI 45.2
[2025-04-03] MEDS: Lidocaine 1% Pres-Free 5 ML VIAL (12:10)
[2025-04-03] MEDS: Duovisc Viscoelastic System EACH 1 EACH (12:10)
[2025-04-03] MEDS: Povidone-Iodine Ophth 30 ML BTL (12:11)
[2025-04-03] MEDS: Balanced Salt Soln.-PLUS 500 ML BAG OP (12:11)
[2025-04-03] MEDS: Phenylephrine/Lidocaine (15/10) MG/ML 1 ML VIAL (12:12)
[2025-04-03] MEDS: Moxifloxacin-PF 1 MG/ML VIAL (12:12)
[2025-04-03] MEDS: Tetracaine 0.5% 4 ML BTL OD (12:13)
[2025-04-03] MEDS: Prednisolone 1%, Moxifloxacin 0.5%, Bromfenac 0.09% 5.6ML BTL OD (12:13)
--- NOTE | 2025-04-03 12:33 | W.ANESPOSTOP ---
Postoperative Evaluation Date, Time and Location Date Performed: 04/03/25 Time Performed: 12:33 Patient Location: Day Surgery Unit Vital Signs Most Recent Imported Vital Signs: Most Recent Vital Signs Temp Pulse Resp Pulse Ox 36 C L 67 16 97 04/03/25 10:55 04/03/25 10:55 04/03/25 10:55 04/03/25 10:55 Pain Score Most Recent Pain Score: Most Recent Pain Score Pain Level 0 04/03/25 10:55 Assessment Mental Status: Awake (Alert & Oriented to Patient Baseline) Airway and Respiratory Function: Patent airway with normal (patient baseline) respiratory exam Cardiovascular Function: Hemodynamically Stable Hydration Status: Adequately Hydrated Nausea & Vomiting: No Nausea or Vomiting Pain: Pt. Denies Any Pain Peripheral Nerve Block: Patient did not receive a nerve block
--- NOTE | 2025-04-03 12:34 | W.PM.DSUDISC ---
Date of service: 04/03/25 Discharge Plan Disposition Patient Disposition: Home Discharge Details Attending Provider: Gilberto Smith Primary Care Provider: Deanne Meredith Home Meds and New Rx's Prescriptions: No Action tocilizumab 200 mg/10 mL (20 mg/mL) solution 200 mg IV Q4W Rx Instructions: administer as a 1 hr infusion budesonide-formoterol [Symbicort] 160-4.5 mcg/actuation HFA aerosol inhaler 2 puff inhalation BID Qty: 10.2 12RF omega-3 fatty acids 500 mg capsule 500 mg PO BID magnesium 30 mg tablet 50 mg PO DAILY turmeric root extract 500 mg capsule 1,000 mg PO DAILY vitamins A and D Emulsion PO amlodipine 10 mg tablet 10 mg PO DAILY Qty: 90 6RF montelukast 10 mg tablet 10 mg PO DAILY Qty: 90 4RF Spiriva Respimat 2.5 mcg/actuation mist 2 puff inhalation DAILY Qty: 4 6RF d-mulsion 5 drp PO DAILY hydroxychloroquine [Plaquenil] 200 mg tablet 200 mg PO HS levothyroxine 125 mcg tablet 125 mcg PO DAILY Qty: 90 4RF atenolol 50 mg tablet 50 mg PO HS Qty: 90 4RF acetaminophen 500 mg capsule 1,000 mg PO Q8H PRN (Reason: pain) Qty: 90 0RF Discharge Instructions Stand Alone Forms: DSU Post-Op Cataract, Irma Norris (DSU) Discharge Orders Discharge Orders: Discharge Order (Routine); Ordered 04/03/25 Ordered By: Gilberto Smith DS: Diagnosis Discharge Diagnosis (1) Posterior subcapsular age-related cataract, right eye: Status: Resolved (2) Cortical age-related cataract, right eye: Status: Resolved (3) Nuclear age-related cataract, right eye: Status: Resolved
--- NOTE | 2025-04-03 12:35 | W.PM.OP ---
Operative Note Operative Note PRE-OP DIAGNOSIS: Nuclear/cortical/posterior subcapsular cataract, right eye POST-OP DIAGNOSIS: same PROCEDURE: Cataract extraction using phacoemulsification with intraocular lens implant, right eye SURGEON: Gilberto Smith ANESTHESIA TYPE: Local By Surgeon and MAC Refer to Anesthesia Record ESTIMATED BLOOD LOSS: 0 PATHOLOGY: none sent COMPLICATIONS: None Patient was transported to: same day Patient's condition: stable Implants: Jose Ramon Clareon [id number] Indications: Progressive decreased vision due to cataract, right eye Procedure Description: CATARACT SURGERY OPERATIVE REPORT PREOPERATIVE DIAGNOSIS: Nuclear/cortical/posterior simple cataract, right eye POSTOPERATIVE DIAGNOSIS: Same OPERATION: Cataract extraction using phacoemulsification with posterior chamber intraocular lens implant, right eye. IOL: IOL Labor Utilization Superintendent/Model: Jose Ramon Clareon [id number] IOL Power: + 12.0 diopters IOL Serial Number: [id number] Optic Diameter: 6.0mm Haptic/Overall Diameter: 13.0mm PHACO INFO: Jose Ramon Place[employer]ion Vision System with OZil and Active Fluidics Cumulative Dispersed Energy (CDE): 5.18 seconds SURGEON: Gilberto Smith MD, BLANE ANESTHESIA: Monitored Anesthesia Care (MAC), with local sub-tenon's anesthetic infiltration COMPLICATIONS: None SPECIMENS: None INDICATIONS FOR PROCEDURE: The patient is a 70-year-old lady with history of myopia who has developed a symptomatic nuclear/cortical/posterior subcapsular cataract in the right eye. She is significantly symptomatic that she desires cataract surgery and attempt to improve and maximize her vision. The option of cataract surgery was offered to the patient and she wished to proceed. See office notes for detailed information. PROCEDURE: The correct surgical eye was identified and marked as the right eye and the pupil was dilated in the preoperative area using mydriatics and cycloplegics. The dilated pupil size was 7.0 mm. The patient elected to proceed without oral sedation. The patient was brought to the operating room where cardiopulmonary monitoring was instituted and surgical time-out was performed, confirming the correct operative eye and IOL power. Topical anesthesia was administered and ophthalmic povidone-iodine 5% was instilled into the conjunctival fornices. The domenic-ocular area was prepped with Betadine 10% solution and draped in the usual sterile fashion for intraocular surgery, including an aperture drape. A Tegaderm transparent film dressing was cut in half and used to cover the lashes and lid margins. Care was taken to sequester the lashes and lid margins under the Tegaderm dressing. A lid speculum was placed between the lids of the operative eye and the Jose Ramon Lux[employer] Revalia operating microscope was maneuvered into position. Jonathan scissors were then used to make a conjunctival buttonhole approximately 6mm posterior to the limbus in the inferonasal quadrant. Blunt dissection was carried out to expose bare sclera, and a blunt-tipped sub-tenon?s anesthesia cannula was introduced and passed posteriorly along the globe where non-preserved plain lidocaine was injected into posterior sub-Tenon?s space. A sideport knife was used to make a paracentesis port. Intraocular phenylephrine/lidocaine was injected into the anterior chamber. The anterior chamber was then filled with viscoelastic. A keratome knife was used to construct a two--plane clear corneal tunnel extending 2.0mm into clear cornea. A flap was raised on the anterior capsule and capsulorhexis forceps were used to complete a continuous curvilinear capsulorhexis of 5.0 mm. Balanced salt solution was then used to perform cortical cleaving hydrodissection and nuclear hydrodelineation until the lens could be freely rotated within the capsular bag. The lens nucleus was then disassembled and removed within the capsular bag and iris plane using phacoemulsification. Residual cortical material was removed using the I/A handpiece. The posterior capsule was carefully polished to remove as much residual lens epithelial cells as safely possible. The capsular bag was then inflated and the anterior chamber deepened with cohesive viscoelastic. The lens implant described above was inserted into the capsular bag using the Jose Ramon Autonome Injector. A Kuglen hook was used to dial the IOL into position. Residual viscoelastic was then removed first from posterior to the IOL, then from the anterior chamber using the I/A handpiece. The lens implant was noted to center nicely within the capsular bag. The incisions were stromally hydrated, and the anterior chamber was reformed using BSS. Then 0.5cc of moxifloxacin 1.0mg/ml were injected into the capsular bag and anterior chamber. The incisions were checked with a Weck spear and found to be secure. Several drops of ophthalmic povidone-iodine 5% were then applied to the eye followed by two drops of combination steroid/NSAID/antibiotic solution. The drapes were removed and a clear plastic protective eye shield was placed over the eye. The patient was then returned to Same Day Surgery in stable condition. Date of Procedure: 04/03/25
[2025-04-03 12:37] VITALS: BP 128/84; PULSE 55; RESP 18; TEMP 36.2; O2SAT 97
== END 2025-04-03 12:54 | disposition home or self-care (01) ==
LOC: SUR 10:44
PROVIDERS: PCP Family Medicine; Visit Provider Ophthalmology
PROC: (CPT 66984; principal; 2025-04-03 12:15)
DX: H25.11 Age-related nuclear cataract, right eye (principal); H25.041 Posterior subcapsular polar age-related cataract, right eye; H25.011 Cortical age-related cataract, right eye
CPT/HCPCS: 66984; 00123; V2632; J2003

== ENCOUNTER 2025-04-10 07:00 | Day surgery (SDC) | payer MEDICARE, SELFPAY ==
[2025-04-10 07:15] VITALS: BP 130/82; PULSE 66; RESP 16; TEMP 36.5; O2SAT 93
[2025-04-10] MEDS: Tropicam./Phenyleph. (1/2.5%) 5 ML BTL OS ×3 (07:36→07:56)
--- NOTE | 2025-04-10 08:16 | W.ANESPRE ---
General Info Date of Service Date Performed: 04/10/25 Height: 5 ft 4.5 in Weight: 118.8 kg Body Mass Index (BMI): 44.2 Surgical Procedure: Operation Date: 04/10/25 09:40 Proposed Procedure Side Surgeon p Cataract Extraction with IOL Implant Left Gilberto Smith MD Meds Allergies and Home Medications Allergies Allergy/AdvReac Type Severity Reaction Status Date / Time shellfish derived Allergy Severe Anaphylaxsi Verified 04/10/25 07:42 s atorvastatin Allergy rash Verified 04/10/25 07:42 hydrochlorothiazide Allergy Rash Verified 04/10/25 07:42 adalimumab (From Humira) AdvReac Intermediate Cold Verified 04/10/25 07:42 sores/vomiting, lips swelled lisinopril AdvReac Intermediate ELEVATED Verified 04/10/25 07:42 CREATINE valsartan AdvReac Intermediate GI Verified 04/10/25 07:42 SHRIMP Allergy Severe Anaphylaxsi Uncoded 04/10/25 07:42 s lobster Allergy Intermediate Anaphylaxis Uncoded 04/10/25 07:42 Home Medication Medication Instructions Recorded D-Mulsion 5 drp PO DAILY 01/09/17 acetaminophen 500 mg capsule 1,000 mg (2 x 500 mg) PO Q8H PRN 03/27/18 pain #90 caps magnesium 30 mg tablet 50 mg PO DAILY 09/07/20 omega-3 fatty acids 500 mg capsule 500 mg PO BID 09/07/20 hydroxychloroquine 200 mg tablet 200 mg PO HS 12/27/20 (Plaquenil) turmeric root extract 500 mg 1,000 mg PO DAILY 07/03/22 capsule tocilizumab 200 mg/10 mL (20 200 mg IV Q4W 09/05/22 mg/mL) intravenous solution vitamins A and D oral emulsion ml PO 08/17/23 levothyroxine 125 mcg tablet 125 mcg PO DAILY #90 tab-caps 08/12/24 atenolol 50 mg tablet 50 mg PO HS #90 tabs 08/19/24 budesonide-formoterol HFA 160 2 puff inhalation BID #10.2 grams 09/10/24 mcg-4.5 mcg/actuation aerosol inhaler (Symbicort) montelukast 10 mg tablet 10 mg PO DAILY #90 tabs 12/10/24 tiotropium bromide 2.5 2 puff inhalation DAILY #4 grams 12/10/24 mcg/actuation mist for inhalation (Spiriva Respimat) amlodipine 10 mg tablet 10 mg PO HS 04/09/25 Current Visit Medications: Current Medications Generic Name Dose Route Start Last Admin Trade Name Freq PRN Reason Stop Dose Admin Acetaminophen 1,000 mg 04/10/25 06:00 Acetaminophen 500 Mg Tab PO 05/10/25 05:59 Q4H PRN PRN Balanced Salt Solution 500 ml 04/10/25 06:00 Balanced Salt Soln.-Plus 500 Ml Bag OP 05/10/25 05:59 DIRECTED TEA Miscellaneous Medication 0 ml 04/10/25 06:00 Prednisolone 1%, Moxifloxacin 0.5%, Bromfenac 0.09% 5.6ml Btl OS 05/10/25 05:59 DIRECTED TEA Miscellaneous Medication 0 ml 04/10/25 06:00 04/10/25 07:56 Tropicam./Phenyleph. (1/2.5%) 5 Ml Btl OS 05/10/25 05:59 1 drp DIRECTED TEA Administration Tetracaine HCl 0 ml 04/10/25 06:00 Tetracaine 0.5% 4 Ml Btl OS 05/10/25 05:59 DIRECTED TEA PFSH Active Problems Active Problems: Problem Status Onset Code Posterior subcapsular age-related cataract of left eye Acute H25.042 Cortical age-related cataract, left eye Acute H25.012 Nuclear age-related cataract, left eye Acute H25.12 Posterior subcapsular age-related cataract, right eye Resolved H25.041 Cortical age-related cataract, right eye Resolved H25.011 Nuclear age-related cataract, right eye Resolved H25.11 Productive cough Acute R05.8 Anterior tibialis tendinitis of left leg Acute M76.812 Neuropathy Acute G62.9 Hammertoe of right foot Acute M20.41 Neuritis of left foot Acute G57.92 Nodular dermatitis Acute ~11/07/23 L30.8 Elevated bilirubin Acute R17 Venous insufficiency Acute I87.2 Lipoma Acute D17.9 Pain in left foot Acute M79.672 Ganglion cyst of left foot Acute M67.472 Asthma Chronic J45.909 Toe anomaly Acute Q74.2 Skin lesion Acute L98.9 Submuscular lipoma of chest Acute D17.1 Cough Acute R05.9 Bilateral foot pain Acute M79.671, M79.672 Anterior tibialis tendinitis Acute M76.819 Equinus contracture of ankle Acute M24.573 Metatarsalgia of both feet Acute M77.41, M77.42 Neuritis Acute M79.2 Elevated serum creatinine Acute R79.89 Neck mass Acute R22.1 Annual physical exam Acute Z00.00 Asthma due to environmental allergies Chronic J45.909 Rheumatoid arthritis Chronic M06.9 Increased BMI Chronic R63.8 Hypothyroidism Chronic 03/20/11 E03.9 Essential hypertension Chronic 03/14/13 I10 Medical History Medical History Pain, foot Neuropathy of left foot Thrombus Cough Welcome to Medicare preventive visit Vitamin D deficiency disease 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 Vicente Presence of tooth-root and mandibular implants Replacement of total knee joint 07/31/17 LEFT KNEE Colonoscopy - IV Sedation (02/09/16) Tobacco Smoking/Tobacco Use Status: Former Tobacco Use Passive smoking exposure: Yes Second hand exposure: Yes Alcohol Alcohol Intake: current Alcohol intake frequency: holidays/special occasions only Alcohol type: beer and hard liquor Substance Use Substance use type: does not use Prental History History 2 Para 2 Hx # Term Pregnancies Multiple births Hx # Pregnancies Ectopic pregnancies AB induced Hx Number of Living Children AB spontaneous Vital Signs and Lab Results Vital Signs Most Recent Vital Signs in EMR: Most Recent Vital Signs Temp Pulse Resp BP Pulse Ox 36.5 C 66 16 130/82 93 04/10/25 07:15 04/10/25 07:15 04/10/25 07:15 04/10/25 07:15 04/10/25 07:15 Lab Results Complete Blood Count: WBC, (4.4-10.8) 9.19 10^3/uL 03/17/25, 07:30 RBC, (3.93-5.22) 4.34 10^6/uL 03/17/25, 07:30 Hgb, (11.2-15.7) 13.4 g/dL 03/17/25, 07:30 Hct, (36.0-46.0) 41.9 % 03/17/25, 07:30 Plt Count, (130-400) 244 10^3/uL 03/17/25, 07:30 Complete Metabolic Panel: Sodium, (136-145) 142 mmol/L 03/17/25, 07:30 Potassium, (3.5-5.1) 4.3 mmol/L 03/17/25, 07:30 Chloride, (98-107) 107 mmol/L 03/17/25, 07:30 Carbon Dioxide, (21.0-32.0) 26.8 mmol/L 03/17/25, 07:30 BUN, (7-18) 28 mg/dL H 03/17/25, 07:30 Creatinine, (0.55-1.02) 1.0 mg/dL 03/17/25, 07:30 Est GFR (CKD-EPI 2020), (mL/min/1.73m2) 60.98 03/17/25, 07:30 Calcium, (8.5-10.1) 8.5 mg/dL 03/17/25, 07:30 Albumin, (3.4-5.0) 3.9 g/dL 03/17/25, 07:30 Glucose, (74-106) 99 mg/dL 03/17/25, 07:30 C-Reactive Protein, (<or=0.5) < 0.50 mg/dL 03/17/25, 07:30 Liver Function Panel: ALT, (14-59) 29 U/L 03/17/25, 07:30 AST, (15-37) 24 U/L 03/17/25, 07:30 Thyroid Panel: TSH, (0.36-3.74) 1.81 uIU/mL 03/11/25, 10:35 Anesthesia Assessment and Plan Anesthesia History Personal History: No History of Anesthesia Complications Family History: No Family History of Anesthesia Complications Exercise Tolerance Exercise Tolerance: Metabolic Equivalents>4 Pertinent Negatives Pertinent Negatives: No Symptoms of GERD Cardiac & Pulmonary Exam Cardiac Exam: Normal S1/S2 Heart Sounds Pulmonary Exam: Clear Bilateral Breath Sounds Implantable Cardiac Device Does patient have a Pacemaker or an ICD?: No Airway Exam Known Difficult Airway: No Mallampati Class: 2 Mouth Opening: Normal (> 3cm) Thyromental Distance: Greater than 3 cm Neck Range of Motion: Full ROM Neck Circumference: Normal Teeth Condition: Normal Dentition ASA Classification ASA Score: ASA 3 Emergency Case?: No NPO Status NPO Status: NPO Clears >2 hours, Solids >8 hours Anesthesia Plan Resuscitation Status: Full Code Anesthesia Technique: MAC Anesthesia Airway Planned: Natural Airway Monitors Used: Standard Monitors
[2025-04-10 08:48] VITALS: BMI 44.2
[2025-04-10] MEDS: Povidone-Iodine Ophth 30 ML BTL (09:06)
[2025-04-10] MEDS: Tetracaine 0.5% 4 ML BTL OS (09:06)
[2025-04-10] MEDS: Lidocaine 1% Pres-Free 5 ML VIAL (09:12)
[2025-04-10] MEDS: Duovisc Viscoelastic System EACH 1 EACH (09:12)
[2025-04-10] MEDS: Phenylephrine/Lidocaine (15/10) MG/ML 1 ML VIAL (09:13)
[2025-04-10] MEDS: Balanced Salt Soln.-PLUS 500 ML BAG OP (09:15)
[2025-04-10] MEDS: Moxifloxacin-PF 1 MG/ML VIAL (09:25)
[2025-04-10] MEDS: Prednisolone 1%, Moxifloxacin 0.5%, Bromfenac 0.09% 5.6ML BTL OS (09:25)
[2025-04-10 09:32] VITALS: BP 146/86; PULSE 69; RESP 16; TEMP 37; O2SAT 96
--- NOTE | 2025-04-10 09:34 | W.PM.DSUDISC ---
Date of service: 04/10/25 Discharge Plan Disposition Patient Disposition: Home Discharge Details Attending Provider: Gilberto Smith Primary Care Provider: Deanne Meredith Home Meds and New Rx's Prescriptions: No Action tocilizumab 200 mg/10 mL (20 mg/mL) solution 200 mg IV Q4W Rx Instructions: administer as a 1 hr infusion budesonide-formoterol [Symbicort] 160-4.5 mcg/actuation HFA aerosol inhaler 2 puff inhalation BID Qty: 10.2 12RF omega-3 fatty acids 500 mg capsule 500 mg PO BID magnesium 30 mg tablet 50 mg PO DAILY turmeric root extract 500 mg capsule 1,000 mg PO DAILY vitamins A and D Emulsion PO montelukast 10 mg tablet 10 mg PO DAILY Qty: 90 4RF Spiriva Respimat 2.5 mcg/actuation mist 2 puff inhalation DAILY Qty: 4 6RF d-mulsion 5 drp PO DAILY hydroxychloroquine [Plaquenil] 200 mg tablet 200 mg PO HS levothyroxine 125 mcg tablet 125 mcg PO DAILY Qty: 90 4RF atenolol 50 mg tablet 50 mg PO HS Qty: 90 4RF acetaminophen 500 mg capsule 1,000 mg PO Q8H PRN (Reason: pain) Qty: 90 0RF amlodipine 10 mg tablet 10 mg PO HS Discharge Instructions Stand Alone Forms: DSU Post-Op Cataract, Irma Norris (DSU) Discharge Orders Discharge Orders: Discharge Order (Routine); Ordered 04/10/25 Ordered By: Gilberto Smith DS: Diagnosis Discharge Diagnosis (1) Posterior subcapsular age-related cataract of left eye: Status: Resolved (2) Cortical age-related cataract, left eye: Status: Resolved (3) Nuclear age-related cataract, left eye: Status: Resolved
--- NOTE | 2025-04-10 09:35 | W.PM.OP ---
Operative Note Operative Note PRE-OP DIAGNOSIS: Nuclear/cortical/posterior subcapsular cataract, left eye POST-OP DIAGNOSIS: same PROCEDURE: Cataract extraction using phacoemulsification with intraocular lens implant, left eye SURGEON: Gilberto Smith ANESTHESIA TYPE: Local By Surgeon and MAC Refer to Anesthesia Record PATHOLOGY: none sent COMPLICATIONS: None Patient was transported to: same day Patient's condition: stable Implants: Jose Ramon Clareon [id number] Indications: Progressive decreased vision due to cataract, left eye Procedure Description: CATARACT SURGERY OPERATIVE REPORT PREOPERATIVE DIAGNOSIS: Nuclear/cortical/posterior subcapsular cataract, left eye POSTOPERATIVE DIAGNOSIS: Same OPERATION: Cataract extraction using phacoemulsification with posterior chamber intraocular lens implant, left eye. IOL: IOL Bottle House Quality Control Technician/Model: Jose Ramon Clareon [id number] IOL Power: + 13.5 diopters IOL Serial Number: [id number] Optic Diameter: 6.0mm Haptic/Overall Diameter: 13.0mm PHACO INFO: Jose Ramon [employer]ion Vision System with OZil and Active Fluidics Cumulative Dispersed Energy (CDE): 3.31 seconds SURGEON: Gilberto Smith MD, BLANE ANESTHESIA: Monitored Anesthesia Care (MAC), with local sub-tenon's anesthetic infiltration COMPLICATIONS: None SPECIMENS: None INDICATIONS FOR PROCEDURE: The patient is a 70-year-old lady with history of diminished visual acuity in both eyes secondary to the development of nuclear/cortical/posterior subcapsular cataract. She is significantly symptomatic that she desires cataract surgery and attempt to improve and maximize her vision. She has already undergone cataract surgery in the right eye and is doing well postoperatively. She now presents for cataract surgery in the left eye. See office notes for detailed information. PROCEDURE: The correct surgical eye was identified and marked as the left eye and the pupil was dilated in the preoperative area using mydriatics and cycloplegics. The dilated pupil size was 8.0 mm. The patient elected to proceed without oral sedation. The patient was brought to the operating room where cardiopulmonary monitoring was instituted and surgical time-out was performed, confirming the correct operative eye and IOL power. Topical anesthesia was administered and ophthalmic povidone-iodine 5% was instilled into the conjunctival fornices. The domenic-ocular area was prepped with Betadine 10% solution and draped in the usual sterile fashion for intraocular surgery, including an aperture drape. A Tegaderm transparent film dressing was cut in half and used to cover the lashes and lid margins. Care was taken to sequester the lashes and lid margins under the Tegaderm dressing. A lid speculum was placed between the lids of the operative eye and the Jose Ramon [employer] operating microscope was maneuvered into position. Jonathan scissors were then used to make a conjunctival buttonhole approximately 6mm posterior to the limbus in the inferonasal quadrant. Blunt dissection was carried out to expose bare sclera, and a blunt-tipped sub-tenon’s anesthesia cannula was introduced and passed posteriorly along the globe where non-preserved plain lidocaine was injected into posterior sub-Tenon’s space. A sideport knife was used to make a paracentesis port. Intraocular phenylephrine/lidocaine was injected into the anterior chamber. The anterior chamber was then filled with viscoelastic. A keratome knife was used construct a two-plane clear corneal tunnel extending 2.0mm into clear cornea. A flap was raised on the anterior capsule and capsulorhexis forceps were used to complete a continuous curvilinear capsulorhexis of 5.0 mm. Balanced salt solution was then used to perform cortical cleaving hydrodissection and nuclear hydrodelineation until the lens could be freely rotated within the capsular bag. The lens nucleus was then disassembled and removed within the capsular bag and iris plane using phacoemulsification. Residual cortical material was removed using the irrigation/aspiration handpiece. The posterior capsule was carefully polished to remove as much residual lens epithelial cells as safely possible. The capsular bag was then inflated and the anterior chamber deepened with viscoelastic. The lens implant described above was inserted into the capsular bag using the Jose Ramon Autonome Injector. A Kuglen hook was used to dial the IOL into position. Residual viscoelastic was then removed first from posterior to the IOL, then from the anterior chamber using the I/A handpiece. The lens implant was noted to center nicely within the capsular bag. The incisions were stromally hydrated, and the anterior chamber was reformed using BSS. Then 0.5cc of moxifloxacin 1.0mg/ml were injected into the capsular bag and anterior chamber. The incisions were checked with a Weck spear and found to be secure. Several drops of ophthalmic povidone-iodine 5% were then applied to the eye followed by two drops of combination steroid/NSAID/antibiotic solution. The drapes were removed and a clear plastic protective eye shield was placed over the eye. The patient was then returned to Same Day Surgery in stable condition. Date of Procedure: 04/10/25
--- NOTE | 2025-04-10 10:01 | W.ANESPOSTOP ---
Postoperative Evaluation Date, Time and Location Date Performed: 04/10/25 Time Performed: 09:47 Patient Location: Day Surgery Unit Vital Signs Most Recent Imported Vital Signs: Most Recent Vital Signs Temp Pulse Resp BP Pulse Ox 37.0 C 69 16 146/86 H 96 04/10/25 09:32 04/10/25 09:32 04/10/25 09:32 04/10/25 09:32 04/10/25 09:32 Pain Score Most Recent Pain Score: Most Recent Pain Score Pain Level 0 04/10/25 09:32 Assessment Mental Status: Awake (Alert & Oriented to Patient Baseline) Airway and Respiratory Function: Patent airway with normal (patient baseline) respiratory exam Cardiovascular Function: Hemodynamically Stable Hydration Status: Adequately Hydrated Nausea & Vomiting: No Nausea or Vomiting Pain: Pt. Denies Any Pain Peripheral Nerve Block: Patient did not receive a nerve block
== END 2025-04-10 09:55 | disposition home or self-care (01) ==
LOC: SUR 07:00
PROVIDERS: PCP Family Medicine; Visit Provider Ophthalmology
PROC: (CPT 66984; principal; 2025-04-10 09:30)
DX: H25.12 Age-related nuclear cataract, left eye (principal); H25.042 Posterior subcapsular polar age-related cataract, left eye; H25.012 Cortical age-related cataract, left eye; Z98.41 Cataract extraction status, right eye
CPT/HCPCS: 66984; 00123; V2632; J2003

== ENCOUNTER 2025-04-14 01:16 | Outpatient (CLI) | payer MEDICARE, SELFPAY ==
[2025-04-14] MEDS: Normal Saline Flush 10 ML SYR IVP (07:52)
[2025-04-14] MEDS: TOCILIZUMAB 800 MG in Normal Saline 60 ML 100 MG IVPB (07:53)
[2025-04-14 08:35] LABS: Abs Immature Grans 0.02 10^3/uL (0.0-0.06); HCT 42.3 % (36.0-46.0); HGB 13.7 g/dL (11.2-15.7); Immature Grans % 0.3 %; MCH 31.1 pg (27.0-33.0); MCHC 32.4 % (32.0-36.0); MCV 96 fL (80-95); MPV 9.6 fL (8.0-11.0); Platelet Count 277 10^3/uL (130-400); RBC 4.41 10^6/uL (3.93-5.22); RDW 12.8 % (11.7-14.6); RDW-SD 46.0 fL; WBC 6.83 10^3/uL (4.4-10.8)
[2025-04-14 08:49] LABS: ALT 39 U/L (14-59); AST 36 U/L (15-37); Albumin 3.9 g/dL (3.4-5.0); Alkaline Phosphatase 75 U/L (46-116); Anion Gap 10.0 mmol/L (3-11); BUN 22 mg/dL (7-18); Bilirubin, Total 0.9 mg/dL (0.2-1.0); CO2 27.0 mmol/L (21.0-32.0); Calcium 8.8 mg/dL (8.5-10.1); Chloride 105 mmol/L (98-107); Glucose 104 mg/dL (74-106); Potassium 4.4 mmol/L (3.5-5.1); Sodium 142 mmol/L (136-145); Total Protein 6.9 g/dL (6.4-8.2)
[2025-04-14 08:52] LABS: C-Reactive Protein < 0.50 mg/dL (<or=0.5)
== END 2025-04-14 01:17 | disposition home or self-care (01) ==
LOC: INF 01:16
PROVIDERS: Internal Medicine Rheumatology; PCP Family Medicine; Visit Provider Nurse Practitioner Family
DX: M05.79 Rheumatoid arthritis with rheumatoid factor of multiple sites without organ or systems involvement (principal)
CPT/HCPCS: 36415; 80053; 96365; 85025; 86140; J3262

== ENCOUNTER → 2025-04-22 08:49 | Outpatient (BNVA) | payer MEDICARE, SELFPAY | PROVIDERS: PCP Family Medicine; Referring Provider Family Medicine; Visit Provider Internal Medicine Pulmonary Disease | DX: J45.50 Severe persistent asthma, uncomplicated (principal); R04.2 Hemoptysis; Z29.11 Encounter for prophylactic immunotherapy for respiratory syncytial virus (RSV); M06.9 Rheumatoid arthritis, unspecified; R05.9 Cough, unspecified; Z87.891 Personal history of nicotine dependence | CPT/HCPCS: 99214; 90679 ==

== ENCOUNTER → 2025-05-08 01:41 | Outpatient (CLI) | payer MEDICARE, SELFPAY ==
--- NOTE | 2025-05-08 13:02 | DI.CT_ITS ---
Exam(s) CT CHEST WO EXAM: CT CHEST WO CLINICAL HISTORY: hemoptysis, hx rheumatoid arthritis and tobacco us, R04.2. TECHNIQUE: Imaging protocol: Axial computed tomography images were obtained and coronal and sagittal reformatted images were created and reviewed. Computer aided detection (CAD) was utilized. CONTRAST MATERIAL: Noncontrast COMPARISON: CR XR CHEST 2V PA LATERAL from 03/11/2025 FINDINGS: Pulmonary parenchyma: Evaluation mildly limited due to respiratory motion. No consolidation. No suspicious nodules. There are few calcified granulomas. No suspicious pulmonary nodules. Interstitial changes: Mild basilar atelectasis versus scarring. Emphysema: Several small blebs at the right lung apex. Tracheobronchial tree: No mucous plugging. No bronchiectasis . Pleura: No effusion or pneumothorax. Heart: The heart is mildly dilated. The coronary arteries show mild calcifications. Aorta: Thoracic aorta non-dilated. Mild atherosclerotic changes. Pulmonary arteries: The main pulmonary artery is prominent, measuring 3.5 cm. Lymph nodes: No enlarged lymph nodes. Bones: Degenerative changes are seen. No evidence of compression fracture. Upper abdomen: Unremarkable moderate-sized hiatal hernia. Soft tissues: Unremarkable. IMPRESSION: No acute abnormality. RADIATION DOSE DELIVERED: 334.98mGy.cm Total DLP 334.98mGy.cm Total DLP DATA REPOSITORY: All CT scans at this facility are submitted to the National Radiology Data Registry (NRDR) Dose Index Registry (DIR) with the [employer] ([employer]). RADIATION OPTIMIZATION: All CT scans at this facility use at least one of these dose optimization techniques: automated exposure control; mA and/or kV adjustment per patient size (includes targeted exams where dose is matched to clinical indication); or iterative reconstruction.
== END ==
LOC: DI 01:41
PROVIDERS: PCP Family Medicine; Visit Provider Internal Medicine Pulmonary Disease
DX: R04.2 Hemoptysis (principal)
CPT/HCPCS: 71250

== ENCOUNTER 2025-05-13 01:56 | Outpatient (CLI) | payer MEDICARE, SELFPAY ==
[2025-05-13] MEDS: TOCILIZUMAB 800 MG in Normal Saline 60 ML 100 MG IVPB (08:13)
[2025-05-13] MEDS: Normal Saline Flush 10 ML SYR IVP (08:13)
== END 2025-05-13 01:57 | disposition home or self-care (01) ==
LOC: INF 01:56
PROVIDERS: PCP Family Medicine; Visit Provider Nurse Practitioner Family
DX: M05.79 Rheumatoid arthritis with rheumatoid factor of multiple sites without organ or systems involvement (principal)
CPT/HCPCS: 96365; J3262

== ENCOUNTER 2025-05-14 14:47 | Outpatient (CLI) | payer MEDICARE, SELFPAY ==
--- NOTE | 2025-05-14 13:15 | DI.RAD_ITS ---
Exam(s) XR ARTHRITIS SERIES EXAM: XR ARTHRITIS SERIES CLINICAL HISTORY: bilateral hand pain. TECHNIQUE: 2D digital imaging was performed. COMPARISON: No exams were available for comparison FINDINGS: 3 views No evidence of fracture nor subluxations. Advanced degenerative changes are noted in the 1st carpometacarpal joints, more so on the right side. Four moderate degenerative changes are noted the metacarpophalangeal joints. There are no erosions. There is some degenerative changes in the DIP joints IMPRESSION: Multilevel degenerative changes. No erosions. DATA REPOSITORY: RADIATION DOSE DELIVERED:
--- NOTE | 2025-05-14 13:24 | DI.RAD_ITS ---
Exam(s) XR WRIST RT COMPLETE EXAM: XR WRIST RT COMPLETE CLINICAL HISTORY: right wrist and thumb pain. TECHNIQUE: 2D digital imaging was performed. COMPARISON: CR XR WRIST LT COMPLETE from 02/20/2025 FINDINGS: 3 views No evidence of acute fracture or dislocation nor significant ulnar variance. Scaphoid and scapholunate distance are intact. The main finding here is severe advanced degenerative changes at the 1st carpometacarpal joint. No osseous lesions. IMPRESSION: Advanced degenerative changes at the 1st carpometacarpal joint. DATA REPOSITORY: RADIATION DOSE DELIVERED:
== END 2025-05-14 14:48 | disposition home or self-care (01) ==
LOC: DIORS 14:47
PROVIDERS: PCP Family Medicine; Referring Provider Family Medicine; Visit Provider Student in an Organized Health Care Education/Training Program
DX: M18.0 Bilateral primary osteoarthritis of first carpometacarpal joints (principal); M06.841 Other specified rheumatoid arthritis, right hand; M06.842 Other specified rheumatoid arthritis, left hand
CPT/HCPCS: 99213; 20600; J1010; 73110; 73120

== ENCOUNTER 2025-06-10 02:27 | Outpatient (CLI) | payer MEDICARE, SELFPAY ==
[2025-06-10 08:10] LABS: Abs Immature Grans 0.04 10^3/uL (0.0-0.06); HCT 37.8 % (36.0-46.0); HGB 11.9 g/dL (11.2-15.7); Immature Grans % 0.5 %; MCH 29.1 pg (27.0-33.0); MCHC 31.5 % (32.0-36.0); MCV 92 fL (80-95); MPV 9.5 fL (8.0-11.0); Platelet Count 263 10^3/uL (130-400); RBC 4.09 10^6/uL (3.93-5.22); RDW 12.4 % (11.7-14.6); RDW-SD 42.5 fL; WBC 7.81 10^3/uL (4.4-10.8)
[2025-06-10 08:12] VITALS: BP 115/80; PULSE 58; RESP 18; TEMP 36.9; O2SAT 94
[2025-06-10] MEDS: TOCILIZUMAB 800 MG in Normal Saline 60 ML 100 MG IVPB (08:18)
[2025-06-10 08:31] LABS: ALT 28 U/L (10-49); AST 33 U/L (<34); Albumin 4.1 g/dL (3.2-5.0); Alkaline Phosphatase 88 U/L (46-116); Anion Gap 9.4 mmol/L (3-11); BUN 27 mg/dL (9-23); Bilirubin, Total 0.8 mg/dL (0.2-1.2); C-Reactive Protein < 0.50 mg/dL (<=0.50); CO2 24.6 mmol/L (20.0-31.0); Calcium 9.0 mg/dL (8.3-10.6); Chloride 109 mmol/L (98-107); Glucose 83 mg/dL (74-106); Potassium 4.5 mmol/L (3.5-5.1); Sodium 143 mmol/L (136-145); Total Protein 6.5 g/dL (5.7-8.2)
[2025-06-10 09:26] VITALS: BP 124/82; PULSE 61; RESP 18; TEMP 36.9; O2SAT 95
[2025-06-10] MEDS: Normal Saline Flush 10 ML SYR IVP (09:27)
== END 2025-06-10 02:28 | disposition home or self-care (01) ==
PROVIDERS: PCP Family Medicine; Visit Provider Nurse Practitioner Family
DX: M05.79 Rheumatoid arthritis with rheumatoid factor of multiple sites without organ or systems involvement (principal)
CPT/HCPCS: 36415; 80053; 96365; 85025; 86140; J3262